=== PATIENT | female | born 1990 | race Caucasian/White ===

== ENCOUNTER → 2018-12-09 | Outpatient (CLI) | payer BC, OTHER ==
--- NOTE | 2018-12-09 14:42 | US ---
EXAMINATION TYPE: US pelvic complete DATE OF EXAM: 12/09/2018 COMPARISON: NONE CLINICAL HISTORY: 28-year-old female N92.0 Menorrhagia. Heavy, painful periods x 4 years, gotten wors e in past 6 months, 3, para 3, history of ovarian cysts, patient on control TECHNIQUE: Transabdominal sonographic images of the pelvis were acquired. Transvaginal sonographic images were medically necessary to better assess the following anatomy: ovaries Date of LMP: 1 month ago FINDINGS: EXAM MEASUREMENTS: Uterus: 9.1 x 4.4 x 4.9 cm Endometrial Stripe: 1.0 cm Right Ovary: not seen Left Ovary: not seen 1. Uterus: anteverted, mildly heterogeneous 2. Endometrium: wnl 3. Right Ovary: not seen due to overlying bowel gas 4. Left Ovary: not seen due to overlying bowel gas 5. Bilateral Adnexa: wnl 6. Posterior cul-de-sac: wnl IMPRESSION: 1. Mildly heterogeneous myometrium is nonspecific and may reflect diffuse small fibroid change or eunice nomyosis. 2. Either ovary could be visualized due to shadowing from bowel gas in the adnexa. 3. No pelvic free fluid.
== END | disposition home or self-care (01) ==
LOC: RADUSWWP 12:02
PROVIDERS: ATTEND Pediatrics
DX: N85.8 Other specified noninflammatory disorders of uterus (principal)
CPT/HCPCS: 76830; 76856

== ENCOUNTER → 2018-12-09 | Outpatient (CLI) | payer BC, OTHER ==
--- NOTE | 2018-12-09 11:01 | FL ---
EXAMINATION: Cervical and Thoracic Esophagram DATE OF EXAM: 12/09/2018 CLINICAL INDICATION: 28-year-old female with dysphasia and acid reflux for years, sensation of food s ticking in throat. COMPARISON: None Total Fluoroscopy Time: 1 minute 37 seconds. Total images: 37 FINDINGS: The swallowing mechanism is normal and hypopharyngeal anatomy is preserved. The cervical and thoracic portions have a normal course and caliber and normal motility. The mucosa is normal and no persistent filling defect is encountered. There is a small sliding hiatal hernia demonstrated. Valsalva and positional maneuvers could not repr oduce gastroesophageal reflux. This does not exclude its possibility IMPRESSION: 1. Small sliding hiatal hernia. Positional and Valsalva maneuvers on the present exam were unable to reproduce gastroesophageal reflux. This does not exclude its possibility. 2. No stricture or mucosal abnormality.
== END | disposition home or self-care (01) ==
LOC: RADFLWHC 09:29
PROVIDERS: ATTEND Internal Medicine Gastroenterology
DX: K44.9 Diaphragmatic hernia without obstruction or gangrene (principal)
CPT/HCPCS: 74220

== ENCOUNTER → 2019-04-20 | Outpatient (CLI) | payer BC, OTHER ==
--- NOTE | 2019-04-20 11:29 | US ---
EXAMINATION TYPE: US abdomen complete DATE OF EXAM: 04/20/2019 COMPARISON: NONE CLINICAL HISTORY: R10.9 abdominal pain. Pain EXAM MEASUREMENTS: Liver Length: 18 cm Gallbladder Wall: .2 cm CBD: .3 cm Spleen: 10.5 cm Right Kidney: 9.7 x 3.4 x 3.5 cm Left Kidney: 11.1 x 4.5 x3.1 cm Pancreas: Tail obscured by overlying bowel gas Liver: Increased attenuation Gallbladder: wnl Evidence for sonographic Wilson's sign: No CBD: wnl Spleen: wnl Right Kidney: wnl Left Kidney: wnl Upper IVC: wnl Abd Aorta: wnl The visualized liver is heterogeneously hyperechoic. Evaluation for focal masses is suboptimal due t o the heterogeneity. The intrahepatic portion of the IVC and proximal abdominal aorta are within norm al limits. There is no evidence of cholelithiasis. Common bile duct is unremarkable. The visualize d portions of the pancreas are homogenous. The spleen is unremarkable. Kidneys are symmetric and fr ee of hydronephrosis. No renal lesions are seen. IMPRESSION: Probable diffuse fatty infiltration of liver. No suspicious acute findings are seen.
== END | disposition home or self-care (01) ==
LOC: RADUSWWP 10:44
PROVIDERS: ATTEND Nurse Practitioner Adult Health
DX: R10.9 Unspecified abdominal pain (principal)
CPT/HCPCS: 76700

== ENCOUNTER 2019-05-27 23:35 | Emergency (ER) | payer BC, OTHER ==
[2019-05-27 23:46] VITALS: RESP 18
[2019-05-27] MEDS ORDERED: SODIUM CHLORIDE 0.9% 1,000 ML IV STA (23:57)
[2019-05-27] MEDS ORDERED: ONDANSETRON 4 MG/2 ML VIAL IVP STA (23:57)
[2019-05-28 00:39] LABS: Basophils # (A) 0.1 k/uL (0-0.2); Basophils % (A) 1 %; Eosinophils # (A) 0.7 k/uL (0-0.7); Eosinophils % (A) 7 %; HCT 41.9 % (34.0-46.0); HGB 13.5 gm/dL (11.4-16.0); Hypochromasia Slight; Lymphocytes % (A) 30 %; MCH 28.4 pg (25.0-35.0); MCHC 32.3 g/dL (31.0-37.0); MCV 87.8 fL (80.0-100.0); Mean Platelet Volume 6.8; Monocytes # (A) 0.4 k/uL (0-1.0); Monocytes % (A) 4 %; Neutrophils # (A) 5.8 k/uL (1.3-7.7); Neutrophils % (A) 57 %; Platelet Count 346 k/uL (150-450); RBC 4.76 m/uL (3.80-5.40); RDW 12.8 % (11.5-15.5); WBC 10.2 k/uL (3.8-10.6)
[2019-05-28 00:43] LABS: ALT 63 U/L (9-52); AST 39 U/L (14-36); African American GFR (CKD) >90 (>60 ml/min/1.73 sqM); Albumin 4.5 g/dL (3.5-5.0); Alkaline Phosphatase 85 U/L (38-126); Anion Gap 11 mmol/L; Blood Urea Nitrogen 12 mg/dL (7-17); Calcium 9.8 mg/dL (8.4-10.2); Carbon Dioxide 22 mmol/L (22-30); Chloride 108 mmol/L (98-107); Glucose 121 mg/dL (74-99); Sodium 141 mmol/L (137-145); Total Bilirubin 0.3 mg/dL (0.2-1.3); Total Protein 7.7 g/dL (6.3-8.2)
--- NOTE | 2019-05-28 00:46 | ED ---
General Adult HPI - General Chief complaint: Abdominal Pain Stated complaint: Abd Pain Time Seen by Provider: 05/27/19 23:51 Source: patient, RN notes reviewed, old records reviewed Mode of arrival: ambulatory Limitations: no limitations - History of Present Illness Initial comments: 28-year-old female patient past history significant for hysterectomy appr oximately one month ago, [place] for her presenting chief complaint of periumbilical abdominal pain. Patient reports that this pain has began earlier today. She has had some nausea without emesis. Reports that pain is now migrating to right periumbilical/right lower quadrant region. Denies any other complaints. Systemic: Pt denies fatigue, fever/chills, rash. Pt denies weakness, night sweats, weight loss. Neuro: Pt denies headache, visual disturbances, syncope or pre-syncope. HEENT: Pt denies ocular discharge or irritation, otalgia, rhinorrhea, pharyngitis or notable lymphadenopathy. Cardiopulmonary: Pt denies chest pain, SOB, heart palpitations, dyspnea on exertion. Abdominal/GI: Pt denies v/d. : Pt denies dysuria, burning w/ urination, frequency/urgency. Denies new onset urinary or bowel incontinence. MSK: Pt denies myalgia, loss of strength or function in extremities. Neuro: Pt denies new onset weakness, paresthesias. - Related Data Allergies Allergy/AdvReac Type Severity Reaction Status Date / Time ciprofloxacin [From Cipro] Allergy Itching Verified 05/27/19 23:49 codeine Allergy Itching Verified 05/27/19 23:49 nitrofurantoin Allergy Itching Verified 05/27/19 23:49 [From Macrobid] prednisone Allergy Unknown Verified 05/27/19 23:49 Sulfa (Sulfonamide Allergy Itching Verified 05/27/19 23:49 Antibiotics) sulfamethoxazole Allergy Itching Verified 05/27/19 23:49 [From Bactrim] trimethoprim [From Bactrim] Allergy Itching Verified 05/27/19 23:49 phenazopyridine AdvReac Abdominal Verified 05/27/19 23:49 [From Pyridium] Pain Review of Systems ROS Statement: Those systems with pertinent positive or pertinent negative responses have been documented in the HPI. ROS Other: All systems not noted in ROS Statement are negative. Past Medical History Past Medical History: GERD/Reflux Additional Past Medical History / Comment(s): IBS History of Any Multi-Drug Resistant Organisms: None Reported Past Surgical History: Hysterectomy Past Psychological History: Anxiety, Depression Smoking Status: Never smoker Past Alcohol Use History: None Reported Past Drug Use History: None Reported General Exam - General Exam Comments Initial Comments: Constitutional: NAD, AOX3, Pt has pleasant affect. HEENT: NC/AT, trachea midline, neck supple, no lymphadenopathy. Posterior pharynx non erythematous, without exudates. External ears appear normal, without discharge. Mucous membranes moist. Eyes PERRLA, EOM intact. There is no scleral icterus. No pallor noted. Cardiopulmonary: RRR, no murmurs, rubs or gallops, no JVD noted. Lungs CTAB in anterior and posterior shoemaker. No peripheral edema. Abdominal exam: Abdomen soft and non-distended. Abdomen tender to palpation in periumbilical, right lower quadrant region. No guarding no JVD.. Bowel sounds active in LLQ. No hepatosplenomegaly. No ecchymosis Neuro: CN II-XII grossly intact. No nuchal rigidity. No raccon eyes, no poole sign, no hemotympanum. No cervical spinal tenderness. MSK: No posterior calf tenderness bilaterally, homans sign negative bilaterally. Posterior tibialis and radial pulse +2 bilaterally. Sensation intact in upper and lower extremities. Full active ROM in upper and lower extremities, 5/5 stregnth. Limitations: no limitations Course Vital Signs 05/27/19 23:43 Temperature 98.2 F Pulse Rate 77 Respiratory 18 Rate Blood Pressure 106/59 O2 Sat by Pulse 98 Oximetry Medical Decision Making - Medical Decision Making 28-year-old female patient approximately 4 weeks status post hysterectomy presents to ED complaining of periumbilical [place] pain now migrating to right lower quadrant. Patient vital signs stable, afebrile. Physical exam displayed right periumbilical, right lower quadrant pain. Patient offered ultrasound, declined these that she had rather have a CAT scan. Laboratory investigations non-impressive. Mildly elevated liver enzymes patient will have rechecked. CT of abdomen and pelvis displayed by infiltration of liver, contracted gallbladder, no dilated ducts, normal appendix. Right upper Quadrant is nontender. Findings are patient. Patient was understanding. Patient discharged to follow up with primary Rather tomorrow. Return to ER if condition worsens. Also follow up with surgeon. Case discussed with Dr. Keenan. - Lab Data Result diagrams: 05/28/19 00:20 05/28/19 00:20 Lab Results 05/28/19 05/28/19 05/28/19 Range/Units 00:20 00:20 00:20 WBC 10.2 (3.8-10.6) k/uL RBC 4.76 (3.80-5.40) m/uL Hgb 13.5 (11.4-16.0) gm/dL Hct 41.9 (34.0-46.0) % MCV 87.8 (80.0-100.0) fL MCH 28.4 (25.0-35.0) pg MCHC 32.3 (31.0-37.0) g/dL RDW 12.8 (11.5-15.5) % Plt Count 346 (150-450) k/uL Neutrophils % 57 % Lymphocytes % 30 % Monocytes % 4 % Eosinophils % 7 % Basophils % 1 % Neutrophils # 5.8 (1.3-7.7) k/uL Lymphocytes # 3.0 (1.0-4.8) k/uL Monocytes # 0.4 (0-1.0) k/uL Eosinophils # 0.7 (0-0.7) k/uL Basophils # 0.1 (0-0.2) k/uL Hypochromasia Slight Sodium 141 (137-145) mmol/L Potassium 4.0 (3.5-5.1) mmol/L Chloride 108 H (98-107) mmol/L Carbon Dioxide 22 (22-30) mmol/L Anion Gap 11 mmol/L BUN 12 (7-17) mg/dL Creatinine 0.64 (0.52-1.04) mg/dL Est GFR (CKD-EPI)AfAm >90 (>60 ml/min/1.73 sqM) Est GFR (CKD-EPI)NonAf >90 (>60 ml/min/1.73 sqM) Glucose 121 H (74-99) mg/dL Plasma Lactic Acid [place]ino[place] 1.5 (0.7-2.0) mmol/L Calcium 9.8 (8.4-10.2) mg/dL Total Bilirubin 0.3 (0.2-1.3) mg/dL AST 39 H (14-36) U/L ALT 63 H (9-52) U/L Alkaline Phosphatase 85 (38-126) U/L Total Protein 7.7 (6.3-8.2) g/dL Albumin 4.5 (3.5-5.0) g/dL Lipase 187 (23-300) U/L Urine Color Urine Appearance (Clear) Urine pH (5.0-8.0) Ur Specific [place] (1.001-1.035) Urine Protein (Negative) Urine Glucose (UA) (Negative) Urine Ketones (Negative) Urine Blood (Negative) Urine Nitrite (Negative) Urine Bilirubin (Negative) Urine Urobilinogen (<2.0) mg/dL Ur Leukocyte Esterase (Negative) 05/28/19 Range/Units 01:40 WBC (3.8-10.6) k/uL RBC (3.80-5.40) m/uL Hgb (11.4-16.0) gm/dL Hct (34.0-46.0) % MCV (80.0-100.0) fL MCH (25.0-35.0) pg MCHC (31.0-37.0) g/dL RDW (11.5-15.5) % Plt Count (150-450) k/uL Neutrophils % % Lymphocytes % % Monocytes % % Eosinophils % % Basophils % % Neutrophils # (1.3-7.7) k/uL Lymphocytes # (1.0-4.8) k/uL Monocytes # (0-1.0) k/uL Eosinophils # (0-0.7) k/uL Basophils # (0-0.2) k/uL Hypochromasia Sodium (137-145) mmol/L Potassium (3.5-5.1) mmol/L Chloride (98-107) mmol/L Carbon Dioxide (22-30) mmol/L Anion Gap mmol/L BUN (7-17) mg/dL Creatinine (0.52-1.04) mg/dL Est GFR (CKD-EPI)AfAm (>60 ml/min/1.73 sqM) Est GFR (CKD-EPI)NonAf (>60 ml/min/1.73 sqM) Glucose (74-99) mg/dL Plasma Lactic Acid [place] (0.7-2.0) mmol/L Calcium (8.4-10.2) mg/dL Total Bilirubin (0.2-1.3) mg/dL AST (14-36) U/L ALT (9-52) U/L Alkaline Phosphatase (38-126) U/L Total Protein (6.3-8.2) g/dL Albumin (3.5-5.0) g/dL Lipase (23-300) U/L Urine Color Light Yellow Urine Appearance Clear (Clear) Urine pH 7.0 (5.0-8.0) Ur Specific [place] >1.050 H (1.001-1.035) Urine Protein Trace H (Negative) Urine Glucose (UA) Negative (Negative) Urine Ketones Negative (Negative) Urine Blood Negative (Negative) Urine Nitrite Negative (Negative) Urine Bilirubin Negative (Negative) Urine Urobilinogen <2.0 (<2.0) mg/dL Ur Leukocyte Esterase Negative (Negative) Disposition Clinical Impression: Abdominal pain Disposition: HOME SELF-CARE Condition: Stable Instructions (If sedation given, give patient instructions): Abdominal Pain (ED) Additional Instructions: Patient to adhere to previously discussed treatment plan and will take medication(s) as directed. Patient to follow up with PCP in 1-2 days. Patient to return to ED if symptoms do not improve. Follow-up with primary care provider and surgeon tomorrow. Return to ER if condition worsens. Is patient prescribed a controlled substance at d/c from ED?: No Referrals: Agustin Bradley MD [Primary Care Provider] - 1-2 days
--- NOTE | 2019-05-28 01:03 | CT ---
EXAMINATION TYPE: CT abdomen pelvis w con DATE OF EXAM: 05/28/2019 COMPARISON: None HISTORY: pain CT DLP: 1391.2 mGycm Automated exposure control for dose reduction was used. TECHNIQUE: Helical acquisition of images was performed from the lung bases through the pelvis. CONTRAST: Performed without Oral Contrast and with IV Contrast, patient injected with 100 mL of Isovue 370. FINDINGS: Lung bases are clear. There is no pleural effusion. Heart size is normal. There is no pericardial eff usion. There is some fatty infiltration of the liver. Gallbladder is contracted. Bile ducts are not dilated. Spleen is intact. There is no pancreatic mass. Stomach is intact. There is no adrenal mass. Kidneys show satisfactory contrast opacification. There is no hydronephrosi s. Delayed images show normal contrast excretion. Ureters are not dilated. There is no retroperitonea l adenopathy. Bladder distends smoothly. There is no inguinal hernia. There is no free fluid in the pelvis. There is no mesenteric edema. There is no ascites or free air. The appendix is posterior and appears normal. There is apparent hysterectomy. There is no evidence of pelvic mass. Lumbar spine is intact. Disc spaces are normal. Bony pelvis is intact. I see no bony destructive proc ess. IMPRESSION: There is some fatty infiltration of the liver. Contracted gallbladder. No dilated ducts. Normal appen rain. IMPRESSION:
[2019-05-28 01:47] LABS: Appearance,Urine Clear (Clear); Bilirubin,Urine Negative (Negative); Blood,Urine Negative (Negative); Color,Urine Light Yellow; Glucose,Urine (UA) Negative (Negative); Ketones,Urine Negative (Negative); Leukocyte Esterase,Urine Negative (Negative); Nitrite,Urine Negative (Negative); Protein,Urine Trace (Negative); Urobilinogen,Urine <2.0 mg/dL (<2.0)
[2019-05-28 01:51] LABS: Specific Gravity,Urine >1.050 (1.001-1.035)
[2019-05-28 02:21] VITALS: BP 110/61; PULSE 72; TEMP 98.1
== END 2019-05-28 02:23 | disposition home or self-care (01) ==
LOC: EC 23:35
DX: R10.31 Right lower quadrant pain (principal); R74.8 Abnormal levels of other serum enzymes; K76.0 Fatty (change of) liver, not elsewhere classified; Z90.710 Acquired absence of both cervix and uterus; Z53.29 Procedure and treatment not carried out because of patient's decision for other reasons; Z88.1 Allergy status to other antibiotic agents; Z88.2 Allergy status to sulfonamides; Z88.5 Allergy status to narcotic agent; Z88.8 Allergy status to other drugs, medicaments and biological substances
CPT/HCPCS: 36415; 80053; 83605; 83690; 85025; 81003; 74177; 99284; 96374; 96361 ×2; J2405; Q9967

== ENCOUNTER → 2019-06-25 | Outpatient (CLI) | payer BC, OTHER ==
--- NOTE | 2019-06-25 16:08 | NM ---
EXAMINATION TYPE: NM hepatobiliary w EF DATE OF EXAM: 06/25/2019 COMPARISON: CT 05/28/2019 HISTORY: Right upper quadrant pain TECHNIQUE: After the intravenous administration of 5.3 mCi Tc 99m Mebrofenin hepatobiliary scintigrap hy is performed. Immediate images post injection. FINDINGS: There is satisfactory initial accumulation of tracer by the liver. The gallbladder is visualized wit hin 8 minutes. The small bowel activity is noted within 12 minutes. At one hour 8 ounces of oral en sure plus is given to mimic CCK and gallbladder ejection fraction is calculated at 49 %, in the dennise l range. Therefore there is no scintigraphic evidence of cystic or common bile duct obstruction to s uggest acute cholecystitis or gallbladder dyskinesia. IMPRESSION: Exam is within normal limits.
== END | disposition home or self-care (01) ==
LOC: RADNMMAIN 12:42
PROVIDERS: ATTEND Pediatrics
DX: R10.11 Right upper quadrant pain (principal)
CPT/HCPCS: 78226; A9537

== ENCOUNTER 2019-07-21 10:04 | Emergency (ER) | payer BC, OTHER ==
[2019-07-21] MEDS ORDERED: KETOROLAC 30 MG/ML 1 ML VIAL IVP STA (11:10)
[2019-07-21] MEDS ORDERED: ONDANSETRON 4 MG/2 ML VIAL IVP STA (11:10)
[2019-07-21] MEDS ORDERED: SODIUM CHLORIDE 0.9% 1,000 ML IV STA ×2 (11:10)
--- NOTE | 2019-07-21 11:12 | ED ---
Abdominal Pain HPI - General Chief Complaint: Abdominal Pain Stated Complaint: abd pain Time Seen by Provider: 07/21/19 11:03 Source: patient, RN notes reviewed, old records reviewed Mode of arrival: ambulatory Limitations: no limitations - History of Present Illness Initial Comments: Patient is a 21-year-old female. She presents today with worsening right-sided abdominal pain. Symptoms started last night around 5 PM, and in going This morning. Patient states that she is scheduled to have her gallbladder removed in August but states seems like the pain is getting worse. She states she over the past 2 weeks has not been able to eat or drink much due to abdominal pain. Patient states that she's lost 10 pounds during that time. Patient states that she's had no specific fevers or chills at this time. - Related Data Previous Rx's Medication Instructions Recorded Dicyclomine [Bentyl] 10 mg PO TID #12 capsule 07/21/19 Ondansetron [Zofran] 4 mg PO Q8HR PRN #8 tab 07/21/19 Pantoprazole Sodium [Protonix] 40 mg PO DAILY #12 tablet. 07/21/19 Allergies Allergy/AdvReac Type Severity Reaction Status Date / Time ciprofloxacin [From Cipro] Allergy Itching Verified 05/27/19 23:49 codeine Allergy Itching Verified 05/27/19 23:49 nitrofurantoin Allergy Itching Verified 05/27/19 23:49 [From Macrobid] prednisone Allergy Unknown Verified 05/27/19 23:49 Sulfa (Sulfonamide Allergy Itching Verified 05/27/19 23:49 Antibiotics) sulfamethoxazole Allergy Itching Verified 05/27/19 23:49 [From Bactrim] trimethoprim [From Bactrim] Allergy Itching Verified 05/27/19 23:49 phenazopyridine AdvReac Abdominal Verified 05/27/19 23:49 [From Pyridium] Pain Review of Systems ROS Statement: Those systems with pertinent positive or pertinent negative responses have been documented in the HPI. ROS Other: All systems not noted in ROS Statement are negative. Past Medical History Past Medical History: GERD/Reflux Additional Past Medical History / Comment(s): IBS History of Any Multi-Drug Resistant Organisms: None Reported Past Surgical History: Hysterectomy Past Psychological History: Anxiety, Depression Smoking Status: Never smoker Past Alcohol Use History: None Reported Past Drug Use History: None Reported General Exam - General Exam Comments Initial Comments: 29 year old female, no distress. Limitations: no limitations General appearance: alert, in no apparent distress Head exam: Present: atraumatic, normocephalic, normal inspection Eye exam: Present: normal appearance, PERRL, EOMI. Absent: scleral icterus, conjunctival injection, periorbital swelling ENT exam: Present: normal exam, mucous membranes moist Neck exam: Present: normal inspection. Absent: tenderness, meningismus, lymphadenopathy Respiratory exam: Present: normal lung sounds bilaterally. Absent: respiratory distress, wheezes, rales, rhonchi, stridor Cardiovascular Exam: Present: regular rate, normal rhythm, normal heart sounds. Absent: systolic murmur, diastolic murmur, rubs, gallop, clicks GI/Abdominal exam: Present: soft, tenderness (minimal epigastric, RUQ te nderness. ), normal bowel sounds. Absent: distended, guarding, rebound, rigid Extremities exam: Present: normal inspection, full ROM, normal capillary refill. Absent: tenderness, pedal edema, joint swelling, calf tenderness Back exam: Present: normal inspection Neurological exam: Present: alert, oriented X3, CN II-XII intact Psychiatric exam: Present: normal affect, normal mood Skin exam: Present: warm, dry, intact, normal color. Absent: rash Course Vital Signs 07/21/19 07/21/19 10:05 13:44 Temperature 98.5 F 98.0 F Pulse Rate 102 H 83 Respiratory 19 18 Rate Blood Pressure 123/77 119/73 O2 Sat by Pulse 98 98 Oximetry Medical Decision Making - Medical Decision Making 21-year-old female presents today for evaluation for diffuse abdominal pain worse on the right side. This is consistent with her gallbladder she's had this removed in approximately one month. At this time she declined any pain medication was offered emergency room. She did have Zofran. Blood work was reviewed and unremarkable. KUB shows nonobstructive pattern, likely gastroenteritis. I discussed the Patient with normal labwork doesn't require further imaging at this time. Discussed if repeat pain she denies return for reevaluation. Discussed that likely still suffering from biliary colic and gastroenteritis. Discussed return parameters and following up with her surgeon. - Lab Data Result diagrams: 07/21/19 11:26 07/21/19 11:26 Lab Results 07/21/19 07/21/19 07/21/19 Range/Units 11:26 11:26 11:26 WBC 8.9 (3.8-10.6) k/uL RBC 4.78 (3.80-5.40) m/uL Hgb 13.5 (11.4-16.0) gm/dL Hct 41.3 (34.0-46.0) % MCV 86.4 (80.0-100.0) fL MCH 28.1 (25.0-35.0) pg MCHC 32.6 (31.0-37.0) g/dL RDW 13.4 (11.5-15.5) % Plt Count 323 (150-450) k/uL Neutrophils % 74 % Lymphocytes % 19 % Monocytes % 4 % Eosinophils % 2 % Basophils % 0 % Neutrophils # 6.6 (1.3-7.7) k/uL Lymphocytes # 1.7 (1.0-4.8) k/uL Monocytes # 0.4 (0-1.0) k/uL Eosinophils # 0.1 (0-0.7) k/uL Basophils # 0.0 (0-0.2) k/uL Hypochromasia Slight PT 10.1 (9.0-12.0) sec INR 0.9 (<1.2) APTT 25.9 (22.0-30.0) sec Sodium 141 (137-145) mmol/L Potassium 4.1 (3.5-5.1) mmol/L Chloride 106 (98-107) mmol/L Carbon Dioxide 26 (22-30) mmol/L Anion Gap 9 mmol/L BUN 11 (7-17) mg/dL Creatinine 0.66 (0.52-1.04) mg/dL Est GFR (CKD-EPI)AfAm >90 (>60 ml/min/1.73 sqM) Est GFR (CKD-EPI)NonAf >90 (>60 ml/min/1.73 sqM) Glucose 90 (74-99) mg/dL Calcium 9.6 (8.4-10.2) mg/dL Total Bilirubin 0.7 (0.2-1.3) mg/dL AST 29 (14-36) U/L ALT 32 (4-34) U/L Alkaline Phosphatase 97 (38-126) U/L Total Protein 7.6 (6.3-8.2) g/dL Albumin 4.6 (3.5-5.0) g/dL Amylase 40 (30-110) U/L Lipase 115 (23-300) U/L Urine Color Urine Appearance (Clear) Urine pH (5.0-8.0) Ur Specific [place] (1.001-1.035) Urine Protein (Negative) Urine Glucose (UA) (Negative) Urine Ketones (Negative) Urine Blood (Negative) Urine Nitrite (Negative) Urine Bilirubin (Negative) Urine Urobilinogen (<2.0) mg/dL Ur Leukocyte Esterase (Negative) 07/21/19 Range/Units 11:26 WBC (3.8-10.6) k/uL RBC (3.80-5.40) m/uL Hgb (11.4-16.0) gm/dL Hct (34.0-46.0) % MCV (80.0-100.0) fL MCH (25.0-35.0) pg MCHC (31.0-37.0) g/dL RDW (11.5-15.5) % Plt Count (150-450) k/uL Neutrophils % % Lymphocytes % % Monocytes % % Eosinophils % % Basophils % % Neutrophils # (1.3-7.7) k/uL Lymphocytes # (1.0-4.8) k/uL Monocytes # (0-1.0) k/uL Eosinophils # (0-0.7) k/uL Basophils # (0-0.2) k/uL Hypochromasia PT (9.0-12.0) sec INR (<1.2) APTT (22.0-30.0) sec Sodium (137-145) mmol/L Potassium (3.5-5.1) mmol/L Chloride (98-107) mmol/L Carbon Dioxide (22-30) mmol/L Anion Gap mmol/L BUN (7-17) mg/dL Creatinine (0.52-1.04) mg/dL Est GFR (CKD-EPI)AfAm (>60 ml/min/1.73 sqM) Est GFR (CKD-EPI)NonAf (>60 ml/min/1.73 sqM) Glucose (74-99) mg/dL Calcium (8.4-10.2) mg/dL Total Bilirubin (0.2-1.3) mg/dL AST (14-36) U/L ALT (4-34) U/L Alkaline Phosphatase (38-126) U/L Total Protein (6.3-8.2) g/dL Albumin (3.5-5.0) g/dL Amylase (30-110) U/L Lipase (23-300) U/L Urine Color Yellow Urine Appearance Clear (Clear) Urine pH 6.5 (5.0-8.0) Ur Specific [place] 1.017 (1.001-1.035) Urine Protein Negative (Negative) Urine Glucose (UA) Negative (Negative) Urine Ketones 1+ H (Negative) Urine Blood Negative (Negative) Urine Nitrite Negative (Negative) Urine Bilirubin Negative (Negative) Urine Urobilinogen <2.0 (<2.0) mg/dL Ur Leukocyte Esterase Negative (Negative) - Radiology Data Radiology results: report reviewed KUB shows nonspecific abdomen. Differential air-fluid levels present in left midabdomen. Colonic bowel gas present. Consider gastritis. Early obstruction without dilated loops of bowels less likely. Disposition Clinical Impression: Biliary colic Disposition: HOME SELF-CARE Condition: Good Instructions (If sedation given, give patient instructions): Abdominal Pain (ED) Additional Instructions: Patient advised to follow-up with your primary care physician or surgeon. Return to emergency department if any alarming signs or symptoms occur. Prescriptions: Dicyclomine [Bentyl] 10 mg PO TID #12 capsule Pantoprazole Sodium [Protonix] 40 mg PO DAILY #12 tablet. Ondansetron [Zofran] 4 mg PO Q8HR PRN #8 tab PRN Reason: Nausea And Vomiting Is patient prescribed a controlled substance at d/c from ED?: No Referrals: Agustin Bradley MD [Primary Care Provider] - 1-2 days Time of Disposition: 13:49
[2019-07-21 11:38] LABS: Basophils % (A) 0 %; Eosinophils # (A) 0.1 k/uL (0-0.7); Eosinophils % (A) 2 %; HCT 41.3 % (34.0-46.0); HGB 13.5 gm/dL (11.4-16.0); Hypochromasia Slight; Lymphocytes # (A) 1.7 k/uL (1.0-4.8); Lymphocytes % (A) 19 %; MCH 28.1 pg (25.0-35.0); MCHC 32.6 g/dL (31.0-37.0); MCV 86.4 fL (80.0-100.0); Mean Platelet Volume 8.3; Monocytes # (A) 0.4 k/uL (0-1.0); Monocytes % (A) 4 %; Neutrophils # (A) 6.6 k/uL (1.3-7.7); Neutrophils % (A) 74 %; Platelet Count 323 k/uL (150-450); RBC 4.78 m/uL (3.80-5.40); RDW 13.4 % (11.5-15.5); WBC 8.9 k/uL (3.8-10.6)
[2019-07-21 11:43] LABS: Appearance,Urine Clear (Clear); Bilirubin,Urine Negative (Negative); Blood,Urine Negative (Negative); Color,Urine Yellow; Glucose,Urine (UA) Negative (Negative); Ketones,Urine 1+ (Negative); Leukocyte Esterase,Urine Negative (Negative); Nitrite,Urine Negative (Negative); PH, Urine 6.5 (5.0-8.0); Protein,Urine Negative (Negative); Specific Gravity,Urine 1.017 (1.001-1.035); Urobilinogen,Urine <2.0 mg/dL (<2.0)
[2019-07-21 11:50] LABS: ALT 32 U/L (4-34); AST 29 U/L (14-36); African American GFR (CKD) >90 (>60 ml/min/1.73 sqM); Albumin 4.6 g/dL (3.5-5.0); Alkaline Phosphatase 97 U/L (38-126); Amylase 40 U/L (30-110); Anion Gap 9 mmol/L; Blood Urea Nitrogen 11 mg/dL (7-17); Calcium 9.6 mg/dL (8.4-10.2); Carbon Dioxide 26 mmol/L (22-30); Chloride 106 mmol/L (98-107); Glucose 90 mg/dL (74-99); Non-African American GFR(CKD) >90 (>60 ml/min/1.73 sqM); Potassium 4.1 mmol/L (3.5-5.1); Sodium 141 mmol/L (137-145); Total Bilirubin 0.7 mg/dL (0.2-1.3); Total Protein 7.6 g/dL (6.3-8.2)
[2019-07-21 11:51] LABS: INR 0.9 (<1.2); Partial Thromboplastin Time 25.9 sec (22.0-30.0); Prothrombin Time 10.1 sec (9.0-12.0)
--- NOTE | 2019-07-21 12:56 | XR ---
EXAMINATION TYPE: XR KUB DATE OF EXAM: 07/21/2019 COMPARISON: None INDICATION: Bilateral flank pain TECHNIQUE: Single view abdomen upright view FINDINGS: There is a differential air-fluid level within the small bowel loop within the midabdomen. Some colon ic bowel gas is present. Psoas margins are normal. No organomegaly is present. No mass effect is evident. IMPRESSION: 1. Nonspecific abdomen. Differential air-fluid levels present in the left midabdomen. Colonic bowel g as is present. Consider gastroenteritis. Early obstruction without dilated loops of bowel appears les s likely.
[2019-07-21 13:46] VITALS: BP 119/73; PULSE 83; RESP 18; TEMP 98
== END 2019-07-21 14:18 | disposition home or self-care (01) ==
LOC: EC 10:04
DX: K80.50 Calculus of bile duct without cholangitis or cholecystitis without obstruction (principal); Z88.1 Allergy status to other antibiotic agents; Z88.5 Allergy status to narcotic agent; Z88.2 Allergy status to sulfonamides; Z88.8 Allergy status to other drugs, medicaments and biological substances
CPT/HCPCS: 36415; 80053; 82150; 83690; 85025; 85610; 85730; 81003; 74018; 99284; 96374; 96361 ×3; J2405

== ENCOUNTER 2019-07-23 12:02 | Day surgery (SDC) | payer BC, OTHER ==
[2019-07-22 13:51] VITALS: BMI 35.0
[~2019-07-23 12:02] MED LIST: HEPARIN SODIUM,PORCINE 5,000 UNIT/ML 1 ML VIAL SQ ONE; LACTATED RINGERS 1,000 ML IV SCH; MIDAZOLAM 2 MG/2 ML VIAL IV PRN; ONDANSETRON 4 MG/2 ML VIAL IVP ONE; SCOPOLAMINE 1.5MG/72HR PATCH TRANSDERM ONE
[2019-07-23] MEDS ORDERED: GABAPENTIN 300 MG CAP PO STA (12:34)
[2019-07-23] MEDS ORDERED: ACETAMINOPHEN TAB 500 MG TAB PO STA (12:34)
[2019-07-23] MEDS ORDERED: INDOCYANINE GREEN 25 MG VIAL IV STA (12:34)
--- NOTE | 2019-07-23 12:36 | P.GSHP ---
History of Present Illness H&P Date: 07/23/19 CHIEF COMPLAINT: Cholecystitis HISTORY OF PRESENT ILLNESS: The patient is a 29-year-old female who presents with history of epigastric including right upper quadrant abdominal pain. She underwent diagnostic studies for her gallbladder. Separately her clinical picture was consistent with cholecystitis. Now she presents for surgical intervention. PAST MEDICAL HISTORY: Please see list PAST SURGICAL HISTORY: Please see list MEDICATIONS: Please see list ALLERGIES: Denies. SOCIAL HISTORY: No illicit drug use or recent tobacco use FAMILY HISTORY: Pertinent for gallbladder disease REVIEW OF ORGAN SYSTEMS: CONSTITUTIONAL: No reports of fevers or chills. HEENT: Denies any troubles with the vision or hearing. ENDOCRINE: No reports of hypothyroidism. No diabetes. RESPIRATORY: No recent pneumonias. CARDIOVASCULAR: Denies chest pain or palpitations GI: No blood in stools or constipation. MUSCULOSKELETAL: Has occasional joint pain including back pain. NEURO: No seizure disorders or headaches. No recent stroke. PSYCH: No depression or suicidal ideation. GENITOURINARY: No active blood in urine. No urinary hesitancy. HEMATOLOGIC: No personal or family history of DVTs or pulmonary emboli. SKIN: No skin cancer. PHYSICAL EXAM: VITAL SIGNS: Afebrile vital signs stable GENERAL: Well-developed pleasant in no acute distress. HEENT: No scleral icterus. Extraocular movements grossly intact. Moist buccal mucosa. NECK: Supple without lymphadenopathy. CHEST: Unlabored respirations. Equal bilateral excursions. CARDIOVASCULAR: Regular rate regular rhythm rhythm. Distal 2+ pulses. ABDOMEN: Soft, nondistended. Tender along the epigastrium and right upper quadrant. MUSCULOSKELETAL: No clubbing, cyanosis, or edema. NEURO: Cranial nerves II to XII within normal limits. No focal or lateralizing signs. PSYCH: Alert and oriented to person, place and time. SKIN: Well-perfused good skin turgor. ASSESSMENT: 1. Epigastric and right upper quadrant abdominal pain 2. Chronic cholecystitis 3. Symptomatic gallstones. PLAN: 1. Will need a robotic cholecystectomy possible open. Benefits and risks were described. 2. Heparin for DVT prophylaxis 5000 units. 3. Antibiotic prophylaxis. Past Medical History Past Medical History: GERD/Reflux Additional Past Medical History / Comment(s): abdominal pain and nausea,IBS,states "very sensitive to pain and tolerance" History of Any Multi-Drug Resistant Organisms: None Reported Past Surgical History: Hysterectomy Past Anesthesia/Blood Transfusion Reactions: Postoperative Nausea & Vomiting (PONV) Additional Past Anesthesia/Blood Transfusion Reaction / Comment(s): no hx blood transfusion Smoking Status: Never smoker - Past Family History Mother Family Medical History: No Reported History Medications and Allergies Home Medications Medication Instructions Recorded Confirmed Type Acetaminophen Tab [Tylenol Tab] 1,000 mg PO Q6HR PRN 07/22/19 07/22/19 History Diphenox-Atrop 2.5-0.025 mg 1 tab PO 5XD PRN 07/22/19 07/22/19 History [Lomotil] Ibgard 1 tab PO DAILY PRN 07/22/19 07/22/19 History Ibuprofen 600 mg PO ONCE 07/22/19 07/22/19 History Omeprazole [PriLOSEC] 20 mg PO HS 07/22/19 07/22/19 History Ranitidine HCl [Zantac] 150 mg PO QAM 07/22/19 07/22/19 History buPROPion [Wellbutrin] 75 mg PO BID 07/22/19 07/22/19 History lamoTRIgine [LaMICtal] 50 mg PO QAM 07/22/19 07/22/19 History Allergies Allergy/AdvReac Type Severity Reaction Status Date / Time ciprofloxacin [From Cipro] Allergy Itching Verified 07/22/19 13:39 codeine Allergy Itching Verified 07/22/19 13:39 nitrofurantoin Allergy Itching Verified 07/22/19 13:39 [From Macrobid] prednisone Allergy "marcelo legs Verified 07/22/19 13:39 go numb" Sulfa (Sulfonamide Allergy Itching Verified 07/22/19 13:39 Antibiotics) sulfamethoxazole Allergy Itching Verified 07/22/19 13:39 [From Bactrim] trimethoprim [From Bactrim] Allergy Itching Verified 07/22/19 13:39 phenazopyridine AdvReac Abdominal Verified 07/22/19 13:39 [From Pyridium] Pain
[2019-07-23] MEDS ORDERED: DEXAMETHASONE SOD PHOSPHATE 10 MG/ML 1 ML VIAL IV ONE ×2 (12:58→17:00)
[2019-07-23] MEDS ORDERED: diphenhydrAMINE 50 MG/ML 1 ML VIAL IVP ONE (13:17)
[2019-07-23] MEDS ORDERED: MIDAZOLAM 2 MG/2 ML VIAL IVP ONE (14:52)
[2019-07-23] MEDS ORDERED: KETOROLAC 30 MG/ML 1 ML VIAL ONE (15:02)
[2019-07-23] MEDS ORDERED: GLYCOPYRROLATE 0.2 MG/ML 2 ML VIAL ONE (15:02)
[2019-07-23] MEDS ORDERED: LIDOCAINE 1% INJ 10MG/ML (20 ML MDV) ONE (15:02)
[2019-07-23] MEDS ORDERED: NEOSTIGMINE 1 MG/ML 10 ML VIAL ONE (15:02)
[2019-07-23] MEDS ORDERED: PROPOFOL 10 MG/ML 20 ML VIAL IV ONE (15:02)
[2019-07-23] MEDS ORDERED: SUCCINYLCHOLINE CHLORIDE 100 MG/5 ML SYR IV ONE (15:02)
[2019-07-23] MEDS ORDERED: ROCURONIUM BROMIDE 10 MG/ML 10 ML VIAL IV ONE (15:02)
[2019-07-23] MEDS ORDERED: INDOCYANINE GREEN 25 MG VIAL IV ONE (15:02)
[2019-07-23] MEDS ORDERED: MIDAZOLAM 2 MG/2 ML VIAL ONE (15:02)
[2019-07-23] MEDS ORDERED: fentaNYL (PF) 50 MCG/ML 2 ML AMP ONE (15:02)
[2019-07-23] MEDS ORDERED: LIDOCAINE 1%-EPI 1:100,000 20 ML VIAL SQ ONE (15:04)
[2019-07-23 16:15] VITALS: TEMP 97.6
--- NOTE | 2019-07-23 16:32 | P.OP ---
Date of Procedure: 07/23/19 Description of Procedure: SURGEON: ARELY ORELLANA MD PREOPERATIVE DIAGNOSES: 1. Right upper quadrant abdominal pain 2. Chronic cholecystitis 3. Depressive disorder 4. Anxiety disorder 5. Morbid obesity due to excess calories, BMI 35.6 6. Gastroesophageal reflux disease POSTOPERATIVE DIAGNOSES: 1. Right upper quadrant abdominal pain 2. Chronic cholecystitis 3. Depressive disorder 4. Anxiety disorder 5. Morbid obesity due to excess calories, BMI 35.6 6. Gastroesophageal reflux disease OPERATION: Robotic-assisted da Lavinia Xi laparoscopic cholecystectomy, multiport with FIREFLY ESTIMATED BLOOD LOSS: 5 mL. SPECIMENS REMOVED: Gallbladder. COMPLICATIONS: None. OPERATIVE FINDINGS: 1. Chronic cholecystitis 2. Console time 11 minutes INDICATIONS: The patient is a 29year-old female who presents with cholelcystitis. Surgical intervention with a laparoscopic cholecystectomy was described at length including injury to the biliary tree, bleeding, infection, need for further surgery. Informed consent was obtained. Robotic assisted laparoscopic approach was described. Benefits and risks of the procedure including but not limited to bleeding, infection, injury to the biliary tree was described. Informed consent was obtained. DESCRIPTION OF PROCEDURE: Patient was brought to the operating room, placed in supine position. After general induction, the abdomen had been prepped and draped in standard sterile fashion. The robotic da Lavinia XI system was primed. After a timeout protocol was performed, the patient had been prepped and draped in standard sterile fashion. The patient was injected with indocyanine green. A 5 mm 0 degrees laparoscopic trocar entry was performed along the left upper quadrant. The abdomen insufflated to 15 mmHg pressure which was tolerated well. Diagnostic laparoscopy demonstrated no injury to bowel viscera or mesentery. The liver surface was unremarkable. Next, two 8 mm robotic ports were placed along the right upper abdomen. The camera 8-mm port was maintained along the epigastrium. Another 8 mm port was placed along the left upper abdominal wall after exchanging the 5 mm port. Please note that the ports were placed at least 10 to 15 cm away from the target anatomy of the gallbladder. The robot was docked along the left lateral abdomen. The patient was repositioned in reverse Trendelenburg position. Using a grasper for arm 3, a grasper for arm 4, including hook cautery for arm 1, the robotic system was docked and primed as described. Instruments were interchanged by the kennel assistant including hook cautery, Bovie cautery and clip appliers. I had sat at the console. The gallbladder fundus was retracted over the dome of the liver. Initial attention was brought to the infundibulum which was gently retracted in the inferior lateral approach. Using a grasper, the cystic duct including the cystic artery was carefully skeletonized. FIREFLY was used to identify the cystic artery and cystic structures. A critical view of safety was obtained. Large PLASTIC clips were used throughout the entire case. Using a clip rim turning machine operator 2 clips were placed proximally, and 1 clip was placed between the infundibulum and cystic duct and divided using cautery. Next, the cystic artery was similarly clipped and cauterized. Electro-Bovie cautery was used to remove the gallbladder from the hepatic fossa. Hemostasis was checked and found to be adequate. The robot was undocked. I re-scrubbed into the case. Using a 10 mm Endo Catch bag via the left upper quadrant incision, the specimen was removed from the abdominal cavity. All pneumoperitoneum instruments were evacuated from the abdominal cavity. The incisions were reapproximated using 4-0 Monocryl in an interrupted subcuticular fashion. Fascial defects were less than 8 mm in size. Please note along the trocar sites, local anesthetic was placed as a field block prior to insertion of all instruments. Liquid glue was applied to the skin. At the end of the procedure needle, sponge, and instrument count had been verified correct by the surgical assistant certified. The patient was transferred to postanesthesia care unit in stable condition. Intraoperative films were shared with the patient's family who were very pleased with the level of care. Plan - Discharge Summary Discharge Rx Participant: No New Discharge Prescriptions: New Simethicone [Gas-X] 125 mg PO AC-TID #20 capsule Ibuprofen [Motrin] 600 mg PO Q8HR PRN #30 tab PRN Reason: Pain Acetaminophen Tab [Tylenol Tab] 500 mg PO Q6H PRN #30 tablet PRN Reason: Pain No Action lamoTRIgine [LaMICtal] 50 mg PO QAM buPROPion [Wellbutrin] 75 mg PO BID Ranitidine HCl [Zantac] 150 mg PO QAM Omeprazole [PriLOSEC] 20 mg PO HS Diphenox-Atrop 2.5-0.025 mg [Lomotil] 1 tab PO 5XD PRN PRN Reason: loose stools Acetaminophen Tab [Tylenol Tab] 1,000 mg PO Q6HR PRN PRN Reason: Pain Ibuprofen 600 mg PO ONCE Ibgard 1 tab PO DAILY PRN PRN Reason: IBS Discharge Medication List Acetaminophen Tab [Tylenol Tab] 1,000 mg PO Q6HR PRN 07/22/19 [History] Diphenox-Atrop 2.5-0.025 mg [Lomotil] 1 tab PO 5XD PRN 07/22/19 [History] Ibgard 1 tab PO DAILY PRN 07/22/19 [History] Ibuprofen 600 mg PO ONCE 07/22/19 [History] Omeprazole [PriLOSEC] 20 mg PO HS 07/22/19 [History] Ranitidine HCl [Zantac] 150 mg PO QAM 07/22/19 [History] buPROPion [Wellbutrin] 75 mg PO BID 07/22/19 [History] lamoTRIgine [LaMICtal] 50 mg PO QAM 07/22/19 [History] Acetaminophen Tab [Tylenol Tab] 500 mg PO Q6H PRN #30 tablet 07/23/19 [Rx] Ibuprofen [Motrin] 600 mg PO Q8HR PRN #30 tab 07/23/19 [Rx] Simethicone [Gas-X] 125 mg PO AC-TID #20 capsule 07/23/19 [Rx] Follow up Appointment(s)/Referral(s): Arely Orellana MD [STAFF PHYSICIAN] - 08/05/19 (Please call to confirm time) Patient Instructions/Handouts: *Surgery [facility] - Scopalamine Patch Instructions, Laparoscopic Cholecystectomy (DC), Low Fat Diet (ED) Activity/Diet/Wound Care/Special Instructions: No lifting over 10 pounds in 2 weeks until Aug 06. December shower. No bath tub soaks for two weeks until Aug 06 Diet as tolerated. Use Tylenol and ibuprofen scheduled for the next 24-48 hours for best pain relief. Use ice along incisions for the today to prevent swelling. Discharge Disposition: HOME SELF-CARE
[2019-07-23] MEDS: fentaNYL (PF) 50 MCG/ML 2 ML AMP IV PRN ×2 (16:38→16:41)
[2019-07-23] MEDS ORDERED: SIMETHICONE 80 MG CHEWABLE PO ONE (17:00)
[2019-07-23] MEDS ORDERED: SIMETHICONE 40 MG/0.6 ML DROPS 2,000 MG/30 ML BOTTLE PO ONE (17:30)
[2019-07-23 19:08] VITALS: BP 124/81; PULSE 85; RESP 20
[2019-07-23] MEDS ORDERED: TAMSULOSIN 0.4 MG CAP.ER.24H PO ONE (19:20)
== END 2019-07-23 20:07 | disposition home or self-care (01) ==
LOC: OR 12:02
PROVIDERS: ATTEND Surgery Plastic and Reconstructive Surgery
DX: K80.10 Calculus of gallbladder with chronic cholecystitis without obstruction (principal); F32.9 Major depressive disorder, single episode, unspecified; F41.9 Anxiety disorder, unspecified; E66.01 Morbid (severe) obesity due to excess calories; K58.0 Irritable bowel syndrome with diarrhea; Z68.35 Body mass index [BMI] 35.0-35.9, adult; K21.9 Gastro-esophageal reflux disease without esophagitis; Z88.2 Allergy status to sulfonamides; Z88.5 Allergy status to narcotic agent; Z88.1 Allergy status to other antibiotic agents; Z88.8 Allergy status to other drugs, medicaments and biological substances; Z90.710 Acquired absence of both cervix and uterus; Z79.1 Long term (current) use of non-steroidal anti-inflammatories (NSAID); Z79.899 Other long term (current) drug therapy
CPT/HCPCS: 88304; 47562; J2250; J1200; J1644; J1100; J2710; J0690; J2405; J2001; J3010; J1885; J0330; J2704

== ENCOUNTER 2020-05-04 11:23 | Emergency (ER) | payer BC, OTHER ==
[2020-05-04 11:31] VITALS: RESP 18
[2020-05-04] MEDS ORDERED: SODIUM CHLORIDE 0.9% 1,000 ML IV STA (11:45)
[2020-05-04] MEDS ORDERED: LORazepam 2 MG/ML INJ IV STA (11:46)
[2020-05-04 12:02] LABS: Basophils # (A) 0.1 k/uL (0-0.2); Basophils % (A) 0 %; Eosinophils # (A) 0.1 k/uL (0-0.7); Eosinophils % (A) 1 %; HCT 41.4 % (34.0-46.0); HGB 13.2 gm/dL (11.4-16.0); Hypochromasia Slight; Lymphocytes # (A) 1.1 k/uL (1.0-4.8); Lymphocytes % (A) 11 %; MCH 27.3 pg (25.0-35.0); MCHC 31.9 g/dL (31.0-37.0); MCV 85.5 fL (80.0-100.0); Mean Platelet Volume 7.9; Monocytes # (A) 0.2 k/uL (0-1.0); Monocytes % (A) 2 %; Neutrophils # (A) 9.2 k/uL (1.3-7.7); Neutrophils % (A) 86 %; Platelet Count 379 k/uL (150-450); RBC 4.84 m/uL (3.80-5.40); RDW 14.3 % (11.5-15.5); WBC 10.8 k/uL (3.8-10.6)
[2020-05-04] MEDS ORDERED: ACETAMINOPHEN TAB 500 MG TAB PO STA (12:05)
--- NOTE | 2020-05-04 12:08 | ED ---
General Adult HPI - General Chief complaint: Abdominal Pain Stated complaint: ABD PAIN Time Seen by Provider: 05/04/20 11:28 Source: patient, EMS, RN notes reviewed Mode of arrival: EMS Limitations: no limitations - History of Present Illness Initial comments: 29-year-old female with a past medical history of GERD, cholecystectomy, hysterectomy presents to the emergency room for abdominal pain. Patient states has been ongoing for about 3 hours. States it is in her lower abdomen radiating worse to the right side. Patient states she has been nauseous but has not vomited. Patient reports she had a mucousy stool earlier.Patient has no other complaints at this time including shortness of breath, chest pain, vomiting, headache, or visual changes. - Related Data Home Medications Medication Instructions Recorded Confirmed Omeprazole [PriLOSEC] 20 mg PO HS 07/22/19 05/04/20 buPROPion [Wellbutrin] 75 mg PO BID 07/22/19 05/04/20 lamoTRIgine [LaMICtal] 50 mg PO QAM 07/22/19 05/04/20 Previous Rx's Medication Instructions Recorded Ondansetron [Zofran ODT] 4 mg PO Q8HR PRN #15 tab 05/04/20 Allergies Allergy/AdvReac Type Severity Reaction Status Date / Time ciprofloxacin [From Cipro] Allergy Itching Verified 05/04/20 13:37 codeine Allergy Itching Verified 05/04/20 13:37 nitrofurantoin Allergy Itching Verified 05/04/20 13:37 [From Macrobid] prednisone Allergy "marcelo legs Verified 05/04/20 13:37 go numb" Sulfa (Sulfonamide Allergy Itching Verified 05/04/20 13:37 Antibiotics) sulfamethoxazole Allergy Itching Verified 05/04/20 13:37 [From Bactrim] trimethoprim [From Bactrim] Allergy Itching Verified 05/04/20 13:37 phenazopyridine AdvReac Abdominal Verified 05/04/20 13:37 [From Pyridium] Pain Review of Systems ROS Statement: Those systems with pertinent positive or pertinent negative responses have been documented in the HPI. ROS Other: All systems not noted in ROS Statement are negative. Past Medical History Past Medical History: GERD/Reflux Additional Past Medical History / Comment(s): abdominal pain and nausea,IBS,states "very sensitive to pain and tolerance" History of Any Multi-Drug Resistant Organisms: None Reported Past Surgical History: Cholecystectomy, Hysterectomy Past Anesthesia/Blood Transfusion Reactions: Postoperative Nausea & Vomiting (PONV) Additional Past Anesthesia/Blood Transfusion Reaction / Comment(s): no hx blood transfusion Past Psychological History: Anxiety, Depression Smoking Status: Never smoker Past Alcohol Use History: None Reported Past Drug Use History: None Reported - Past Family History Mother Family Medical History: No Reported History General Exam Limitations: no limitations General appearance: alert, in no apparent distress Head exam: Present: atraumatic, normocephalic, normal inspection Eye exam: Present: normal appearance, PERRL, EOMI. Absent: scleral icterus, conjunctival injection, periorbital swelling ENT exam: Present: normal exam, mucous membranes moist Neck exam: Present: normal inspection, full ROM. Absent: tenderness, meningismus Respiratory exam: Present: normal lung sounds bilaterally. Absent: respiratory distress, wheezes, rales, rhonchi, stridor Cardiovascular Exam: Present: regular rate, normal rhythm, normal heart sounds. Absent: systolic murmur, diastolic murmur, rubs, gallop, clicks GI/Abdominal exam: Present: soft, tenderness (Patient has general lower abdominal tenderness. No right upper quadrant left upper quadrant or epigastric tenderness.), normal bowel sounds. Absent: distended, guarding, rebound, rigid Course Vital Signs 05/04/20 05/04/20 11:27 13:35 Temperature 100.6 F H 98.8 F Pulse Rate 89 111 H Respiratory 18 18 Rate Blood Pressure 116/92 115/77 O2 Sat by Pulse 99 100 Oximetry Medical Decision Making - Medical Decision Making Vitals are stable. Slight fever of 100.6 noted upon arrival Patient does have tenderness noted generalized lower abdomen. Workup was ordered for appendicitis. CBC showed minimal leukocytosis of 10.8. CMP unremarkable. Urinalysis unremarkable. Patient has a history of hysterectomy. CT abdomen and pelvis shows diverticulosis without acute diverticulitis. Mild fatty infiltration of the liver. History of cholecystectomy. Appendix is normal as visualized. Patient was given pain medication. At this time I do not see a surgical cause of patient's abdominal pain. She could have a mesenteric adenitis or viral gastroenteritis especially given nausea and associated mucousy stool. I discussed monitoring for worsening symptoms and returning if these occur. Patient will be sent home on Zofran. I discussed this case with attending Dr. Herrera who agrees with this assessment and treatment plan. - Lab Data Result diagrams: 05/04/20 11:51 05/04/20 11:51 Lab Results 05/04/20 05/04/20 05/04/20 Range/Units 11:51 11:51 11:51 WBC 10.8 H (3.8-10.6) k/uL RBC 4.84 (3.80-5.40) m/uL Hgb 13.2 (11.4-16.0) gm/dL Hct 41.4 (34.0-46.0) % MCV 85.5 (80.0-100.0) fL MCH 27.3 (25.0-35.0) pg MCHC 31.9 (31.0-37.0) g/dL RDW 14.3 (11.5-15.5) % Plt Count 379 (150-450) k/uL Neutrophils % 86 % Lymphocytes % 11 % Monocytes % 2 % Eosinophils % 1 % Basophils % 0 % Neutrophils # 9.2 H (1.3-7.7) k/uL Lymphocytes # 1.1 (1.0-4.8) k/uL Monocytes # 0.2 (0-1.0) k/uL Eosinophils # 0.1 (0-0.7) k/uL Basophils # 0.1 (0-0.2) k/uL Hypochromasia Slight Sodium 139 (137-145) mmol/L Potassium 4.3 (3.5-5.1) mmol/L Chloride 106 (98-107) mmol/L Carbon Dioxide 25 (22-30) mmol/L Anion Gap 8 mmol/L BUN 11 (7-17) mg/dL Creatinine 0.67 (0.52-1.04) mg/dL Est GFR (CKD-EPI)AfAm >90 (>60 ml/min/1.73 sqM) Est GFR (CKD-EPI)NonAf >90 (>60 ml/min/1.73 sqM) Glucose 108 H (74-99) mg/dL Plasma Lactic Acid Espinoza (0.7-2.0) mmol/L Calcium 9.2 (8.4-10.2) mg/dL Total Bilirubin 0.6 (0.2-1.3) mg/dL AST 25 (14-36) U/L ALT 27 (4-34) U/L Alkaline Phosphatase 97 (38-126) U/L Total Protein 7.2 (6.3-8.2) g/dL Albumin 4.3 (3.5-5.0) g/dL Amylase 44 (30-110) U/L Lipase 107 (23-300) U/L Urine Color Light Yellow Urine Appearance Clear (Clear) Urine pH 7.5 (5.0-8.0) Ur Specific [place] 1.010 (1.001-1.035) Urine Protein Negative (Negative) Urine Glucose (UA) Negative (Negative) Urine Ketones Negative (Negative) Urine Blood Negative (Negative) Urine Nitrite Negative (Negative) Urine Bilirubin Negative (Negative) Urine Urobilinogen <2.0 (<2.0) mg/dL Ur Leukocyte Esterase Negative (Negative) 05/04/20 Range/Units 11:51 WBC (3.8-10.6) k/uL RBC (3.80-5.40) m/uL Hgb (11.4-16.0) gm/dL Hct (34.0-46.0) % MCV (80.0-100.0) fL MCH (25.0-35.0) pg MCHC (31.0-37.0) g/dL RDW (11.5-15.5) % Plt Count (150-450) k/uL Neutrophils % % Lymphocytes % % Monocytes % % Eosinophils % % Basophils % % Neutrophils # (1.3-7.7) k/uL Lymphocytes # (1.0-4.8) k/uL Monocytes # (0-1.0) k/uL Eosinophils # (0-0.7) k/uL Basophils # (0-0.2) k/uL Hypochromasia Sodium (137-145) mmol/L Potassium (3.5-5.1) mmol/L Chloride (98-107) mmol/L Carbon Dioxide (22-30) mmol/L Anion Gap mmol/L BUN (7-17) mg/dL Creatinine (0.52-1.04) mg/dL Est GFR (CKD-EPI)AfAm (>60 ml/min/1.73 sqM) Est GFR (CKD-EPI)NonAf (>60 ml/min/1.73 sqM) Glucose (74-99) mg/dL Plasma Lactic Acid Espinoza 1.5 (0.7-2.0) mmol/L Calcium (8.4-10.2) mg/dL Total Bilirubin (0.2-1.3) mg/dL AST (14-36) U/L ALT (4-34) U/L Alkaline Phosphatase (38-126) U/L Total Protein (6.3-8.2) g/dL Albumin (3.5-5.0) g/dL Amylase (30-110) U/L Lipase (23-300) U/L Urine Color Urine Appearance (Clear) Urine pH (5.0-8.0) Ur Specific [place] (1.001-1.035) Urine Protein (Negative) Urine Glucose (UA) (Negative) Urine Ketones (Negative) Urine Blood (Negative) Urine Nitrite (Negative) Urine Bilirubin (Negative) Urine Urobilinogen (<2.0) mg/dL Ur Leukocyte Esterase (Negative) Disposition Clinical Impression: Abdominal pain Disposition: HOME SELF-CARE Condition: Good Instructions (If sedation given, give patient instructions): Abdominal Pain (ED) Additional Instructions: Please follow up with primary care in 1-2 days. If you have worsening symptoms return to the emergency room. Prescriptions: Ondansetron [Zofran ODT] 4 mg PO Q8HR PRN #15 tab PRN Reason: Nausea Is patient prescribed a controlled substance at d/c from ED?: No Referrals: Agustin Bradley MD [Primary Care Provider] - 1-2 days Time of Disposition: 13:51
[2020-05-04 12:16] LABS: Appearance,Urine Clear (Clear); Bilirubin,Urine Negative (Negative); Blood,Urine Negative (Negative); Color,Urine Light Yellow; Glucose,Urine (UA) Negative (Negative); Ketones,Urine Negative (Negative); Leukocyte Esterase,Urine Negative (Negative); Nitrite,Urine Negative (Negative); PH, Urine 7.5 (5.0-8.0); Protein,Urine Negative (Negative); Urobilinogen,Urine <2.0 mg/dL (<2.0)
[2020-05-04 12:21] LABS: ALT 27 U/L (4-34); AST 25 U/L (14-36); African American GFR (CKD) >90 (>60 ml/min/1.73 sqM); Albumin 4.3 g/dL (3.5-5.0); Alkaline Phosphatase 97 U/L (38-126); Amylase 44 U/L (30-110); Anion Gap 8 mmol/L; Blood Urea Nitrogen 11 mg/dL (7-17); Calcium 9.2 mg/dL (8.4-10.2); Carbon Dioxide 25 mmol/L (22-30); Chloride 106 mmol/L (98-107); Glucose 108 mg/dL (74-99); Non-African American GFR(CKD) >90 (>60 ml/min/1.73 sqM); Potassium 4.3 mmol/L (3.5-5.1); Sodium 139 mmol/L (137-145); Total Bilirubin 0.6 mg/dL (0.2-1.3); Total Protein 7.2 g/dL (6.3-8.2)
[2020-05-04] MEDS ORDERED: MORPHINE SULFATE 4 MG/ML SYRINGE IVP STA (13:16)
--- NOTE | 2020-05-04 13:17 | CT ---
EXAMINATION TYPE: CT abdomen pelvis w con DATE OF EXAM: 05/04/2020 COMPARISON: 05/28/2019 INDICATION: Midline to RLQ pelvic pain DLP: 1289.3 mGycm, Automated exposure control for dose reduction was used. CONTRAST: 100 mL of Isovue 300. Study performed without Oral Contrast TECHNIQUE: Axial images were obtained from above the diaphragm to the pubic rami in the axial plane a t 5 mm thick sections. Reconstructed images are reviewed on the computer in the coronal plane. FINDINGS: Limited CT sections are obtained the lung bases. The lung bases are clear. CT ABDOMEN: Liver: There is mild fatty infiltration to the liver. Spleen: Normal Pancreas: Normal Adrenal glands: The adrenal glands are normal. Gallbladder: This appears to be surgically absent. Kidneys: No masses are evident. No hydronephrosis is present. No cysts are present. Delayed images were obtained through the kidneys, which remain unremarkable. Aorta: Normal Inferior vena cava: Normal. CT PELVIS: Loops of bowel within the abdomen and pelvis are normal. There are some diverticular changes within t he sigmoid colon There are loops of bowel which are incompletely distended or lack oral contrast l imiting their evaluation. Appendix: Normal as visualized. Urinary bladder: Normal. Genitourinary structures: Uterus appears absent. Ovaries are not identified. Osseous structures: No suspicious lytic or sclerotic lesions. IMPRESSIONS: 1. Diverticulosis without acute diverticulitis. 2. Mild fatty infiltration of liver.
[2020-05-04 13:36] VITALS: BP 115/77; PULSE 111; TEMP 98.8
== END 2020-05-04 14:01 | disposition home or self-care (01) ==
LOC: EC 11:23
DX: R10.9 Unspecified abdominal pain (principal); R11.0 Nausea; D72.829 Elevated white blood cell count, unspecified; K76.0 Fatty (change of) liver, not elsewhere classified; K21.9 Gastro-esophageal reflux disease without esophagitis; F41.9 Anxiety disorder, unspecified; F32.9 Major depressive disorder, single episode, unspecified; Z90.710 Acquired absence of both cervix and uterus; Z90.49 Acquired absence of other specified parts of digestive tract; Z79.899 Other long term (current) drug therapy; Z88.1 Allergy status to other antibiotic agents; Z88.2 Allergy status to sulfonamides; Z88.5 Allergy status to narcotic agent; Z88.8 Allergy status to other drugs, medicaments and biological substances
CPT/HCPCS: 36415; 80053; 82150; 83605; 83690; 85025; 81003; 74177; 99284; 96374; 96375; 96361 ×2; J2060; J2270; Q9967

== ENCOUNTER 2020-05-05 13:33 | Inpatient (IN) | payer BC, OTHER ==
[2020-05-05] MEDS ORDERED: KETOROLAC 15 MG/ML 1 ML VIAL IVP STA (14:39)
[2020-05-05] MEDS ORDERED: SODIUM CHLORIDE 0.9% 500 ML 500 ML IV STA (14:39)
[2020-05-05] MEDS ORDERED: ONDANSETRON 4 MG/2 ML VIAL IVP STA (14:56)
[2020-05-05 14:58] LABS: Basophils # (A) 0.1 k/uL (0-0.2); Basophils % (A) 1 %; Eosinophils # (A) 0.1 k/uL (0-0.7); Eosinophils % (A) 1 %; HCT 42.1 % (34.0-46.0); HGB 13.3 gm/dL (11.4-16.0); Lymphocytes # (A) 1.7 k/uL (1.0-4.8); Lymphocytes % (A) 21 %; MCH 26.9 pg (25.0-35.0); MCHC 31.5 g/dL (31.0-37.0); MCV 85.3 fL (80.0-100.0); Mean Platelet Volume 7.6; Monocytes # (A) 0.3 k/uL (0-1.0); Monocytes % (A) 4 %; Neutrophils # (A) 5.9 k/uL (1.3-7.7); Neutrophils % (A) 73 %; Platelet Count 342 k/uL (150-450); RBC 4.93 m/uL (3.80-5.40); RDW 14.1 % (11.5-15.5); WBC 8.2 k/uL (3.8-10.6)
[2020-05-05 15:00] LABS: Appearance,Urine Clear (Clear); Bilirubin,Urine Negative (Negative); Blood,Urine Negative (Negative); Color,Urine Yellow; Glucose,Urine (UA) Negative (Negative); Ketones,Urine Negative (Negative); Leukocyte Esterase,Urine Negative (Negative); Nitrite,Urine Negative (Negative); PH, Urine 7.5 (5.0-8.0); Protein,Urine Negative (Negative); Urobilinogen,Urine <2.0 mg/dL (<2.0)
[2020-05-05 15:12] LABS: ALT 28 U/L (4-34); AST 30 U/L (14-36); African American GFR (CKD) >90 (>60 ml/min/1.73 sqM); Alkaline Phosphatase 87 U/L (38-126); Anion Gap 5 mmol/L; Blood Urea Nitrogen 9 mg/dL (7-17); Calcium 9.2 mg/dL (8.4-10.2); Carbon Dioxide 27 mmol/L (22-30); Chloride 107 mmol/L (98-107); Glucose 101 mg/dL (74-99); Non-African American GFR(CKD) >90 (>60 ml/min/1.73 sqM); Potassium 4.3 mmol/L (3.5-5.1); Sodium 139 mmol/L (137-145); Total Bilirubin 0.7 mg/dL (0.2-1.3); Total Protein 6.8 g/dL (6.3-8.2)
[2020-05-05] MEDS ORDERED: MORPHINE SULFATE 4 MG/ML SYRINGE IV STA (15:37)
--- NOTE | 2020-05-05 15:42 | ED ---
General Adult HPI - General Chief complaint: Abdominal Pain Stated complaint: Revisit - Abd Pain Time Seen by Provider: 05/05/20 14:08 Source: patient, RN notes reviewed, old records reviewed Mode of arrival: ambulatory Limitations: no limitations - History of Present Illness Initial comments: 29-year-old female patient with past medical history significant for cholecystectomy hysterectomy presents to ED for evaluation of abdominal pain. Patient reports that the pain began yesterday and is in her suprapubic and right lower quadrant region. Patient reports that she is having a little bit of diarrhea with this as well. Patient was seen in this emergency department yesterday where she did have laboratory investigations drawn as well as a CT of the abdomen and pelvis which was negative for any acute abdominal process. Patient reports that her pain has not improved since it is a sharp discomfort. Denies any other complaints. Systemic: Pt denies fatigue, fever/chills, rash. Pt denies weakness, night sweats, weight loss. Neuro: Pt denies headache, visual disturbances, syncope or pre-syncope. HEENT: Pt denies ocular discharge or irritation, otalgia, rhinorrhea, pharyngitis or notable lymphadenopathy. Cardiopulmonary: Pt denies chest pain, SOB, heart palpitations, dyspnea on exertion. Abdominal/GI: Pt denies v/d. : Pt denies dysuria, burning w/ urination, frequency/urgency. Denies new onset urinary or bowel incontinence. MSK: Pt denies myalgia, loss of strength or function in extremities. Neuro: Pt denies new onset weakness, paresthesias. - Related Data Home Medications Medication Instructions Recorded Confirmed Omeprazole [PriLOSEC] 20 mg PO HS 07/22/19 05/05/20 buPROPion [Wellbutrin] 75 mg PO BID 07/22/19 05/05/20 lamoTRIgine [LaMICtal] 50 mg PO QAM 07/22/19 05/05/20 clonazePAM [KlonoPIN] 0.5 mg PO DAILY PRN 05/05/20 05/05/20 Previous Rx's Medication Instructions Recorded Ondansetron [Zofran ODT] 4 mg PO Q8HR PRN #15 tab 05/04/20 Allergies Allergy/AdvReac Type Severity Reaction Status Date / Time ciprofloxacin [From Cipro] Allergy Itching Verified 05/05/20 15:02 codeine Allergy Itching Verified 05/05/20 15:02 nitrofurantoin Allergy Itching Verified 05/05/20 15:02 [From Macrobid] prednisone Allergy "marcelo legs Verified 05/05/20 15:02 go numb" Sulfa (Sulfonamide Allergy Itching Verified 05/05/20 15:02 Antibiotics) sulfamethoxazole Allergy Itching Verified 05/05/20 15:02 [From Bactrim] trimethoprim [From Bactrim] Allergy Itching Verified 05/05/20 15:02 phenazopyridine AdvReac Abdominal Verified 05/05/20 15:02 [From Pyridium] Pain Review of Systems ROS Statement: Those systems with pertinent positive or pertinent negative responses have been documented in the HPI. ROS Other: All systems not noted in ROS Statement are negative. Past Medical History Past Medical History: GERD/Reflux Additional Past Medical History / Comment(s): abdominal pain and nausea,IBS,states "very sensitive to pain and tolerance" History of Any Multi-Drug Resistant Organisms: None Reported Past Surgical History: Cholecystectomy, Hysterectomy Past Anesthesia/Blood Transfusion Reactions: Postoperative Nausea & Vomiting (PONV) Additional Past Anesthesia/Blood Transfusion Reaction / Comment(s): no hx blood transfusion Past Psychological History: Anxiety, Depression Smoking Status: Never smoker Past Alcohol Use History: None Reported Past Drug Use History: None Reported - Past Family History Mother Family Medical History: No Reported History General Exam - General Exam Comments Initial Comments: Constitutional: NAD, AOX3, Pt has pleasant affect. HEENT: NC/AT, trachea midline, neck supple, no lymphadenopathy. External ears appear normal, without discharge. Mucous membranes moist. Eyes PERRLA, EOM intact. There is no scleral icterus. No pallor noted. Cardiopulmonary: RRR, no murmurs, rubs or gallops, no JVD noted. Lungs CTAB in anterior and posterior shoemaker. No peripheral edema. Abdominal exam: Abdomen soft and non-distended. Abdomen tender to palpation RLQ, suprapubic region. Bowel sounds active in LLQ. No hepatosplenomegaly. No ecchymosis Neuro: CN II-XII grossly intact. No nuchal rigidity. No raccon eyes, no poole sign, no hemotympanum. No cervical spinal tenderness. MSK: No posterior calf tenderness bilaterally, homans sign negative bilaterally. Posterior tibialis and radial pulse +2 bilaterally. Sensation intact in upper and lower extremities. Full active ROM in upper and lower extremities, 5/5 stregnth. Limitations: no limitations Course Vital Signs 05/05/20 05/05/20 13:36 17:24 Temperature 98.3 F 98.2 F Pulse Rate 102 H 90 Respiratory 18 18 Rate Blood Pressure 126/78 131/67 O2 Sat by Pulse 98 100 Oximetry Medical Decision Making - Medical Decision Making 29-year-old female patient was seen for evaluation of abdominal pain. Patient was has been going for last 2 days. Patient vital signs are stable, afebrile. Lives investigations and display any significant abnormalities. CT abdomen and pelvis was dictated as no acute abdomen pelvis yesterday. shared decision making with patient, she would like to defer CT due to radiation burden. Ultrasounds were obtained which were not impressive however the radiologist indicated the ultrasound did also compare from the Pain yesterday and believes that there may be some signs of appendicitis and the CAT scan yesterday. Patient did have a fever emergency department yesterday no documented fevers today. Patient initiated on IV antibiotics, will be admitted to Dr. Meng who accepts case, case discussed with Dr. Bryant. - Lab Data Result diagrams: 05/05/20 14:45 05/05/20 14:45 Lab Results 05/05/20 05/05/20 05/05/20 Range/Units 14:45 14:45 14:45 WBC 8.2 (3.8-10.6) k/uL RBC 4.93 (3.80-5.40) m/uL Hgb 13.3 (11.4-16.0) gm/dL Hct 42.1 (34.0-46.0) % MCV 85.3 (80.0-100.0) fL MCH 26.9 (25.0-35.0) pg MCHC 31.5 (31.0-37.0) g/dL RDW 14.1 (11.5-15.5) % Plt Count 342 (150-450) k/uL Neutrophils % 73 % Lymphocytes % 21 % Monocytes % 4 % Eosinophils % 1 % Basophils % 1 % Neutrophils # 5.9 (1.3-7.7) k/uL Lymphocytes # 1.7 (1.0-4.8) k/uL Monocytes # 0.3 (0-1.0) k/uL Eosinophils # 0.1 (0-0.7) k/uL Basophils # 0.1 (0-0.2) k/uL Sodium 139 (137-145) mmol/L Potassium 4.3 (3.5-5.1) mmol/L Chloride 107 (98-107) mmol/L Carbon Dioxide 27 (22-30) mmol/L Anion Gap 5 mmol/L BUN 9 (7-17) mg/dL Creatinine 0.71 (0.52-1.04) mg/dL Est GFR (CKD-EPI)AfAm >90 (>60 ml/min/1.73 sqM) Est GFR (CKD-EPI)NonAf >90 (>60 ml/min/1.73 sqM) Glucose 101 H (74-99) mg/dL Plasma Lactic Acid Espinoza (0.7-2.0) mmol/L Calcium 9.2 (8.4-10.2) mg/dL Total Bilirubin 0.7 (0.2-1.3) mg/dL AST 30 (14-36) U/L ALT 28 (4-34) U/L Alkaline Phosphatase 87 (38-126) U/L Total Protein 6.8 (6.3-8.2) g/dL Albumin 4.0 (3.5-5.0) g/dL Lipase 110 (23-300) U/L Urine Color Yellow Urine Appearance Clear (Clear) Urine pH 7.5 (5.0-8.0) Ur Specific Excel 1.010 (1.001-1.035) Urine Protein Negative (Negative) Urine Glucose (UA) Negative (Negative) Urine Ketones Negative (Negative) Urine Blood Negative (Negative) Urine Nitrite Negative (Negative) Urine Bilirubin Negative (Negative) Urine Urobilinogen <2.0 (<2.0) mg/dL Ur Leukocyte Esterase Negative (Negative) 05/05/20 Range/Units 14:45 WBC (3.8-10.6) k/uL RBC (3.80-5.40) m/uL Hgb (11.4-16.0) gm/dL Hct (34.0-46.0) % MCV (80.0-100.0) fL MCH (25.0-35.0) pg MCHC (31.0-37.0) g/dL RDW (11.5-15.5) % Plt Count (150-450) k/uL Neutrophils % % Lymphocytes % % Monocytes % % Eosinophils % % Basophils % % Neutrophils # (1.3-7.7) k/uL Lymphocytes # (1.0-4.8) k/uL Monocytes # (0-1.0) k/uL Eosinophils # (0-0.7) k/uL Basophils # (0-0.2) k/uL Sodium (137-145) mmol/L Potassium (3.5-5.1) mmol/L Chloride (98-107) mmol/L Carbon Dioxide (22-30) mmol/L Anion Gap mmol/L BUN (7-17) mg/dL Creatinine (0.52-1.04) mg/dL Est GFR (CKD-EPI)AfAm (>60 ml/min/1.73 sqM) Est GFR (CKD-EPI)NonAf (>60 ml/min/1.73 sqM) Glucose (74-99) mg/dL Plasma Lactic Acid Espinoza 1.1 (0.7-2.0) mmol/L Calcium (8.4-10.2) mg/dL Total Bilirubin (0.2-1.3) mg/dL AST (14-36) U/L ALT (4-34) U/L Alkaline Phosphatase (38-126) U/L Total Protein (6.3-8.2) g/dL Albumin (3.5-5.0) g/dL Lipase (23-300) U/L Urine Color Urine Appearance (Clear) Urine pH (5.0-8.0) Ur Specific Excel (1.001-1.035) Urine Protein (Negative) Urine Glucose (UA) (Negative) Urine Ketones (Negative) Urine Blood (Negative) Urine Nitrite (Negative) Urine Bilirubin (Negative) Urine Urobilinogen (<2.0) mg/dL Ur Leukocyte Esterase (Negative) Disposition Clinical Impression: Appendicitis Disposition: ADMITTED IP TO THIS [facility] Condition: Serious Is patient prescribed a controlled substance at d/c from ED?: No Referrals: Agustin Bradley MD [Primary Care Provider] - 1-2 days
--- NOTE | 2020-05-05 16:39 | US ---
EXAMINATION TYPE: US abdomen APPY DATE OF EXAM: 05/05/2020 COMPARISON: CT dated 1 day prior CLINICAL HISTORY: pain. RLQ pain APPENDIX AP Diameter (normal < 6mm): 5mm mm Measured outer wall to outer wall. Nonvisualization of the appendix. On review of CT scan the base of the appendix appears somewhat thickened on CT IMPRESSION: Correlate for appendicitis. Question mild inflammatory change at the base of the appendi x, axial image [address] scan from one day prior.
--- NOTE | 2020-05-05 16:44 | US ---
EXAMINATION TYPE: US transvaginal DATE OF EXAM: 05/05/2020 COMPARISON: ct & us CLINICAL HISTORY: pain. RLQ pain, uterus removed TECHNIQUE: Transvaginal (TV). Transvaginal sonographic images of the pelvis were acquired. 1. Uterus: Surgically absent 2. Endometrium: Surgically absent 3. Right Ovary: Obscured by overlying bowel gas 4. Left Ovary: Obscured by overlying bowel gas 5. Bilateral Adnexa: wnl 6. Posterior cul-de-sac: wnl Unable to visualize ovaries due to many bowel loops and peristalsing bowel throughout pelvis IMPRESSION: There is hysterectomy. No pelvic solid or cystic mass identified. No free fluid.
[2020-05-05] MEDS ORDERED: PIPERACILLIN-TAZOBACTAM 3.375 GM in SODIUM CHLORIDE 0.9% 100 ML IVPB STA (17:04)
[2020-05-05] MEDS ORDERED: LORazepam 2 MG/ML INJ IV STA (17:05)
[2020-05-05] MEDS ORDERED: NALOXONE 0.4 MG/ML 1 ML VIAL IV PRN (17:06)
[2020-05-05] MEDS: SODIUM CHLORIDE 0.9% 1,000 ML IV SCH (17:20)
[2020-05-05] MEDS ORDERED: ONDANSETRON 4 MG/2 ML VIAL IVP PRN (19:25)
[2020-05-05] MEDS: PANTOPRAZOLE 40 MG TABLET PO SCH (21:45)
[2020-05-05] MEDS: buPROPion 75 MG TAB PO SCH (21:45)
[2020-05-05] MEDS: LORazepam 2 MG/ML INJ IV PRN (21:46)
[2020-05-05] MEDS: MORPHINE SULFATE 4 MG/ML SYRINGE IV PRN (22:26)
[2020-05-06] MEDS: PIPERACILLIN-TAZOBACTAM 3.375 GM in SODIUM CHLORIDE 0.9% 100 ML IVPB SCH ×3 (00:11→17:38)
[2020-05-06] MEDS: IBUPROFEN 400 MG TAB PO PRN (03:16)
[2020-05-06] MEDS: SODIUM CHLORIDE 0.9% 1,000 ML IV SCH ×2 (03:17→17:37)
[2020-05-06] MEDS: MORPHINE SULFATE 4 MG/ML SYRINGE IV PRN (04:57)
[2020-05-06 08:12] LABS: Basophils % (A) 1 %; Eosinophils # (A) 0.1 k/uL (0-0.7); Eosinophils % (A) 2 %; HGB 11.6 gm/dL (11.4-16.0); Hypochromasia Moderate; Lymphocytes # (A) 1.5 k/uL (1.0-4.8); Lymphocytes % (A) 24 %; MCH 27.7 pg (25.0-35.0); MCHC 31.4 g/dL (31.0-37.0); MCV 88.4 fL (80.0-100.0); Monocytes # (A) 0.3 k/uL (0-1.0); Monocytes % (A) 4 %; Neutrophils # (A) 4.3 k/uL (1.3-7.7); Neutrophils % (A) 68 %; Platelet Count 284 k/uL (150-450); RBC 4.19 m/uL (3.80-5.40); RDW 14.4 % (11.5-15.5); WBC 6.3 k/uL (3.8-10.6)
[2020-05-06] MEDS ORDERED: HYDROmorphone 1 MG/ML 1 ML SYRINGE IVP PRN (08:20)
[2020-05-06] MEDS: ONDANSETRON 4 MG/2 ML VIAL IVP PRN ×2 (08:29→14:01)
[2020-05-06 08:31] LABS: ALT 24 U/L (4-34); African American GFR (CKD) >90 (>60 ml/min/1.73 sqM); Albumin 3.2 g/dL (3.5-5.0); Anion Gap 3 mmol/L; Blood Urea Nitrogen 9 mg/dL (7-17); Calcium 8.1 mg/dL (8.4-10.2); Carbon Dioxide 21 mmol/L (22-30); Chloride 113 mmol/L (98-107); Glucose 90 mg/dL (74-99); Non-African American GFR(CKD) >90 (>60 ml/min/1.73 sqM); Potassium 4.3 mmol/L (3.5-5.1); Sodium 137 mmol/L (137-145); Total Bilirubin 0.7 mg/dL (0.2-1.3); Total Protein 5.8 g/dL (6.3-8.2)
[2020-05-06 08:32] LABS: AST 31 U/L (14-36); Alkaline Phosphatase 57 U/L (38-126)
[2020-05-06] MEDS: SCOPOLAMINE 1.5MG/72HR PATCH TRANSDERM SCH (09:03)
--- NOTE | 2020-05-06 09:54 | P.GSHP ---
History of Present Illness H&P Date: 05/06/20 Chief Complaint: Right lower quadrant pain This a 21-year-old female who was admitted through the emergency complaints right lower quadrant pain. Patient's states that she has had pain for last 72 hours. Her initial CAT scan was read as normal. Her ultrasound appears normal as well. Re-read of her CAT scan shows possible mild thickening of the base the appendix. Patient denies any significant nausea or vomiting. Or anorexia. Past Medical History Past Medical History: GERD/Reflux Additional Past Medical History / Comment(s): abdominal pain and nausea,IBS- cholecysectomy no more IBS,states "very sensitive to pain and tolerance" History of Any Multi-Drug Resistant Organisms: None Reported Past Surgical History: Cholecystectomy, Hysterectomy Past Anesthesia/Blood Transfusion Reactions: Postoperative Nausea & Vomiting (PONV) Additional Past Anesthesia/Blood Transfusion Reaction / Comment(s): no hx blood transfusion Past Psychological History: Anxiety, Depression Smoking Status: Never smoker Past Alcohol Use History: None Reported Past Drug Use History: None Reported - Past Family History Mother Family Medical History: No Reported History Medications and Allergies Home Medications Medication Instructions Recorded Confirmed Type Omeprazole [PriLOSEC] 20 mg PO HS 07/22/19 05/05/20 History buPROPion [Wellbutrin] 75 mg PO BID 07/22/19 05/05/20 History lamoTRIgine [LaMICtal] 50 mg PO QAM 07/22/19 05/05/20 History Ondansetron [Zofran ODT] 4 mg PO Q8HR PRN #15 tab 05/04/20 05/05/20 Rx clonazePAM [KlonoPIN] 0.5 mg PO DAILY PRN 05/05/20 05/05/20 History Allergies Allergy/AdvReac Type Severity Reaction Status Date / Time ciprofloxacin [From Cipro] Allergy Itching Verified 05/05/20 20:22 codeine Allergy Itching Verified 05/05/20 20:22 nitrofurantoin Allergy Itching Verified 05/05/20 20:22 [From Macrobid] prednisone Allergy "marcelo legs Verified 05/05/20 20:22 go numb" Sulfa (Sulfonamide Allergy Itching Verified 05/05/20 20:22 Antibiotics) sulfamethoxazole Allergy Itching Verified 05/05/20 20:22 [From Bactrim] trimethoprim [From Bactrim] Allergy Itching Verified 05/05/20 20:22 phenazopyridine AdvReac Abdominal Verified 05/05/20 20:22 [From Pyridium] Pain Surgical - Exam Vital Signs Temp Pulse Resp BP Pulse Ox 98.3 F 102 H 18 126/78 98 05/05/20 13:36 05/05/20 13:36 05/05/20 13:36 05/05/20 13:36 05/05/20 13:36 - General well developed, well nourished, no distress - Eyes PERRL - ENT normal pinna - Neck no masses - Respiratory normal expansion - Abdomen Mild right lower quadrant pain. There is no rebound or guarding. Abdomen: soft Results - Labs 05/06/20 08:00 05/06/20 08:00 Abnormal Lab Results - Last 24 Hours (Table) 05/05/20 05/06/20 Range/Units 14:45 08:00 Chloride 113 H (98-107) mmol/L Carbon Dioxide 21 L (22-30) mmol/L Glucose 101 H (74-99) mg/dL Calcium 8.1 L (8.4-10.2) mg/dL Total Protein 5.8 L (6.3-8.2) g/dL Albumin 3.2 L (3.5-5.0) g/dL Diabetes panel 05/05/20 05/06/20 Range/Units 14:45 08:00 Sodium 139 137 (137-145) mmol/L Potassium 4.3 4.3 (3.5-5.1) mmol/L Chloride 107 113 H (98-107) mmol/L Carbon Dioxide 27 21 L (22-30) mmol/L BUN 9 9 (7-17) mg/dL Creatinine 0.71 0.73 (0.52-1.04) mg/dL Glucose 101 H 90 (74-99) mg/dL Calcium 9.2 8.1 L (8.4-10.2) mg/dL AST 30 31 (14-36) U/L ALT 28 24 (4-34) U/L Alkaline Phosphatase 87 57 (38-126) U/L Total Protein 6.8 5.8 L (6.3-8.2) g/dL Albumin 4.0 3.2 L (3.5-5.0) g/dL Calcium panel 05/05/20 05/06/20 Range/Units 14:45 08:00 Calcium 9.2 8.1 L (8.4-10.2) mg/dL Albumin 4.0 3.2 L (3.5-5.0) g/dL Pituitary panel 05/05/20 05/06/20 Range/Units 14:45 08:00 Sodium 139 137 (137-145) mmol/L Potassium 4.3 4.3 (3.5-5.1) mmol/L Chloride 107 113 H (98-107) mmol/L Carbon Dioxide 27 21 L (22-30) mmol/L BUN 9 9 (7-17) mg/dL Creatinine 0.71 0.73 (0.52-1.04) mg/dL Glucose 101 H 90 (74-99) mg/dL Calcium 9.2 8.1 L (8.4-10.2) mg/dL Adrenal panel 05/05/20 05/06/20 Range/Units 14:45 08:00 Sodium 139 137 (137-145) mmol/L Potassium 4.3 4.3 (3.5-5.1) mmol/L Chloride 107 113 H (98-107) mmol/L Carbon Dioxide 27 21 L (22-30) mmol/L BUN 9 9 (7-17) mg/dL Creatinine 0.71 0.73 (0.52-1.04) mg/dL Glucose 101 H 90 (74-99) mg/dL Calcium 9.2 8.1 L (8.4-10.2) mg/dL Total Bilirubin 0.7 0.7 (0.2-1.3) mg/dL AST 30 31 (14-36) U/L ALT 28 24 (4-34) U/L Alkaline Phosphatase 87 57 (38-126) U/L Total Protein 6.8 5.8 L (6.3-8.2) g/dL Albumin 4.0 3.2 L (3.5-5.0) g/dL Assessment and Plan Assessment: Right lower quadrant pain. Possible early simple acute appendicitis.. Patient be observed. She'll remain on IV antibiotics.
[2020-05-06] MEDS ORDERED: METOCLOPRAMIDE 5 MG/ML 2 ML VIAL IVP STA (10:43)
[2020-05-06] MEDS ORDERED: ACETAMINOPHEN IV (For NPO) 1,000 MG in EMPTY BAG 1 BAG IVPB STA (10:43)
[2020-05-06] MEDS: lamoTRIgine 25 MG TAB PO SCH (16:59)
[2020-05-06] MEDS: buPROPion 75 MG TAB PO SCH ×2 (16:59→20:53)
[2020-05-06] MEDS: PANTOPRAZOLE 40 MG TABLET PO SCH (20:53)
[2020-05-07] MEDS: PIPERACILLIN-TAZOBACTAM 3.375 GM in SODIUM CHLORIDE 0.9% 100 ML IVPB SCH ×4 (00:11→23:48)
[2020-05-07] MEDS: LORazepam 2 MG/ML INJ IV PRN ×3 (01:38→18:28)
[2020-05-07] MEDS ORDERED: ACETAMINOPHEN IV (For NPO) 1,000 MG in EMPTY BAG 1 BAG IVPB ONE (08:34)
[2020-05-07] MEDS: IBUPROFEN 400 MG TAB PO PRN (08:37)
[2020-05-07] MEDS ORDERED: KETOROLAC 15 MG/ML 1 ML VIAL IVP STA (08:43)
--- NOTE | 2020-05-07 09:52 | P.PN ---
Progress Note - Text Progress Note Date: 05/07/20 The patient was feeling well yesterday. She actually requests to be discharged home. However last night she developed increased pain again. On exam her lesser stable. Abdomen soft. There is some mild tenderness in the right lower quadrant. Patient will be observed further. If she still has pain tomorrow she'll undergo diagnostic laparoscopy.
[2020-05-07] MEDS: ONDANSETRON 4 MG/2 ML VIAL IVP PRN ×2 (12:27→18:09)
[2020-05-07] MEDS: MORPHINE SULFATE 4 MG/ML SYRINGE IV PRN (12:30)
[2020-05-07] MEDS: buPROPion 75 MG TAB PO SCH ×2 (14:15→20:46)
[2020-05-07] MEDS: lamoTRIgine 25 MG TAB PO SCH (14:15)
[2020-05-07] MEDS: SODIUM CHLORIDE 0.9% 1,000 ML IV SCH ×3 (14:18→23:49)
[2020-05-07] MEDS: KETOROLAC 15 MG/ML 1 ML VIAL IVP SCH ×2 (15:00→18:13)
[2020-05-07] MEDS ORDERED: WATER FOR INJECTION, STERILE 10 ML IV ONE (18:21)
[2020-05-07] MEDS: PANTOPRAZOLE 40 MG TABLET PO SCH (20:46)
[2020-05-08] MEDS: KETOROLAC 15 MG/ML 1 ML VIAL IVP SCH ×4 (02:32→23:43)
[2020-05-08] MEDS: LORazepam 2 MG/ML INJ IV PRN ×3 (05:08→14:05)
[2020-05-08] MEDS: buPROPion 75 MG TAB PO SCH ×2 (08:13→21:39)
[2020-05-08] MEDS: lamoTRIgine 25 MG TAB PO SCH (08:13)
[2020-05-08] MEDS: PIPERACILLIN-TAZOBACTAM 3.375 GM in SODIUM CHLORIDE 0.9% 100 ML IVPB SCH ×4 (08:13→23:43)
[2020-05-08] MEDS: SODIUM CHLORIDE 0.9% 1,000 ML IV SCH ×2 (08:14→18:45)
[2020-05-08] MEDS ORDERED: WATER FOR INJECTION, STERILE 10 ML IV ONE ×2 (09:05→14:03)
[2020-05-08] MEDS: ONDANSETRON 4 MG/2 ML VIAL IVP PRN ×2 (14:08→18:37)
[2020-05-08] MEDS ORDERED: clonazePAM 0.5 MG TAB PO PRN (14:26)
[2020-05-08] MEDS ORDERED: IV FLUID CONTINUATION 1,000 ML IV ONE (15:36)
[2020-05-08] MEDS ORDERED: SCOPOLAMINE 1.5MG/72HR PATCH TRANSDERM ONE (15:37)
[2020-05-08] MEDS ORDERED: KETOROLAC 15 MG/ML 1 ML VIAL ONE (16:18)
[2020-05-08] MEDS ORDERED: MIDAZOLAM 2 MG/2 ML VIAL ONE (16:18)
[2020-05-08] MEDS ORDERED: PROPOFOL 10 MG/ML 20 ML VIAL IV ONE (16:18)
[2020-05-08] MEDS ORDERED: fentaNYL (PF) 50 MCG/ML 2 ML AMP ONE (16:18)
[2020-05-08] MEDS ORDERED: LIDOCAINE 1% INJ 10MG/ML (20 ML MDV) ONE (16:18)
[2020-05-08] MEDS ORDERED: BUPIVACAINE (PF) 0.25% 30 ML VIAL SQ ONE (16:35)
--- NOTE | 2020-05-08 16:54 | P.OP ---
Date of Procedure: 05/08/20 Preoperative Diagnosis: Acute appendicitis Postoperative Diagnosis: Defer to pathology Procedure(s) Performed: Laparoscopic appendectomy Anesthesia: ELISABETH Surgeon: Ashish Hanson Estimated Blood Loss (ml): 5 Pathology: other (Appendix) Condition: stable Disposition: PACU Description of Procedure: The patient's placed on the operating table in the supine position. The patient received general anesthesia. The abdomen was prepped and draped in the usual sterile fashion. The skin was anesthetized 1% local Xylocaine at the trocar sites. Using an 11 blade the skin was incised at the umbilicus. The umbilicus was grasped with a Ronks clamp and then a Veress needle was placed into the peritoneal cavity. Position of the Veress needle was confirmed with positive drop test. After adequate insufflation a 5 mm trocar was placed into the peritoneal cavity. The abdomen was further insufflated. And then the laparoscope was placed in the peritoneal cavity. Next a 5 mm trocar was placed in the midline suprapubic position. And then a 10 mm trocar was placed in the midline epigastric position. The patient was rotated with the right side up and in Trendelenburg. The appendix was visualized. The appendix did not appear to be inflamed. The appendix was grasped and then using the Harmonic scissors the mesoappendix was divided. A PDS Endoloop was then placed around the base of the appendix. And then the appendix was divided using Harmonic scissors. The appendix was placed into an Endo Catch and brought out through the 10 mm trocar site. The abdomen was irrigated. There is no bleeding seen. The trochars withdrawn. The skin was closed interrupted 3-0 Monocryl suture. Dermabond dressing was applied. Patient was sent to recovery room in stable condition.
[2020-05-08] MEDS ORDERED: HYDROmorphone 0.5 MG/0.5 ML SYRINGE IVP ONE ×2 (17:36→17:49)
[2020-05-08] MEDS ORDERED: SODIUM CHLORIDE 0.9% 1,000 ML IV ONE (18:09)
[2020-05-08] MEDS: METOCLOPRAMIDE 5 MG/ML 2 ML VIAL IVP PRN (20:00)
[2020-05-08] MEDS: PANTOPRAZOLE 40 MG TABLET PO SCH (21:39)
[2020-05-08] MEDS: MORPHINE SULFATE 4 MG/ML SYRINGE IV PRN (21:41)
[2020-05-09] MEDS: ACETAMINOPHEN TAB 325 MG TAB PO PRN ×2 (02:19→11:28)
[2020-05-09] MEDS: ONDANSETRON 4 MG/2 ML VIAL IVP PRN ×2 (05:31→12:20)
[2020-05-09] MEDS: MORPHINE SULFATE 4 MG/ML SYRINGE IV PRN (05:31)
[2020-05-09] MEDS: SODIUM CHLORIDE 0.9% 1,000 ML IV SCH (06:17)
[2020-05-09] MEDS: KETOROLAC 15 MG/ML 1 ML VIAL IVP SCH ×2 (06:22→12:20)
[2020-05-09] MEDS: buPROPion 75 MG TAB PO SCH (08:32)
[2020-05-09] MEDS: lamoTRIgine 25 MG TAB PO SCH (08:33)
[2020-05-09] MEDS: METOCLOPRAMIDE 5 MG/ML 2 ML VIAL IVP PRN (08:35)
[2020-05-09] MEDS: PIPERACILLIN-TAZOBACTAM 3.375 GM in SODIUM CHLORIDE 0.9% 100 ML IVPB SCH (08:38)
[2020-05-09 09:12] VITALS: RESP 16
[2020-05-09] MEDS: SCOPOLAMINE 1.5MG/72HR PATCH TRANSDERM SCH (09:20)
--- NOTE | 2020-05-09 09:52 | P.DS ---
Providers Date of admission: 05/08/20 13:07 Expected date of discharge: 05/09/20 Attending physician: Ashish Yadav Primary care physician: Agustin Bradley [facility] Course: Discharge diagnosis 1. Acute appendicitis status post laparoscopic appendectomy Hospital course This a 29-year-old female who was admitted through the emergency complaints right lower quadrant pain. Her initial CAT scan was read as normal. Her ultrasound appears normal as well. Re-read of her CAT scan shows possible mild thickening of the base the appendix. Patient did continue to report right lower quadrant pain. She therefore underwent a laparoscopic appendectomy yesterday with Dr. yadav. Patient tolerated surgery well. She has been up and ambulating. Pain is controlled. She denies a nausea vomiting. She is tolerating diet. She is afebrile. Patient is stable for discharge. Physician Information Systems Manager note has been reviewed by physician. Signing provider agrees with the documented findings, assessment, and plan of care. Patient Condition at Discharge: Stable Plan - Discharge Summary Discharge Rx Participant: Yes New Discharge Prescriptions: New Docusate [Colace] 100 mg PO BID #30 capsule Hydrocodone/Acetaminophen [[place] 5-325] 1 tab PO Q6HR PRN 3 Days #12 tab PRN Reason: Pain Continue lamoTRIgine [LaMICtal] 50 mg PO QAM buPROPion [Wellbutrin] 75 mg PO BID Omeprazole [PriLOSEC] 20 mg PO HS Ondansetron [Zofran ODT] 4 mg PO Q8HR PRN #15 tab PRN Reason: Nausea clonazePAM [KlonoPIN] 0.5 mg PO DAILY PRN PRN Reason: Anxiety Discharge Medication List Omeprazole [PriLOSEC] 20 mg PO HS 07/22/19 [History] buPROPion [Wellbutrin] 75 mg PO BID 07/22/19 [History] lamoTRIgine [LaMICtal] 50 mg PO QAM 07/22/19 [History] Ondansetron [Zofran ODT] 4 mg PO Q8HR PRN #15 tab 05/04/20 [Rx] clonazePAM [KlonoPIN] 0.5 mg PO DAILY PRN 05/05/20 [History] Docusate [Colace] 100 mg PO BID #30 capsule 05/09/20 [Rx] Hydrocodone/Acetaminophen [[place] 5-325] 1 tab PO Q6HR PRN 3 Days #12 tab 05/09/20 [Rx] Follow up Appointment(s)/Referral(s): Agustin Bradley MD [Primary Care Provider] - 1-2 days Ashish Yadav MD [STAFF PHYSICIAN] - 1 Week Activity/Diet/Wound Care/Special Instructions: No driving while taking [place] No lifting over 10 pounds You may shower. No soaking or tub baths for 2 weeks Very light activity until you are reevaluated at your follow up appointment with your surgeon Discharge Disposition: HOME SELF-CARE
[2020-05-09] MEDS ORDERED: HYDROcodone/APAP 5-325MG 1 EACH TAB PO PRN (11:20)
[2020-05-09 12:50] VITALS: BP 98/67; PULSE 63; TEMP 98.5
--- NOTE | 2020-05-11 00:39 | CDI ---
Documentation Clarification Form Date: 05/11/2020 From: Jose Francisco Dobson Phone: If you have a question about this query, please contact Radha Gutierrez, Supply Teacher at [phone] between 8am and 5pm. Admit Date: 05/08/2020 Discharge Date: 05/09/2020 Patient Name: Hermelinda green Visit Number: [id number] ATTENTION: The Clinical Documentation Specialists (CDI) and [facility] Coding Staff appreciate your assistance in clarifying documentation. Please respond to the clarification below the line at the bottom and electronically sign. The CDI & [facility] Coding staff will review the response and follow-up if needed. Please note: Queries are made part of the Legal Health Record. If you have any questions, please contact the author of this message via ITS. Dear Dr Valentin Hinojosa MD., Depression is documented in the Past medical history. History/Risk factors:Anxiety, cholecystectomy, hysterectomy. Treatment: buPROPion [Wellbutrin] 75 mg PO BID 07/22/19 [History] Depression mentioned in past medical history and continued Welbutrin. In your professional opinion, can you please clarify if the condition can be further specified? Specify type if known Single or recurrent episode Mild, moderate, or severe With or without psychotic features Whether in partial or full remission Other (please specify) Unable to determine Unable to determine MTDD
== END 2020-05-09 13:20 | disposition home or self-care (01) | DRG 343 ==
LOC: EC 13:33 → 6PED 17:08 → OBSVTOIN 05-08 13:07
PROVIDERS: ADMIT Surgery; ATTEND Surgery
PROC: 0DTJ4ZZ Resection of Appendix, Percutaneous Endoscopic Approach (ICD-10-PCS; principal; 2020-05-08 12:15)
DX: K35.80 Unspecified acute appendicitis (principal); K21.9 Gastro-esophageal reflux disease without esophagitis; F32.9 Major depressive disorder, single episode, unspecified; F41.9 Anxiety disorder, unspecified; K38.8 Other specified diseases of appendix; Z90.49 Acquired absence of other specified parts of digestive tract; Z90.710 Acquired absence of both cervix and uterus; Z79.899 Other long term (current) drug therapy; Z88.1 Allergy status to other antibiotic agents; Z88.5 Allergy status to narcotic agent; Z88.2 Allergy status to sulfonamides; Z88.8 Allergy status to other drugs, medicaments and biological substances
CPT/HCPCS: 36415; 76705; 76830; 80053; 81003; 83605; 83690; 85025; 88304; 96361; 96365; 96366; 96375; 99285

== ENCOUNTER 2020-05-11 08:55 | Emergency (ER) | payer BC, OTHER ==
[2020-05-11 09:04] VITALS: TEMP 98.8
--- NOTE | 2020-05-11 09:24 | ED ---
Extremity Problem HPI - General Chief complaint: Extremity Problem,Nontraumatic Stated complaint: sent by surgeon Time Seen by Provider: 05/11/20 09:09 Source: patient, RN notes reviewed, old records reviewed Mode of arrival: ambulatory Limitations: no limitations - History of Present Illness Initial comments: Patient is a 29-year-old female who presents to the emergency department today for evaluation for bilateral calf pain. She reports that have been occurring for the past 2 days. She reports that on Friday she had her appendix removed by Dr. Gonzalez. She also complains of mild cough and tickle in her throat. She thought those issues related to after intubation and anesthesia. Patient states she contacted her surgeon who told her to come to the ER for evaluation. She states that she's been doing a lot of bending at the leg rather than the back and abdomen which may relate to her calf pain. She states that she's had no previous history of blood clots. She denies chest pain. - Related Data Home Medications Medication Instructions Recorded Confirmed Omeprazole [PriLOSEC] 20 mg PO HS 07/22/19 05/05/20 buPROPion [Wellbutrin] 75 mg PO BID 07/22/19 05/05/20 lamoTRIgine [LaMICtal] 50 mg PO QAM 07/22/19 05/05/20 clonazePAM [KlonoPIN] 0.5 mg PO DAILY PRN 05/05/20 05/05/20 Previous Rx's Medication Instructions Recorded Ondansetron [Zofran ODT] 4 mg PO Q8HR PRN #15 tab 05/04/20 Docusate [Colace] 100 mg PO BID #30 capsule 05/09/20 Hydrocodone/Acetaminophen [[place] 1 tab PO Q6HR PRN 3 Days #12 tab 05/09/20 5-325] Allergies Allergy/AdvReac Type Severity Reaction Status Date / Time ciprofloxacin [From Cipro] Allergy Itching Verified 05/11/20 09:04 codeine Allergy Itching Verified 05/11/20 09:04 nitrofurantoin Allergy Itching Verified 05/11/20 09:04 [From Macrobid] prednisone Allergy "marcelo legs Verified 05/11/20 09:04 go numb" Sulfa (Sulfonamide Allergy Itching Verified 05/11/20 09:04 Antibiotics) sulfamethoxazole Allergy Itching Verified 05/11/20 09:04 [From Bactrim] trimethoprim [From Bactrim] Allergy Itching Verified 05/11/20 09:04 phenazopyridine AdvReac Abdominal Verified 05/11/20 09:04 [From Pyridium] Pain Review of Systems ROS Statement: Those systems with pertinent positive or pertinent negative responses have been documented in the HPI. ROS Other: All systems not noted in ROS Statement are negative. Past Medical History Past Medical History: GERD/Reflux Additional Past Medical History / Comment(s): abdominal pain and nausea,IBS- cholecysectomy no more IBS,states "very sensitive to pain and tolerance" History of Any Multi-Drug Resistant Organisms: None Reported Past Surgical History: Appendectomy, Cholecystectomy, Hysterectomy Past Anesthesia/Blood Transfusion Reactions: Postoperative Nausea & Vomiting (PONV) Additional Past Anesthesia/Blood Transfusion Reaction / Comment(s): no hx blood transfusion Past Psychological History: Anxiety, Depression Smoking Status: Never smoker Past Alcohol Use History: None Reported Past Drug Use History: None Reported - Past Family History Mother Family Medical History: No Reported History General Exam - General Exam Comments Initial Comments: Alert and oriented 29-year-old female. No distress. Limitations: no limitations General appearance: alert, in no apparent distress Head exam: Present: atraumatic, normocephalic, normal inspection Eye exam: Present: normal appearance, PERRL, EOMI. Absent: scleral icterus, conjunctival injection, periorbital swelling ENT exam: Present: normal exam, mucous membranes moist Neck exam: Present: normal inspection. Absent: tenderness, meningismus, lymphadenopathy Respiratory exam: Present: normal lung sounds bilaterally. Absent: respiratory distress, wheezes, rales, rhonchi, stridor Cardiovascular Exam: Present: regular rate GI/Abdominal exam: Present: soft, normal bowel sounds. Absent: distended, tenderness, guarding, rebound, rigid Extremities exam: Present: normal inspection, full ROM, normal capillary refill, calf tenderness (Bilateral Nares. No erythema or swelling. Normal pulses distally 2+ dorsalis pedis and posterior tibial.), other. Absent: tenderness, pedal edema, joint swelling Back exam: Present: normal inspection Neurological exam: Present: alert, oriented X3, CN II-XII intact Psychiatric exam: Present: normal affect, normal mood Skin exam: Present: warm, dry, intact, normal color. Absent: rash Course Vital Signs 05/11/20 08:58 Temperature 98.8 F Pulse Rate 73 Respiratory 18 Rate Blood Pressure 121/82 O2 Sat by Pulse 100 Oximetry Medical Decision Making - Medical Decision Making 21-year-old female presents the ER today for evaluation for bilateral calf pain and mild throat irritation 3 days postoperative after appendicitis. Should surgeons Dr. Echavarriaed who comes recommended Patient come to the emergency room for evaluation. She points Tenderness bilaterally. She has no erythema or swelling swelling. Ultrasounds were completed today and are negative for DVT. Due to the sore throat and slight described as tickle in Her throat Patient had chest x-ray to rule out pneumonia, and this is negative for any acute process. Vital signs are stable. She otherwise appears clinically well. Discussed if symptoms continue to persist a follow-up with PCP or surgeon again. Her abdominal systems as per well and she clinically stable. I discussed Patient to follow-up with PCP and surgeon. - Radiology Data Radiology results: report reviewed Chest x-ray is negative for any acute suspicious primary process. Ultrasound of the right leg is negative for DVT. Left legs negative for DVT. Disposition Clinical Impression: Calf pain, Throat irritation Disposition: HOME SELF-CARE Condition: Good Instructions (If sedation given, give patient instructions): Leg Cramps (ED), Pharyngitis (ED) Additional Instructions: Patient has a follow-up with primary care physician. Recommended using throat lozenges and drink plenty of fluids. Return to the ED if any alarming signs or symptoms occur. Is patient prescribed a controlled substance at d/c from ED?: No Referrals: Agustin Bradley MD [Primary Care Provider] - 1-2 days Time of Disposition: 10:39
--- NOTE | 2020-05-11 10:18 | US ---
EXAMINATION TYPE: US venous doppler duplex LE DATE OF EXAM: 05/11/2020 9:23 AM COMPARISON: NONE CLINICAL HISTORY: calf pain, post op. SIDE PERFORMED: Bilateral TECHNIQUE: The lower extremity deep venous system is examined utilizing real time linear array sonog terry with graded compression, doppler sonography and color-flow sonography. VESSELS IMAGED: External Iliac Vein (EIV) Common Femoral Vein Deep Femoral Vein Greater Saphenous Vein * Femoral Vein Popliteal Vein Small Saphenous Vein * Proximal Calf Veins (* superficial vessels) Right Leg: Negative for DVT Left Leg: Negative for DVT Grayscale, color doppler, spectral doppler imaging performed of the deep veins of the bilateral lower extremities. There is normal flow, compressibility, vascular waveforms. IMPRESSION: No ultrasound evidence for acute DVT in either lower extremity.
--- NOTE | 2020-05-11 10:34 | XR ---
EXAMINATION TYPE: XR chest 2V DATE OF EXAM: 05/11/2020 COMPARISON: NONE HISTORY: Congestion after recent surgery. TECHNIQUE: Frontal and lateral views of the chest are obtained. FINDINGS: There is no focal air space opacity, pleural effusion, or pneumothorax seen. The cardiac silhouette size is within normal limits. The osseous structures are intact. IMPRESSION: No suspicious acute pulmonary process.
[2020-05-11 10:56] VITALS: BP 128/90; PULSE 70; RESP 16
== END 2020-05-11 10:55 | disposition home or self-care (01) ==
LOC: EC 08:55
DX: M79.661 Pain in right lower leg (principal); M79.662 Pain in left lower leg; K21.9 Gastro-esophageal reflux disease without esophagitis; K58.9 Irritable bowel syndrome, unspecified; J02.9 Acute pharyngitis, unspecified; F41.9 Anxiety disorder, unspecified; F32.9 Major depressive disorder, single episode, unspecified; Z79.899 Other long term (current) drug therapy; Z88.1 Allergy status to other antibiotic agents; Z88.2 Allergy status to sulfonamides; Z88.8 Allergy status to other drugs, medicaments and biological substances; Z88.5 Allergy status to narcotic agent; Z90.49 Acquired absence of other specified parts of digestive tract
CPT/HCPCS: 71046; 93970; 99284

== ENCOUNTER 2020-05-12 13:02 | Emergency (ER) | payer BC, OTHER ==
[2020-05-12] MEDS ORDERED: SODIUM CHLORIDE 0.9% 1,000 ML IV STA (13:46)
--- NOTE | 2020-05-12 14:02 | ED ---
Abdominal Pain HPI - General Chief Complaint: Abdominal Pain Stated Complaint: Fever, Abd Pain Time Seen by Provider: 05/12/20 13:22 Source: patient, RN notes reviewed Mode of arrival: ambulatory Limitations: no limitations - History of Present Illness Initial Comments: 21-year-old female presents emergency Department chief complaint of abdominal discomfort, diarrhea. Patient status post appendectomy on Friday by Dr. Hanson. Patient states that she has developed diarrhea when she attempts see. Patient states it was watery, yellow in nature. Denies any melena or hematochezia. Patient states that she just had a bowel movement here which is no solid. She reports a temp 100.2 at home. She is not taking any recent Tylenol Motrin. Patient was seen here a few days prior for bilateral leg pain. Rule out DVT. Patient states her incision sites are healing well. She has no localized pain other than if you press on her abdomen she has mild discomfort around surgical sites. - Related Data Home Medications Medication Instructions Recorded Confirmed Omeprazole [PriLOSEC] 20 mg PO HS 07/22/19 05/11/20 buPROPion [Wellbutrin] 75 mg PO BID 07/22/19 05/11/20 lamoTRIgine [LaMICtal] 25 mg PO BID 07/22/19 05/11/20 clonazePAM [KlonoPIN] 0.5 mg PO DAILY PRN 05/05/20 05/11/20 Hydrocodone/Acetaminophen [[place] 0.5 - 1 tab PO Q6HR PRN 05/11/20 05/11/20 5-325] Ibuprofen [Motrin Ib] 600 mg PO Q8H PRN 05/11/20 05/11/20 Previous Rx's Medication Instructions Recorded Ondansetron [Zofran ODT] 4 mg PO Q8HR PRN #15 tab 05/04/20 Dicyclomine [Bentyl] 20 mg PO TID #30 tablet 05/12/20 Allergies Allergy/AdvReac Type Severity Reaction Status Date / Time ciprofloxacin [From Cipro] Allergy Itching Verified 05/12/20 13:20 codeine Allergy Itching Verified 05/12/20 13:20 nitrofurantoin Allergy Itching Verified 05/12/20 13:20 [From Macrobid] prednisone Allergy "marcelo legs Verified 05/12/20 13:20 go numb" Sulfa (Sulfonamide Allergy Itching Verified 05/12/20 13:20 Antibiotics) sulfamethoxazole Allergy Itching Verified 05/12/20 13:20 [From Bactrim] trimethoprim [From Bactrim] Allergy Itching Verified 05/12/20 13:20 phenazopyridine AdvReac Abdominal Verified 05/12/20 13:20 [From Pyridium] Pain Review of Systems ROS Statement: Those systems with pertinent positive or pertinent negative responses have been documented in the HPI. ROS Other: All systems not noted in ROS Statement are negative. Past Medical History Past Medical History: GERD/Reflux Additional Past Medical History / Comment(s): IBS- cholecysectomy no more IBS, History of Any Multi-Drug Resistant Organisms: None Reported Past Surgical History: Appendectomy, Cholecystectomy, Hysterectomy Past Anesthesia/Blood Transfusion Reactions: Postoperative Nausea & Vomiting (PONV) Additional Past Anesthesia/Blood Transfusion Reaction / Comment(s): no hx blood transfusion Past Psychological History: Anxiety, Depression Smoking Status: Never smoker Past Alcohol Use History: None Reported Past Drug Use History: None Reported - Past Family History Mother Family Medical History: No Reported History General Exam Limitations: no limitations General appearance: alert, in no apparent distress Head exam: Present: atraumatic, normocephalic, normal inspection Eye exam: Present: normal appearance, PERRL, EOMI. Absent: scleral icterus, conjunctival injection, periorbital swelling ENT exam: Present: normal exam, normal oropharynx, mucous membranes moist Neck exam: Present: normal inspection, full ROM. Absent: tenderness, meningismus, lymphadenopathy Respiratory exam: Present: normal lung sounds bilaterally. Absent: respiratory distress, wheezes, rales, rhonchi, stridor Cardiovascular Exam: Present: regular rate, normal rhythm, normal heart sounds. Absent: systolic murmur, diastolic murmur, rubs, gallop, clicks GI/Abdominal exam: Present: soft, tenderness (Mild tenderness diffusely moderate right lower), normal bowel sounds. Absent: distended, guarding, rebound, rigid Back exam: Absent: CVA tenderness (R), CVA tenderness (L) Neurological exam: Present: alert Skin exam: Present: warm, dry, intact, normal color. Absent: rash Course Vital Signs 05/12/20 05/12/20 13:17 15:26 Temperature 99.3 F 98.4 F Pulse Rate 75 71 Respiratory 18 16 Rate Blood Pressure 118/83 125/73 O2 Sat by Pulse 96 98 Oximetry Medical Decision Making - Medical Decision Making 21-year-old female present for abdominal cramping pain and mild diarrhea which has resolved. Patient's labs unremarkable. I do this is secondary to postsurgical and antibiotics during acute appendicitis. Patient will be discharged in stable condition area and return parameters were discussed. - Lab Data Result diagrams: 05/12/20 13:54 05/12/20 13:54 Lab Results 05/12/20 05/12/20 05/12/20 Range/Units 13:54 13:54 13:54 WBC 10.5 (3.8-10.6) k/uL RBC 4.84 (3.80-5.40) m/uL Hgb 13.6 (11.4-16.0) gm/dL Hct 43.0 (34.0-46.0) % MCV 88.9 (80.0-100.0) fL MCH 28.2 (25.0-35.0) pg MCHC 31.7 (31.0-37.0) g/dL RDW 14.7 (11.5-15.5) % Plt Count 363 (150-450) k/uL Neutrophils % 79 % Lymphocytes % 13 % Monocytes % 3 % Eosinophils % 4 % Basophils % 0 % Neutrophils # 8.3 H (1.3-7.7) k/uL Lymphocytes # 1.4 (1.0-4.8) k/uL Monocytes # 0.4 (0-1.0) k/uL Eosinophils # 0.4 (0-0.7) k/uL Basophils # 0.0 (0-0.2) k/uL Sodium 140 (137-145) mmol/L Potassium 3.9 (3.5-5.1) mmol/L Chloride 105 (98-107) mmol/L Carbon Dioxide 25 (22-30) mmol/L Anion Gap 10 mmol/L BUN 6 L (7-17) mg/dL Creatinine 0.63 (0.52-1.04) mg/dL Est GFR (CKD-EPI)AfAm >90 (>60 ml/min/1.73 sqM) Est GFR (CKD-EPI)NonAf >90 (>60 ml/min/1.73 sqM) Glucose 103 H (74-99) mg/dL Plasma Lactic Acid [place] (0.7-2.0) mmol/L Calcium 9.6 (8.4-10.2) mg/dL Total Bilirubin 0.7 (0.2-1.3) mg/dL AST 34 (14-36) U/L ALT 27 (4-34) U/L Alkaline Phosphatase 78 (38-126) U/L Total Protein 7.6 (6.3-8.2) g/dL Albumin 4.5 (3.5-5.0) g/dL Lipase 93 (23-300) U/L Urine Color Yellow Urine Appearance Clear (Clear) Urine pH 8.5 H (5.0-8.0) Ur Specific [place] 1.014 (1.001-1.035) Urine Protein Negative (Negative) Urine Glucose (UA) Negative (Negative) Urine Ketones 1+ H (Negative) Urine Blood Negative (Negative) Urine Nitrite Negative (Negative) Urine Bilirubin Negative (Negative) Urine Urobilinogen <2.0 (<2.0) mg/dL Ur Leukocyte Esterase Negative (Negative) 05/12/20 Range/Units 13:54 WBC (3.8-10.6) k/uL RBC (3.80-5.40) m/uL Hgb (11.4-16.0) gm/dL Hct (34.0-46.0) % MCV (80.0-100.0) fL MCH (25.0-35.0) pg MCHC (31.0-37.0) g/dL RDW (11.5-15.5) % Plt Count (150-450) k/uL Neutrophils % % Lymphocytes % % Monocytes % % Eosinophils % % Basophils % % Neutrophils # (1.3-7.7) k/uL Lymphocytes # (1.0-4.8) k/uL Monocytes # (0-1.0) k/uL Eosinophils # (0-0.7) k/uL Basophils # (0-0.2) k/uL Sodium (137-145) mmol/L Potassium (3.5-5.1) mmol/L Chloride (98-107) mmol/L Carbon Dioxide (22-30) mmol/L Anion Gap mmol/L BUN (7-17) mg/dL Creatinine (0.52-1.04) mg/dL Est GFR (CKD-EPI)AfAm (>60 ml/min/1.73 sqM) Est GFR (CKD-EPI)NonAf (>60 ml/min/1.73 sqM) Glucose (74-99) mg/dL Plasma Lactic Acid [place] 1.5 (0.7-2.0) mmol/L Calcium (8.4-10.2) mg/dL Total Bilirubin (0.2-1.3) mg/dL AST (14-36) U/L ALT (4-34) U/L Alkaline Phosphatase (38-126) U/L Total Protein (6.3-8.2) g/dL Albumin (3.5-5.0) g/dL Lipase (23-300) U/L Urine Color Urine Appearance (Clear) Urine pH (5.0-8.0) Ur Specific [place] (1.001-1.035) Urine Protein (Negative) Urine Glucose (UA) (Negative) Urine Ketones (Negative) Urine Blood (Negative) Urine Nitrite (Negative) Urine Bilirubin (Negative) Urine Urobilinogen (<2.0) mg/dL Ur Leukocyte Esterase (Negative) Disposition Clinical Impression: Abdominal pain, Abdominal cramping, Diarrhea Disposition: HOME SELF-CARE Condition: Stable Instructions (If sedation given, give patient instructions): Abdominal Pain (ED) Additional Instructions: Please return to the Emergency Department if symptoms worsen or any other concerns. Prescriptions: Dicyclomine [Bentyl] 20 mg PO TID #30 tablet Is patient prescribed a controlled substance at d/c from ED?: No Referrals: Agustin Bradley MD [Primary Care Provider] - 1-2 days Time of Disposition: 15:50
[2020-05-12 14:07] LABS: Basophils % (A) 0 %; Eosinophils # (A) 0.4 k/uL (0-0.7); Eosinophils % (A) 4 %; HGB 13.6 gm/dL (11.4-16.0); Lymphocytes # (A) 1.4 k/uL (1.0-4.8); Lymphocytes % (A) 13 %; MCH 28.2 pg (25.0-35.0); MCHC 31.7 g/dL (31.0-37.0); MCV 88.9 fL (80.0-100.0); Mean Platelet Volume 8.3; Monocytes # (A) 0.4 k/uL (0-1.0); Monocytes % (A) 3 %; Neutrophils # (A) 8.3 k/uL (1.3-7.7); Neutrophils % (A) 79 %; Platelet Count 363 k/uL (150-450); RBC 4.84 m/uL (3.80-5.40); RDW 14.7 % (11.5-15.5); WBC 10.5 k/uL (3.8-10.6)
[2020-05-12 14:15] LABS: ALT 27 U/L (4-34); AST 34 U/L (14-36); African American GFR (CKD) >90 (>60 ml/min/1.73 sqM); Albumin 4.5 g/dL (3.5-5.0); Alkaline Phosphatase 78 U/L (38-126); Anion Gap 10 mmol/L; Blood Urea Nitrogen 6 mg/dL (7-17); Calcium 9.6 mg/dL (8.4-10.2); Carbon Dioxide 25 mmol/L (22-30); Chloride 105 mmol/L (98-107); Glucose 103 mg/dL (74-99); Non-African American GFR(CKD) >90 (>60 ml/min/1.73 sqM); Potassium 3.9 mmol/L (3.5-5.1); Sodium 140 mmol/L (137-145); Total Bilirubin 0.7 mg/dL (0.2-1.3); Total Protein 7.6 g/dL (6.3-8.2)
[2020-05-12 15:26] VITALS: BP 125/73; PULSE 71; RESP 16; TEMP 98.4
[2020-05-12 15:37] LABS: Appearance,Urine Clear (Clear); Bilirubin,Urine Negative (Negative); Blood,Urine Negative (Negative); Color,Urine Yellow; Glucose,Urine (UA) Negative (Negative); Ketones,Urine 1+ (Negative); Leukocyte Esterase,Urine Negative (Negative); Nitrite,Urine Negative (Negative); PH, Urine 8.5 (5.0-8.0); Protein,Urine Negative (Negative); Specific Gravity,Urine 1.014 (1.001-1.035); Urobilinogen,Urine <2.0 mg/dL (<2.0)
== END 2020-05-12 16:13 | disposition home or self-care (01) ==
LOC: EC 13:02
DX: R10.813 Right lower quadrant abdominal tenderness (principal); R19.7 Diarrhea, unspecified; K21.9 Gastro-esophageal reflux disease without esophagitis; F41.9 Anxiety disorder, unspecified; F32.9 Major depressive disorder, single episode, unspecified; Z90.710 Acquired absence of both cervix and uterus; Z79.899 Other long term (current) drug therapy; Z88.1 Allergy status to other antibiotic agents; Z88.2 Allergy status to sulfonamides; Z88.5 Allergy status to narcotic agent; Z88.8 Allergy status to other drugs, medicaments and biological substances; Z90.49 Acquired absence of other specified parts of digestive tract
CPT/HCPCS: 36415; 80053; 81003; 83605; 83690; 85025; 96360; 96361; 99284

== ENCOUNTER → 2020-05-17 | Outpatient (CLI) | payer BC, OTHER ==
--- NOTE | 2020-05-17 13:16 | XR ---
EXAMINATION TYPE: XR abdomen 2V DATE OF EXAM: 05/17/2020 COMPARISON: 07/21/2019 HISTORY: Nausea TECHNIQUE: One view abdominal series FINDINGS: The osseous structures are intact. The bowel gas pattern is nonspecific. Lung bases are clear. Calc ifications in the pelvis are nonspecific but likely vascular. IMPRESSION: 1. Nonspecific abdomen.
== END | disposition home or self-care (01) ==
LOC: RADXRMAIN 12:27
PROVIDERS: ATTEND Pediatrics
DX: R11.0 Nausea (principal)
CPT/HCPCS: 74019

== ENCOUNTER → 2020-06-14 | Outpatient (CLI) | payer BC, OTHER ==
--- NOTE | 2020-06-14 16:19 | US ---
EXAMINATION TYPE: US pelvic complete DATE OF EXAM: 06/14/2020 COMPARISON: Prior ultrasound May 05, 2020. Recent CT May 04, 2020 CLINICAL HISTORY: R10.2 Pelvic PainR10.2 Pelvic Pain. right pelvic pain, partial hysterectomy 04/22 TECHNIQUE: Transabdominal (TA) Date of LMP: unknown EXAM MEASUREMENTS: Uterus: Surgically absent Endometrial Stripe: Surgically absent Right Ovary: 3.0 x 1.8 x 2.8 cm Left Ovary: 2.7 x 1.1 x 1.8 cm 1. Uterus: Surgically absent, vaginal cuff = 1.4cm 2. Endometrium: Surgically absent 3. Right Ovary: follicles noted 4. Left Ovary: follicles noted 5. Bilateral Adnexa: appears wnl Uterus is surgically absent. No free fluid. Current study is able to document symmetric nonenlarged o varies versus recent ultrasound. No suspicious adnexal masses. IMPRESSION: Source of patient's right-sided pelvic pain not identified. Unremarkable study.
== END | disposition home or self-care (01) ==
LOC: RADUSWWP 15:02
PROVIDERS: ATTEND Pediatrics
DX: R10.2 Pelvic and perineal pain (principal)
CPT/HCPCS: 76856

== ENCOUNTER 2020-07-17 13:35 | Emergency (ER) | payer BC, OTHER ==
[2020-07-17 14:09] VITALS: RESP 18
--- NOTE | 2020-07-17 15:06 | ED ---
ENT HPI - General Chief complaint: ENT Stated complaint: food stuck in throat Time Seen by Provider: 07/17/20 14:27 Source: patient Mode of arrival: ambulatory Limitations: no limitations - History of Present Illness Initial comments: Patient is a 30-year-old female presenting to the emergency Department with complaints of a possible piece of food stuck in her throat. Patient states about an hour and a half ago she was eating pizza and she feels like there is a piece of pizza crust stuck in the left side of her throat. She denies any trouble breathing, no significant pain. Patient states she has been able to drink water, there is been no vomiting. Patient states she has not attempted to eat any more solid foods. Patient states she has had a swallow study test performed in the past secondary to trouble swelling pills, no acute findings. She has no further complaints at this time. Upon arrival to the ER her vitals are stable. - Related Data Home Medications Medication Instructions Recorded Confirmed Omeprazole [PriLOSEC] 20 mg PO HS 07/22/19 05/12/20 buPROPion [Wellbutrin] 75 mg PO BID 07/22/19 05/12/20 lamoTRIgine [LaMICtal] 25 mg PO BID 07/22/19 05/12/20 clonazePAM [KlonoPIN] 0.5 mg PO DAILY PRN 05/05/20 05/12/20 Hydrocodone/Acetaminophen [[place] 0.5 - 1 tab PO Q6HR PRN 05/11/20 05/12/20 5-325] Ibuprofen [Motrin Ib] 600 mg PO Q8H PRN 05/11/20 05/12/20 Previous Rx's Medication Instructions Recorded Ondansetron [Zofran ODT] 4 mg PO Q8HR PRN #15 tab 05/04/20 Dicyclomine [Bentyl] 20 mg PO TID #30 tablet 05/12/20 Allergies Allergy/AdvReac Type Severity Reaction Status Date / Time ciprofloxacin [From Cipro] Allergy Itching Verified 07/17/20 14:09 codeine Allergy Itching Verified 07/17/20 14:09 nitrofurantoin Allergy Itching Verified 07/17/20 14:09 [From Macrobid] prednisone Allergy "marcelo legs Verified 07/17/20 14:09 go numb" Sulfa (Sulfonamide Allergy Itching Verified 07/17/20 14:09 Antibiotics) sulfamethoxazole Allergy Itching Verified 07/17/20 14:09 [From Bactrim] trimethoprim [From Bactrim] Allergy Itching Verified 07/17/20 14:09 phenazopyridine AdvReac Abdominal Verified 07/17/20 14:09 [From Pyridium] Pain Review of Systems ROS Statement: Those systems with pertinent positive or pertinent negative responses have been documented in the HPI. ROS Other: All systems not noted in ROS Statement are negative. Past Medical History Past Medical History: GERD/Reflux Additional Past Medical History / Comment(s): IBS- cholecysectomy no more IBS, History of Any Multi-Drug Resistant Organisms: None Reported Past Surgical History: Appendectomy, Cholecystectomy, Hysterectomy Past Anesthesia/Blood Transfusion Reactions: Postoperative Nausea & Vomiting (PONV) Additional Past Anesthesia/Blood Transfusion Reaction / Comment(s): no hx blood transfusion Past Psychological History: Anxiety, Depression Smoking Status: Never smoker Past Alcohol Use History: None Reported Past Drug Use History: None Reported - Past Family History Mother Family Medical History: No Reported History General Exam - General Exam Comments Initial Comments: GENERAL: Patient is well-developed and well-nourished. Patient is nontoxic and in no acute distress. HEAD: Atraumatic, normocephalic. EYES: Pupils equal round and reactive to light, extraocular movements intact, sclera anicteric, conjunctiva are normal. Eyelids were unremarkable. ENT: TMs normal, nares patent, oropharynx clear without exudates. Moist mucous membranes. NECK: Normal range of motion, supple without lymphadenopathy or JVD. LUNGS: Unlabored respirations. Breath sounds clear to auscultation bilaterally and equal. No wheezes rales or rhonchi. HEART: Regular rate and rhythm without murmurs, rubs or gallops. ABDOMEN: Soft, nontender, normoactive bowel sounds. No guarding, no rebound. No masses appreciated. : Deferred MUSCULOSKELETAL: Normal extremities with adequate strength and normal range of motion, no pitting or edema. No clubbing or cyanosis. NEUROLOGICAL: Patient is alert and oriented x 3. Motor and sensory are also intact. Cranial nerves II through XII grossly intact. Symmetrical smile. Normal speech, normal gait. PSYCH: Normal mood, normal affect. SKIN: Warm, Dry, normal turgor, no rashes or lesions noted. Limitations: no limitations Course Vital Signs 07/17/20 07/17/20 14:06 15:39 Temperature 98.2 F 98.7 F Pulse Rate 98 99 Respiratory 18 18 Rate Blood Pressure 114/76 127/72 O2 Sat by Pulse 100 97 Oximetry Medical Decision Making - Medical Decision Making Patient is a 30-year-old female here with a feeling of a piece of food stuck in her throat 1 hour. She has been able to drink liquids without difficulty, no vomiting. She denies any trouble breathing, she is in no acute distress. Her exam is unremarkable. Soft tissue neck x-ray reveals no acute process. Patient was able to drink water in the ER. I discussed these findings with the patient, she is stable for discharge. Patient will continue to monitor her symptoms and will follow up with her PCP if symptoms persist. I do feel like some of her worry is from her anxiety. Return parameters were discussed with the patient she verbalized understanding. Case discussed with Dr. Bryant. Disposition Clinical Impression: Sore throat Disposition: HOME SELF-CARE Condition: Stable Instructions (If sedation given, give patient instructions): Normal Exam (ED) Additional Instructions: Please return to the Emergency Department if symptoms worsen or any other concerns. Dictated drink plenty of water. Follow up with your regular doctor if needed. Is patient prescribed a controlled substance at d/c from ED?: No Referrals: Agustin Bradley MD [Primary Care Provider] - 1-2 days
[2020-07-17 15:41] VITALS: BP 127/72; PULSE 99; TEMP 98.7
--- NOTE | 2020-07-17 15:47 | XR ---
EXAMINATION TYPE: XR soft tissue neck DATE OF EXAM: 07/17/2020 COMPARISON: NONE HISTORY: Possible foreign body TECHNIQUE: 2 view submitted FINDINGS: Prevertebral soft tissue structures within normal limits. No metallic or radiopaque foreign body iden tified. Airways patent. Epiglottis normal. Osseous structures intact. IMPRESSION:
== END 2020-07-17 16:15 | disposition home or self-care (01) ==
LOC: EC 13:35
DX: J02.9 Acute pharyngitis, unspecified (principal); K21.9 Gastro-esophageal reflux disease without esophagitis; F41.9 Anxiety disorder, unspecified; F32.9 Major depressive disorder, single episode, unspecified; Z79.899 Other long term (current) drug therapy; Z88.1 Allergy status to other antibiotic agents; Z88.2 Allergy status to sulfonamides; Z88.5 Allergy status to narcotic agent; Z88.8 Allergy status to other drugs, medicaments and biological substances; Z90.49 Acquired absence of other specified parts of digestive tract; Z90.710 Acquired absence of both cervix and uterus
CPT/HCPCS: 70360; 99283

== ENCOUNTER 2020-11-07 09:18 | Emergency (ER) | payer BC, OTHER ==
[2020-11-07 09:52] VITALS: RESP 18
[2020-11-07] MEDS ORDERED: POTASSIUM CHLORIDE 10 MEQ in WATER FOR INJECTION 1 100ML.BAG IVPB STA (11:04)
[2020-11-07] MEDS ORDERED: SODIUM CHLORIDE 0.9% 1,000 ML IV STA (11:04)
[2020-11-07] MEDS ORDERED: KETOROLAC 15 MG/ML 1 ML VIAL IVP STA (11:04)
--- NOTE | 2020-11-07 11:08 | ED ---
General Adult HPI - General Chief complaint: ENT Stated complaint: Sent by PCP - throat swelling Time Seen by Provider: 11/07/20 10:40 Source: patient, RN notes reviewed Mode of arrival: ambulatory Limitations: no limitations - History of Present Illness Initial comments: Patient is a 30-year-old female that presents to emergency department complaining of difficulty swallowing. She notes that she was recently seen at [facility] where they admitted her to get a scope but she left AMA because she felt like she was being treated properly. She did not bring any printout but she did show me her labs and test results on her phone. She did have a p otassium of 3.5, BUN 7. Patient states that they told her chest x-ray was clear her soft tissue of her neck was negative for any acute process and her computed tomography scan showed some mild fluid retention possibly a gland issue. She notes that she is unable to swallow any liquids or solid foods due to it feel like its getting stuck that she feels like she has to gag to get it out. She notes that she can swallow spit but it takes a good amount of effort. She denied any pain or discomfort when she is not swallowing. She denies any swelling or tenderness. She was in no apparent distress or pain while 7 Benadryl exam and interview. She denied any chest pain shortness of breath headache nausea vomiting diarrhea constipation fever fatigue chills. She denies she has a history of a hiatal hernia, which she noted they admitted her scope to see if it was worsening. - Related Data Home Medications Medication Instructions Recorded Confirmed Omeprazole [PriLOSEC] 20 mg PO HS 07/22/19 11/07/20 buPROPion [Wellbutrin] 75 mg PO BID 07/22/19 11/07/20 lamoTRIgine [LaMICtal] 50 mg PO DAILY 07/22/19 11/07/20 clonazePAM [KlonoPIN] 0.25 mg PO DAILY PRN 05/05/20 11/07/20 Cephalexin [Keflex Susp] 500 mg PO Q8H 11/07/20 11/07/20 Famotidine 40 mg PO DAILY PRN 11/07/20 11/07/20 Mag Carb/Aluminum Hydrox/Algin 30 ml PO Q6H PRN 11/07/20 11/07/20 [Gaviscon Liquid] Allergies Allergy/AdvReac Type Severity Reaction Status Date / Time ciprofloxacin [From Cipro] Allergy Itching Verified 11/07/20 11:28 codeine Allergy Itching Verified 11/07/20 11:28 nitrofurantoin Allergy Itching Verified 11/07/20 11:28 [From Macrobid] prednisone Allergy "marcelo legs Verified 11/07/20 11:28 go numb" Sulfa (Sulfonamide Allergy Itching Verified 11/07/20 11:28 Antibiotics) sulfamethoxazole Allergy Itching Verified 11/07/20 11:28 [From Bactrim] trimethoprim [From Bactrim] Allergy Itching Verified 11/07/20 11:28 phenazopyridine AdvReac Abdominal Verified 11/07/20 11:28 [From Pyridium] Pain Review of Systems ROS Statement: Those systems with pertinent positive or pertinent negative responses have been documented in the HPI. ROS Other: All systems not noted in ROS Statement are negative. Past Medical History Past Medical History: GERD/Reflux Additional Past Medical History / Comment(s): IBS- cholecysectomy no more IBS, History of Any Multi-Drug Resistant Organisms: None Reported Past Surgical History: Appendectomy, Cholecystectomy, Hysterectomy Past Anesthesia/Blood Transfusion Reactions: Postoperative Nausea & Vomiting (PONV) Additional Past Anesthesia/Blood Transfusion Reaction / Comment(s): no hx blood transfusion Past Psychological History: Anxiety, Depression Smoking Status: Never smoker Past Alcohol Use History: None Reported Past Drug Use History: None Reported - Past Family History Mother Family Medical History: No Reported History General Exam Limitations: no limitations General appearance: alert, in no apparent distress Head exam: Present: atraumatic, normocephalic, normal inspection Eye exam: Present: normal appearance, PERRL, EOMI. Absent: scleral icterus, conjunctival injection, periorbital swelling ENT exam: Present: normal exam, normal oropharynx, mucous membranes moist Neck exam: Present: normal inspection, full ROM. Absent: tenderness, meningismus, lymphadenopathy Respiratory exam: Present: normal lung sounds bilaterally. Absent: respiratory distress, wheezes, rales, rhonchi, stridor Cardiovascular Exam: Present: regular rate, normal rhythm, normal heart sounds. Absent: systolic murmur, diastolic murmur, rubs, gallop, clicks GI/Abdominal exam: Present: soft, normal bowel sounds. Absent: distended, tenderness, guarding, rebound, rigid Extremities exam: Present: normal inspection, full ROM, normal capillary refill. Absent: tenderness, pedal edema, joint swelling, calf tenderness Neurological exam: Present: alert, oriented X3, CN II-XII intact Psychiatric exam: Present: normal affect, normal mood Skin exam: Present: warm, dry, intact, normal color. Absent: rash Course Vital Signs 11/07/20 09:46 Temperature 98.1 F Pulse Rate 116 H Respiratory 18 Rate Blood Pressure 123/86 O2 Sat by Pulse 99 Oximetry Medical Decision Making - Medical Decision Making 30-year-old female complaining of dysphagia for several days. We will contact [facility] to get medical records from the last several days. CBC, basic metabolic panel, of tissue neck x-ray, 15 mg Toradol for headache, sore uvula, 1 L normal saline, 10 mEq of potassium IVPB ordered. Potassium held due to patient's potassium level being 4.4 on labs. The rest of labs unremarkable slightly elevated white count. Patient states that she was anxious, 1 mg of Ativan ordered. Case discussed with Dr. Watkins, patient can discharge home with follow-up to ENT specialist. - Lab Data Result diagrams: 11/07/20 11:29 11/07/20 11:29 Lab Results 11/07/20 11/07/20 Range/Units 11:29 11:29 WBC 12.3 H (3.8-10.6) k/uL RBC 4.96 (3.80-5.40) m/uL Hgb 14.0 (11.4-16.0) gm/dL Hct 42.1 (34.0-46.0) % MCV 84.9 (80.0-100.0) fL MCH 28.2 (25.0-35.0) pg MCHC 33.2 (31.0-37.0) g/dL RDW 13.6 (11.5-15.5) % Plt Count 399 (150-450) k/uL MPV 7.4 Neutrophils % 92 % Lymphocytes % 5 % Monocytes % 1 % Eosinophils % 1 % Basophils % 0 % Neutrophils # 11.4 H (1.3-7.7) k/uL Lymphocytes # 0.7 L (1.0-4.8) k/uL Monocytes # 0.1 (0-1.0) k/uL Eosinophils # 0.2 (0-0.7) k/uL Basophils # 0.0 (0-0.2) k/uL Sodium 139 (137-145) mmol/L Potassium 4.4 (3.5-5.1) mmol/L Chloride 105 (98-107) mmol/L Carbon Dioxide 22 (22-30) mmol/L Anion Gap 12 mmol/L BUN 12 (7-17) mg/dL Creatinine 0.60 (0.52-1.04) mg/dL Est GFR (CKD-EPI)AfAm >90 (>60 ml/min/1.73 sqM) Est GFR (CKD-EPI)NonAf >90 (>60 ml/min/1.73 sqM) Glucose 109 H (74-99) mg/dL Calcium 9.6 (8.4-10.2) mg/dL - Radiology Data Radiology results: report reviewed, image reviewed Soft tissue x-ray of the neck: Prevertebral soft tissue structures are within normal limits. Epiglottis has a normal appearance. Osseous structures grossly intact. No acute process Disposition Clinical Impression: Dysphagia Disposition: HOME SELF-CARE Condition: Stable Instructions (If sedation given, give patient instructions): Dysphagia (ED) Additional Instructions: Please return to the Emergency Department if symptoms worsen or any other concerns. Follow-up with primary care in 2-4 days. Consult ENT for possible in office scope. Eat and drink as tolerated. Is patient prescribed a controlled substance at d/c from ED?: No Referrals: Agustin Bradley MD [Primary Care Provider] - 1-2 days Time of Disposition: 13:29
[2020-11-07 11:38] LABS: Basophils % (A) 0 %; Eosinophils # (A) 0.2 k/uL (0-0.7); Eosinophils % (A) 1 %; HCT 42.1 % (34.0-46.0); Lymphocytes # (A) 0.7 k/uL (1.0-4.8); Lymphocytes % (A) 5 %; MCH 28.2 pg (25.0-35.0); MCHC 33.2 g/dL (31.0-37.0); MCV 84.9 fL (80.0-100.0); Mean Platelet Volume 7.4; Monocytes # (A) 0.1 k/uL (0-1.0); Monocytes % (A) 1 %; Neutrophils # (A) 11.4 k/uL (1.3-7.7); Neutrophils % (A) 92 %; Platelet Count 399 k/uL (150-450); RBC 4.96 m/uL (3.80-5.40); RDW 13.6 % (11.5-15.5); WBC 12.3 k/uL (3.8-10.6)
[2020-11-07 11:46] LABS: African American GFR (CKD) >90 (>60 ml/min/1.73 sqM); Anion Gap 12 mmol/L; Blood Urea Nitrogen 12 mg/dL (7-17); Calcium 9.6 mg/dL (8.4-10.2); Carbon Dioxide 22 mmol/L (22-30); Chloride 105 mmol/L (98-107); Glucose 109 mg/dL (74-99); Non-African American GFR(CKD) >90 (>60 ml/min/1.73 sqM); Potassium 4.4 mmol/L (3.5-5.1); Sodium 139 mmol/L (137-145)
--- NOTE | 2020-11-07 12:04 | XR ---
EXAMINATION TYPE: XR soft tissue neck DATE OF EXAM: 11/07/2020 COMPARISON: NONE HISTORY: Dysphasia TECHNIQUE: 2 view submitted FINDINGS: Prevertebral soft tissue structures are within normal limits. Epiglottis has a normal appea charles. Osseous structures grossly intact. IMPRESSION: No acute process.
[2020-11-07] MEDS ORDERED: LORazepam 2 MG/ML INJ IV STA (12:53)
--- NOTE | 2020-11-07 13:34 | ED ---
Medical Decision Making - Lab Data Result diagrams: 11/07/20 11:29 11/07/20 11:29 Lab Results 11/07/20 11/07/20 Range/Units 11:29 11:29 WBC 12.3 H (3.8-10.6) k/uL RBC 4.96 (3.80-5.40) m/uL Hgb 14.0 (11.4-16.0) gm/dL Hct 42.1 (34.0-46.0) % MCV 84.9 (80.0-100.0) fL MCH 28.2 (25.0-35.0) pg MCHC 33.2 (31.0-37.0) g/dL RDW 13.6 (11.5-15.5) % Plt Count 399 (150-450) k/uL MPV 7.4 Neutrophils % 92 % Lymphocytes % 5 % Monocytes % 1 % Eosinophils % 1 % Basophils % 0 % Neutrophils # 11.4 H (1.3-7.7) k/uL Lymphocytes # 0.7 L (1.0-4.8) k/uL Monocytes # 0.1 (0-1.0) k/uL Eosinophils # 0.2 (0-0.7) k/uL Basophils # 0.0 (0-0.2) k/uL Sodium 139 (137-145) mmol/L Potassium 4.4 (3.5-5.1) mmol/L Chloride 105 (98-107) mmol/L Carbon Dioxide 22 (22-30) mmol/L Anion Gap 12 mmol/L BUN 12 (7-17) mg/dL Creatinine 0.60 (0.52-1.04) mg/dL Est GFR (CKD-EPI)AfAm >90 (>60 ml/min/1.73 sqM) Est GFR (CKD-EPI)NonAf >90 (>60 ml/min/1.73 sqM) Glucose 109 H (74-99) mg/dL Calcium 9.6 (8.4-10.2) mg/dL Disposition Clinical Impression: Dysphagia Disposition: HOME SELF-CARE Condition: Stable Instructions (If sedation given, give patient instructions): Dysphagia (ED) Additional Instructions: Please return to the Emergency Department if symptoms worsen or any other concerns. Follow-up with primary care in 2-4 days. Consult ENT for possible in office scope. Eat and drink as tolerated. Is patient prescribed a controlled substance at d/c from ED?: No Referrals: Agustin Bradley MD [Primary Care Provider] - 1-2 days Wale Olmstead MD [STAFF PHYSICIAN] - 1-2 days
[2020-11-07 14:34] VITALS: BP 119/68; PULSE 73; TEMP 98.2
== END 2020-11-07 14:32 | disposition home or self-care (01) ==
LOC: EC 09:18
DX: R13.10 Dysphagia, unspecified (principal); K21.9 Gastro-esophageal reflux disease without esophagitis; F32.9 Major depressive disorder, single episode, unspecified; F41.9 Anxiety disorder, unspecified; Z79.899 Other long term (current) drug therapy; Z88.1 Allergy status to other antibiotic agents; Z88.2 Allergy status to sulfonamides; Z88.5 Allergy status to narcotic agent; Z88.8 Allergy status to other drugs, medicaments and biological substances
CPT/HCPCS: 36415; 80048; 85025; 70360; 99284; 96374; 96375; 96361; J2060; J1885

== ENCOUNTER 2020-11-17 20:02 | Emergency (ER) | payer BC, OTHER ==
[2020-11-17 20:11] VITALS: TEMP 98
--- NOTE | 2020-11-17 20:38 | ED ---
General Adult HPI - General Chief complaint: ENT Stated complaint: Throat issue Time Seen by Provider: 11/17/20 20:17 Source: patient, RN notes reviewed Mode of arrival: ambulatory Limitations: no limitations - History of Present Illness Initial comments: 30-year-old female with a past medical history of cholecystectomy, GERD presents to the emergency room for a chief complaint of throat issues. Patient reports that for the past several weeks she has had of strange sensation in her throat. States that sometimes it is difficult to swallow. Patient reports that she has had several imaging studies for this. Patient had a CAT scan at another facility. She had 2 x-rays at our facility. Patient also had a ENT scope her and did not find anything, suspected it was further down and referred her to GI. Patient was admitted at [facility] for this, decided to leave AGAINST MEDICAL ADVICE. Patient states she is here tonight because she tried to drink water and a folic her throat close for a few seconds. Patient denies any drooling.Patient has no other complaints at this time including shortness of breath, chest pain, abdominal pain, nausea or vomiting, headache, or visual changes. - Related Data Home Medications Medication Instructions Recorded Confirmed Omeprazole [PriLOSEC] 20 mg PO HS 07/22/19 11/07/20 buPROPion [Wellbutrin] 75 mg PO BID 07/22/19 11/07/20 lamoTRIgine [LaMICtal] 50 mg PO DAILY 07/22/19 11/07/20 clonazePAM [KlonoPIN] 0.25 mg PO DAILY PRN 05/05/20 11/07/20 Cephalexin [Keflex Susp] 500 mg PO Q8H 11/07/20 11/07/20 Famotidine 40 mg PO DAILY PRN 11/07/20 11/07/20 Mag Carb/Aluminum Hydrox/Algin 30 ml PO Q6H PRN 11/07/20 11/07/20 [Gaviscon Liquid] Allergies Allergy/AdvReac Type Severity Reaction Status Date / Time ciprofloxacin [From Cipro] Allergy Itching Verified 11/17/20 20:11 codeine Allergy Itching Verified 11/17/20 20:11 nitrofurantoin Allergy Itching Verified 11/17/20 20:11 [From Macrobid] Sulfa (Sulfonamide Allergy Itching Verified 11/17/20 20:11 Antibiotics) sulfamethoxazole Allergy Itching Verified 11/17/20 20:11 [From Bactrim] trimethoprim [From Bactrim] Allergy Itching Verified 11/17/20 20:11 phenazopyridine AdvReac Abdominal Verified 11/17/20 20:11 [From Pyridium] Pain Review of Systems ROS Statement: Those systems with pertinent positive or pertinent negative responses have been documented in the HPI. ROS Other: All systems not noted in ROS Statement are negative. Past Medical History Past Medical History: GERD/Reflux Additional Past Medical History / Comment(s): IBS- cholecysectomy no more IBS, History of Any Multi-Drug Resistant Organisms: None Reported Past Surgical History: Appendectomy, Cholecystectomy, Hysterectomy Past Anesthesia/Blood Transfusion Reactions: Postoperative Nausea & Vomiting (PONV) Additional Past Anesthesia/Blood Transfusion Reaction / Comment(s): no hx blood transfusion Past Psychological History: Anxiety, Depression Smoking Status: Never smoker Past Alcohol Use History: None Reported Past Drug Use History: None Reported - Past Family History Mother Family Medical History: No Reported History General Exam Limitations: no limitations General appearance: alert, in no apparent distress Head exam: Present: atraumatic, normocephalic, normal inspection Eye exam: Present: normal appearance ENT exam: Present: normal exam, normal oropharynx (patent,), mucous membranes moist, TM's normal bilaterally, normal external ear exam Neck exam: Present: normal inspection, full ROM. Absent: tenderness, meningismus, lymphadenopathy Respiratory exam: Present: normal lung sounds bilaterally. Absent: respiratory distress, wheezes, rales, rhonchi, stridor Cardiovascular Exam: Present: regular rate, normal rhythm, normal heart sounds. Absent: systolic murmur, diastolic murmur, rubs, gallop, clicks GI/Abdominal exam: Present: soft, normal bowel sounds. Absent: distended, tenderness, guarding, rebound, rigid Neurological exam: Present: alert Course Vital Signs 11/17/20 20:07 Temperature 98.0 F Pulse Rate 100 Respiratory 18 Rate Blood Pressure 135/91 O2 Sat by Pulse 99 Oximetry Medical Decision Making - Medical Decision Making Vitals are stable. Patient is well-appearing. Soft tissue neck x-ray showed a normal neck. No change. Subglottic trachea is normal. Epiglottis is normal. Patient is tolerating by mouth intake at this time. Drinking water without difficulty. No drooling. No tripoding. At this time patient is stable for discharge home to follow up outpatient at her endoscopy in 3 days. She will return here for any worsening symptoms. Disposition Clinical Impression: Dysphagia Disposition: HOME SELF-CARE Condition: Good Instructions (If sedation given, give patient instructions): Dysphagia (ED) Additional Instructions: Please continue your medications for reflux. Please follow-up on Friday at your appointment. If you have any worsening symptoms return to the emergency room. Is patient prescribed a controlled substance at d/c from ED?: No Referrals: Agustin Bradley MD [Primary Care Provider] - 1-2 days Time of Disposition: 21:25
--- NOTE | 2020-11-17 20:56 | XR ---
EXAMINATION TYPE: XR soft tissue neck DATE OF EXAM: 11/17/2020 COMPARISON: 11/07/2020 HISTORY: Dysphagia TECHNIQUE: 2 views FINDINGS: Epiglottis is normal. Prevertebral soft tissues appear normal. The tonsils and adenoids farhat ear normal. The subglottic trachea is normal. Cervical vertebra have normal spacing and alignment. IMPRESSION: Normal cervical soft tissue exam. No change.
[2020-11-17 22:07] VITALS: BP 121/81; PULSE 98; RESP 16
== END 2020-11-17 21:45 | disposition home or self-care (01) ==
LOC: EC 20:02
DX: R13.10 Dysphagia, unspecified (principal); K21.9 Gastro-esophageal reflux disease without esophagitis; F41.9 Anxiety disorder, unspecified; F32.9 Major depressive disorder, single episode, unspecified; Z79.899 Other long term (current) drug therapy; Z88.1 Allergy status to other antibiotic agents; Z88.5 Allergy status to narcotic agent; Z88.2 Allergy status to sulfonamides; Z88.8 Allergy status to other drugs, medicaments and biological substances
CPT/HCPCS: 70360; 99283

== ENCOUNTER → 2020-11-23 | Outpatient (CLI) | payer BC, OTHER ==
--- NOTE | 2020-11-23 13:57 | FL ---
EXAMINATION TYPE: FL barium swallow DATE OF EXAM: 11/23/2020 CLINICAL HISTORY: History of reflux and dysphagia. Lump in throat on recent endoscopy September 22 per patient. TECHNIQUE: A single contrast esophagram is performed utilizing barium only as patient cannot tolerat e air contrast when has had before. A total of 30 seconds of fluoroscopic time was utilized during p rocedure and 59 images saved. COMPARISON: Prior esophagram December 2018 FINDINGS: Exam is suboptimal as patient did not attempt air crystals due to inability to perform in p ast. The esophagus shows satisfactory motility and emptying into the stomach. No abnormal outpouching or diverticulum seen. No evidence of fixed hiatal hernia or stricture noted. No obstructing intralum inal mass clearly seen with particular attention to proximal esophagus at the area of endoscopy robert rn per patient. No significant gastroesophageal reflux was seen during real time performance of this study. IMPRESSION: No obstructing intraluminal mass. If recent outside neck CT becomes available for correlation an addendum will be issued.
== END | disposition home or self-care (01) ==
LOC: RADUSWWP 10:23
PROVIDERS: ATTEND Otolaryngology Facial Plastic Surgery
DX: R13.13 Dysphagia, pharyngeal phase (principal)
CPT/HCPCS: 74220

== ENCOUNTER 2021-01-26 11:54 | Observation (INO) | payer BC, OTHER ==
[2021-01-26] MEDS ORDERED: SODIUM CHLORIDE 0.9% 1,000 ML IV STA (12:20)
[2021-01-26] MEDS ORDERED: LORazepam 2 MG/ML INJ IV STA ×2 (12:42→13:39)
--- NOTE | 2021-01-26 12:45 | ED ---
General Adult HPI - General Chief complaint: Arrhythmia/Palpitations Stated complaint: Tachycardia Time Seen by Provider: 01/26/21 12:07 Source: patient Mode of arrival: ambulatory Limitations: no limitations - History of Present Illness Initial comments: Dictation was produced using [employer] dictation software. please excuse any grammatical, word or spelling errors. Chief Complaint: 30-year-old male presents with palpitations History of Present Illness: Patient is 30-year-old female she denies any significant past medical history. Patient presents to the emergency department for palpitations. He does ago she was started on Augmentin for adenoid issues by her primary care doctor. Shortly after she began having chief complaint of palpitations. She states her heart rate would jump UP to 180. She states she does have some mild chest pain to her left anterior chest. Denies any pleurisy. No history of blood clots. She has no shortness of breath. Denies any constitutional symptoms. Patient states that she has taken Augmentin in the past without any issues. Her last dose of Augmentin was yesterday. She states that her symptoms are still ongoing. She perhaps that this was anxiety so she took anxiolytic medication prior to coming to the ER. The ROS documented in this emergency department record has been reviewed and confirmed by me. Those systems with pertinent positive or negative responses have been documented in the HPI. All other systems are other negative and/or noncontributory. PHYSICAL EXAM: General Impression: Alert and oriented x3, not in acute distress HEENT: Normocephalic atraumatic, extra-ocular movements intact, pupils equal and reactive to light bilaterally, mucous membranes moist. Cardiovascular: Heart regular rate and rhythm Chest: Able to complete full sentences, no retractions, no tachypnea Abdomen: abdomen soft, non-tender, non-distended, no organomegaly Musculoskeletal: Pulses present and equal in all extremities, no peripheral edema Motor: no focal deficits noted Neurological: CN II-XII grossly intact, no focal motor or sensory deficits noted Skin: Intact with no visualized rashes Psych: Anxious ED course: 30-year-old female presents to the emergency department for palpitations. Signs upon arrival shows heart rate 93, rest of vital signs within acceptable limits. At the bedside patient's heart rate is anywhere between 120 and 150. Laboratory evaluation obtained. CBC unremarkable. Coag panel is negative. D- dimer is negative. Metabolic panel and cardiac enzymes negative. No electrolyte derangement. TSH normal. Chest x-ray is nonacute. Patient reevalu ated at bedside case to be significantly tachycardic. At this point there is no clear obvious reason for patient be tachycardic. Patient be admitted to observation with consultation to cardiology. Patient be admitted under the care of Dr. Conde. EKG interpretation: Ventricular rate 102, sinus tachycardia, WV interval 160, QRS 76, QTC 461. No WV prolongation, no QTC prolongation, no ST or T-wave changes noted. No old EKG for comparison. Overall, this EKG is unremarkable - Related Data Home Medications Medication Instructions Recorded Confirmed Omeprazole [PriLOSEC] 20 mg PO HS 07/22/19 01/26/21 lamoTRIgine [LaMICtal] 50 mg PO DAILY 07/22/19 01/26/21 Famotidine [Pepcid] 40 mg PO HS 01/26/21 01/26/21 clonazePAM [Klonopin ODT Wafer] 0.25 mg PO BID PRN 01/26/21 01/26/21 Allergies Allergy/AdvReac Type Severity Reaction Status Date / Time amoxicillin [From Augmentin] Allergy Unknown Verified 01/26/21 12:59 ciprofloxacin [From Cipro] Allergy Itching Verified 01/26/21 12:59 clavulanic acid Allergy Unknown Verified 01/26/21 12:59 [From Augmentin] codeine Allergy Itching Verified 01/26/21 12:59 nitrofurantoin Allergy Itching Verified 01/26/21 12:59 [From Macrobid] prochlorperazine Allergy Unknown Verified 01/26/21 12:59 [From Compazine] Sulfa (Sulfonamide Allergy Itching Verified 01/26/21 12:59 Antibiotics) sulfamethoxazole Allergy Itching Verified 01/26/21 12:59 [From Bactrim] trimethoprim [From Bactrim] Allergy Itching Verified 01/26/21 12:59 phenazopyridine AdvReac Abdominal Verified 01/26/21 12:59 [From Pyridium] Pain Review of Systems ROS Statement: Those systems with pertinent positive or pertinent negative responses have been documented in the HPI. ROS Other: All systems not noted in ROS Statement are negative. Past Medical History Past Medical History: GERD/Reflux Additional Past Medical History / Comment(s): IBS- cholecysectomy no more IBS, History of Any Multi-Drug Resistant Organisms: None Reported Past Surgical History: Appendectomy, Cholecystectomy, Hysterectomy Past Anesthesia/Blood Transfusion Reactions: Postoperative Nausea & Vomiting (PONV) Additional Past Anesthesia/Blood Transfusion Reaction / Comment(s): no hx blood transfusion Past Psychological History: Anxiety, Depression Smoking Status: Never smoker Past Alcohol Use History: None Reported Past Drug Use History: None Reported - Past Family History Mother Family Medical History: No Reported History General Exam Limitations: no limitations Course Vital Signs 01/26/21 12:01 Temperature 98.5 F Pulse Rate 93 Respiratory 18 Rate Blood Pressure 105/69 O2 Sat by Pulse 100 Oximetry Medical Decision Making - Lab Data Result diagrams: 01/26/21 12:10 01/26/21 12:10 Lab Results 01/26/21 01/26/21 01/26/21 Range/Units 12:10 12:10 12:10 WBC 10.0 (3.8-10.6) k/uL RBC 4.81 (3.80-5.40) m/uL Hgb 14.2 (11.4-16.0) gm/dL Hct 41.1 (34.0-46.0) % MCV 85.4 (80.0-100.0) fL MCH 29.5 (25.0-35.0) pg MCHC 34.5 (31.0-37.0) g/dL RDW 13.7 (11.5-15.5) % Plt Count 359 (150-450) k/uL MPV 7.7 Neutrophils % 75 % Lymphocytes % 18 % Monocytes % 5 % Eosinophils % 1 % Basophils % 0 % Neutrophils # 7.5 (1.3-7.7) k/uL Lymphocytes # 1.8 (1.0-4.8) k/uL Monocytes # 0.5 (0-1.0) k/uL Eosinophils # 0.1 (0-0.7) k/uL Basophils # 0.0 (0-0.2) k/uL PT 10.3 (9.0-12.0) sec INR 1.0 (<1.2) APTT 23.6 (22.0-30.0) sec D-Dimer 0.37 (<0.60) mg/L FEU Sodium 139 (137-145) mmol/L Potassium 4.2 (3.5-5.1) mmol/L Chloride 105 (98-107) mmol/L Carbon Dioxide 25 (22-30) mmol/L Anion Gap 9 mmol/L BUN 10 (7-17) mg/dL Creatinine 0.61 (0.52-1.04) mg/dL Est GFR (CKD-EPI)AfAm >90 (>60 ml/min/1.73 sqM) Est GFR (CKD-EPI)NonAf >90 (>60 ml/min/1.73 sqM) Glucose 92 (74-99) mg/dL Calcium 9.7 (8.4-10.2) mg/dL Magnesium 1.9 (1.6-2.3) mg/dL Total Bilirubin 0.4 (0.2-1.3) mg/dL AST 26 (14-36) U/L ALT 28 (4-34) U/L Alkaline Phosphatase 88 (38-126) U/L Troponin I (0.000-0.034) ng/mL Total Protein 7.0 (6.3-8.2) g/dL Albumin 4.4 (3.5-5.0) g/dL TSH 1.700 (0.465-4.680) mIU/L 01/26/21 Range/Units 12:10 WBC (3.8-10.6) k/uL RBC (3.80-5.40) m/uL Hgb (11.4-16.0) gm/dL Hct (34.0-46.0) % MCV (80.0-100.0) fL MCH (25.0-35.0) pg MCHC (31.0-37.0) g/dL RDW (11.5-15.5) % Plt Count (150-450) k/uL MPV Neutrophils % % Lymphocytes % % Monocytes % % Eosinophils % % Basophils % % Neutrophils # (1.3-7.7) k/uL Lymphocytes # (1.0-4.8) k/uL Monocytes # (0-1.0) k/uL Eosinophils # (0-0.7) k/uL Basophils # (0-0.2) k/uL PT (9.0-12.0) sec INR (<1.2) APTT (22.0-30.0) sec D-Dimer (<0.60) mg/L FEU Sodium (137-145) mmol/L Potassium (3.5-5.1) mmol/L Chloride (98-107) mmol/L Carbon Dioxide (22-30) mmol/L Anion Gap mmol/L BUN (7-17) mg/dL Creatinine (0.52-1.04) mg/dL Est GFR (CKD-EPI)AfAm (>60 ml/min/1.73 sqM) Est GFR (CKD-EPI)NonAf (>60 ml/min/1.73 sqM) Glucose (74-99) mg/dL Calcium (8.4-10.2) mg/dL Magnesium (1.6-2.3) mg/dL Total Bilirubin (0.2-1.3) mg/dL AST (14-36) U/L ALT (4-34) U/L Alkaline Phosphatase (38-126) U/L Troponin I <0.012 (0.000-0.034) ng/mL Total Protein (6.3-8.2) g/dL Albumin (3.5-5.0) g/dL TSH (0.465-4.680) mIU/L Disposition Clinical Impression: Tachycardia Disposition: ADMITTED IP TO THIS HOSP Condition: Fair Referrals: Agustin Bradley MD [Primary Care Provider] - 1-2 days
[2021-01-26 12:47] LABS: HCT 41.1 % (34.0-46.0); HGB 14.2 gm/dL (11.4-16.0); MCH 29.5 pg (25.0-35.0); MCHC 34.5 g/dL (31.0-37.0); MCV 85.4 fL (80.0-100.0); Mean Platelet Volume 7.7; Platelet Count 359 k/uL (150-450); RBC 4.81 m/uL (3.80-5.40); RDW 13.7 % (11.5-15.5)
[2021-01-26 12:48] LABS: Basophils % (A) 0 %; Eosinophils # (A) 0.1 k/uL (0-0.7); Eosinophils % (A) 1 %; Lymphocytes # (A) 1.8 k/uL (1.0-4.8); Lymphocytes % (A) 18 %; Monocytes # (A) 0.5 k/uL (0-1.0); Monocytes % (A) 5 %; Neutrophils # (A) 7.5 k/uL (1.3-7.7); Neutrophils % (A) 75 %
[2021-01-26 13:08] LABS: ALT 28 U/L (4-34); AST 26 U/L (14-36); African American GFR (CKD) >90 (>60 ml/min/1.73 sqM); Albumin 4.4 g/dL (3.5-5.0); Alkaline Phosphatase 88 U/L (38-126); Anion Gap 9 mmol/L; Blood Urea Nitrogen 10 mg/dL (7-17); Calcium 9.7 mg/dL (8.4-10.2); Carbon Dioxide 25 mmol/L (22-30); Chloride 105 mmol/L (98-107); Glucose 92 mg/dL (74-99); Magnesium 1.9 mg/dL (1.6-2.3); Non-African American GFR(CKD) >90 (>60 ml/min/1.73 sqM); Potassium 4.2 mmol/L (3.5-5.1); Sodium 139 mmol/L (137-145); Total Bilirubin 0.4 mg/dL (0.2-1.3)
[2021-01-26 13:11] LABS: D-Dimer 0.37 mg/L FEU (<0.60); Partial Thromboplastin Time 23.6 sec (22.0-30.0); Prothrombin Time 10.3 sec (9.0-12.0)
--- NOTE | 2021-01-26 13:17 | XR ---
EXAMINATION TYPE: XR chest 1V portable DATE OF EXAM: 01/26/2021 COMPARISON: Chest x-ray 05/11/2020 HISTORY: Arrhythmia TECHNIQUE: Single frontal view of the chest is obtained. FINDINGS: There is no focal air space opacity, pleural effusion, or pneumothorax seen. The cardiac silhouette size is within normal limits. Exam is expiratory and the patient is rotated, there are o verlying leads and artifacts The osseous structures are intact. IMPRESSION: No acute process.
[2021-01-26] MEDS ORDERED: NALOXONE 0.4 MG/ML 1 ML VIAL IV PRN (13:41)
[2021-01-26] MEDS ORDERED: SODIUM CHLORIDE 0.9% 1,000 ML IV SCH (13:45)
[2021-01-26 14:19] LABS: Amphetamine Screen,Urine Not Detected (NotDetected); Barbiturate Screen,Urine Not Detected (NotDetected); Benzodiazepines Screen,Urine Not Detected (NotDetected); Cocaine Screen,Urine Not Detected (NotDetected); Methadone Screen, Urine Not Detected (NotDetected); Opiate Screen,Urine Not Detected (NotDetected); Oxycodone Screen, Urine Not Detected (NotDetected); Phencyclidine Screen,Urine Not Detected (NotDetected); Tricyclic Antidepressant,Urine Not Detected (NotDetected); Urn Cannabinoid Scrn Not Detected (NotDetected)
[2021-01-26] MEDS ORDERED: clonazePAM 0.5 MG TAB PO PRN (16:44)
--- NOTE | 2021-01-26 17:11 | P.HPIM ---
History of Present Illness H&P Date: 01/26/21 Chief Complaint: Palpitation History of presenting complaint: This is a pleasant 30-year-old patient, follows with Dr. Bradley. Chronic stable medical conditions include, GERD, anxiety, depression. Patient of the cuboid seen her family doctor what appeared to be a problem with her glands was given Augmentin. She took 2 days of this and had some itching. The family doct or did communicate to her that probably this is not through Augmentin and patient is resume the same medication last night. She noticed she started having palpitations. No fever no chills. Patient's had been having trouble swallowing for some time and has seen her mri special procedures technologist also been down to [facility]. No specific diagnosis has been found. Patient feels her anxiety somewhat uncontrolled. Appetite is slightly down. No fever no chills. Patient has not been sleeping well Review of systems: GEN.: Tired EYES: None HEENT: None NECK: None RESPIRATORY: None CARDIOVASCULAR: As above GASTROINTESTINAL: None GENITOURINARY: None MUSCULOSKELETAL: None LYMPHATICS: None HEMATOLOGICAL: None PSYCHIATRY: Anxious NEUROLOGICAL: Doesn't sleep well Past medical history to include: GERD, anxiety, depression Social history: Lives with the and kids. No alcoholsmoking. Denies use of any recreational drugs. Physical examination: VITAL SIGNS: 98.5, 120, 18, 116/80, 100% on room air GENERAL: BMI 32, laying in bed, slightly anxious. EYES: Pupils equal. Conjunctiva normal. HEENT: External appearance of nose and ears normal, oral cavity grossly normal. NECK: JVD not raised; masses not palpable. HEART: First and second heart sounds are normal; no edema. LUNGS: Respiratory rate normal; clear to auscultation. ABDOMEN: Soft, nontender, liver spleen not palpable, no masses palpable. PSYCH: Alert and oriented x3; mood and affect anxiousl. NEUROLOGICAL: Cranial nerves grossly intact; no facial asymmetry, power and sensation grossly intact. LYMPHATICS: No lymph nodes palpable in the axilla and neck INVESTIGATIONS, reviewed in the clinical context: WBC 10 hemoglobin 14.2 platelets 359 d-dimer 0.37 potassium 4.2 creatinine 0.61 Troponin I less than 0.012 Urine hCG negative Urine drug screen negative Coronavirus [PCR] not detected EKG tracing personally reviewed by me-normal sinus rhythm, with a rate of 12 Chest x-ray film personally reviewed by me-lungs clear Assessment and plan: -Palpitations, patient has sinus tachycardia and EKG. No obvious precipitating infectious factor this point. Anxiety could be a contribution Telemetry. Cardiology consultation -Anxiety disorder, uncontrolled -Obesity BMI 32 Weight loss measures and follow with PCP -GERD On PPI -Chronic dysphagia, being worked up as an outpatient -Insomnia secondary to medical problems add melatonin Placed on telemetry. Add melatonin. Cardiogenic consultation. Past Medical History Past Medical History: GERD/Reflux Additional Past Medical History / Comment(s): IBS- cholecysectomy no more IBS, History of Any Multi-Drug Resistant Organisms: None Reported Past Surgical History: Appendectomy, Cholecystectomy, Hysterectomy Past Anesthesia/Blood Transfusion Reactions: Postoperative Nausea & Vomiting (PONV) Additional Past Anesthesia/Blood Transfusion Reaction / Comment(s): no hx blood transfusion Past Psychological History: Anxiety, Depression Smoking Status: Never smoker Past Alcohol Use History: None Reported Past Drug Use History: None Reported - Past Family History Mother Family Medical History: No Reported History Medications and Allergies Home Medications Medication Instructions Recorded Confirmed Type Omeprazole [PriLOSEC] 20 mg PO HS 07/22/19 01/26/21 History lamoTRIgine [LaMICtal] 50 mg PO DAILY 07/22/19 01/26/21 History Famotidine [Pepcid] 40 mg PO HS 01/26/21 01/26/21 History clonazePAM [Klonopin ODT Wafer] 0.25 mg PO BID PRN 01/26/21 01/26/21 History Allergies Allergy/AdvReac Type Severity Reaction Status Date / Time amoxicillin [From Augmentin] Allergy Unknown Verified 01/26/21 12:59 ciprofloxacin [From Cipro] Allergy Itching Verified 01/26/21 12:59 clavulanic acid Allergy Unknown Verified 01/26/21 12:59 [From Augmentin] codeine Allergy Itching Verified 01/26/21 12:59 nitrofurantoin Allergy Itching Verified 01/26/21 12:59 [From Macrobid] prochlorperazine Allergy Unknown Verified 01/26/21 12:59 [From Compazine] Sulfa (Sulfonamide Allergy Itching Verified 01/26/21 12:59 Antibiotics) sulfamethoxazole Allergy Itching Verified 01/26/21 12:59 [From Bactrim] trimethoprim [From Bactrim] Allergy Itching Verified 01/26/21 12:59 phenazopyridine AdvReac Abdominal Verified 01/26/21 12:59 [From Pyridium] Pain Physical Exam Vitals: Vital Signs Temp Pulse Resp BP Pulse Ox 01/26/21 16:28 116 H 18 128/78 98 01/26/21 14:10 128 H 18 116/80 100 01/26/21 12:01 98.5 F 93 18 105/69 100 Intake and Output 01/26/21 01/26/21 01/26/21 06:59 14:59 22:59 Other: Weight 79.379 kg Results CBC & Chem 7: 01/26/21 12:10 01/26/21 12:10
[2021-01-26] MEDS: DILTIAZEM ORAL 30 MG TAB PO SCH (20:07)
[2021-01-26] MEDS ORDERED: FAMOTIDINE 20 MG TAB PO SCH (21:00)
[2021-01-26] MEDS ORDERED: MELATONIN 1 MG TAB PO SCH (21:00)
[2021-01-27] MEDS ORDERED: PANTOPRAZOLE 40 MG TABLET PO SCH ×2 (07:30→21:00)
[2021-01-27 07:48] VITALS: TEMP 97.9
[2021-01-27 07:55] VITALS: BMI 32.0
[2021-01-27] MEDS ORDERED: lamoTRIgine 25 MG TAB PO SCH (09:00)
[2021-01-27] MEDS: DILTIAZEM ORAL 30 MG TAB PO SCH (09:08)
--- NOTE | 2021-01-27 09:31 | P.CRDCN ---
History of Present Illness Consult date: 01/27/21 History of present illness: HISTORY OF PRESENT ILLNESS: This is a 30-year-old female with a past medical history significant for anxiety, GERD, and recent diagnosis of Sara's approximately one month ago. Patient does not follow with a physics technician and denies any previous cardiac history. Patient has Cardizem listed as a home medication. However patient states she has never heard of this medication and does not take it on an outpatient basis and has never taken in the past. We have been asked to see the patient in consultation for tachycardia. Patient examined at the bedside. Patient states over the past 2 days she has been having palpitations at home. Patient denies any shortness of breath. She denies chest pain or pressure. Denies dizziness or lightheadedness. Patient states she takes Klonopin at home which usually helps with her anxiety and will bring her heart rate down. However she states over the past 2 days the Klonopin does not seem to be helping. She does feel her anxiety is worse than usual. Patient states she was diagnosed with Sara's approximately one month ago. Patient states "I was told it was not bad enough yet that they need to do anything about it". Patient is unsure if she has any family history of coronary artery disease. Patient denies any history of smoking, marijuana or drug use, or alcohol use. She reports rare caffeine intake. EKG reveals sinus tachycardia with no signs of acute ischemia Chest xray negative for acute process Laboratory data: WBC 10.0. Hemoglobin 14.2. Platelet count 359. D-dimer 0.37. Sodium 139. Potassium 4.2. BUN 10. Creatinine 0.61. Troponin negative 1. TSH 1.7 Current home cardiac medications include none. Patient has Cardizem listed as a home medication. However she is adamant that she does not take this at home and never has. REVIEW OF SYSTEMS: At the time of my exam: CONSTITUTIONAL: Denies fever or chills. Reports anxiety. HEENT: Denies blurred vision, vision changes, or eye pain. Denies hemoptysis CARDIOVASCULAR: Denies chest pain. Denies orthopnea. Denies PND. + palpitations RESPIRATORY: Denies shortness of breath. GASTROINTESTINAL: Denies abdominal pain. Denies nausea or vomiting. HEMATOLOGIC: Denies bleeding disorders. GENITOURINARY: Denies any blood in urine. SKIN: Denies pruitis. Denies rash. PHYSICAL EXAM: VITAL SIGNS: Reviewed. GENERAL: Well-developed in no acute distress. Patient appears anxious at the time of examination HEENT: Head is normocephalic. Pupils are equal, round. Sclerae anicteric. Mucous membranes of the mouth are moist. Neck supple. No JVD or thyromegaly LUNGS: Respirations even and unlabored. Lungs essentially clear to auscultation bilaterally. HEART: Tachycardic. Regular rate and rhythm. S1 and S2 heard. ABDOMEN: Soft. Nondistended. Nontender. EXTREMITIES: Normal range of motion. No clubbing or cyanosis. Peripheral pul ses intact. No lower extremity edema NEUROLOGIC: Awake and alert. Oriented x 3. ASSESSMENT: Palpitations Sinus tachycardia Anxiety, uncontrolled Recent diagnosis of Sara's PLAN: Continue telemetry monitoring Begin metoprolol 25 mg twice a day Obtain 2-D echo to assess cardiac structure and function Patient may be discharged home today from a cardiac standpoint We will sign off. Please reconsult if needed. Nurse practitioner note has been reviewed by physician. Signing provider agrees with the documented findings, assessment, and plan of care. Past Medical History Past Medical History: GERD/Reflux Additional Past Medical History / Comment(s): IBS- cholecysectomy no more IBS. Currently pt. states that they are looking into her throat, because she has had issues swallowing and feels that food gets stuck in her throat. History of Any Multi-Drug Resistant Organisms: None Reported Past Surgical History: Appendectomy, Cholecystectomy, Hysterectomy Past Anesthesia/Blood Transfusion Reactions: Postoperative Nausea & Vomiting (PONV) Additional Past Anesthesia/Blood Transfusion Reaction / Comment(s): no hx blood transfusion Past Psychological History: Anxiety, Depression Smoking Status: Never smoker Past Alcohol Use History: None Reported Past Drug Use History: None Reported - Past Family History Mother Family Medical History: No Reported History Medications and Allergies Home Medications Medication Instructions Recorded Confirmed Type Omeprazole [PriLOSEC] 20 mg PO HS 07/22/19 01/26/21 History lamoTRIgine [LaMICtal] 50 mg PO DAILY 07/22/19 01/26/21 History Famotidine [Pepcid] 40 mg PO HS 01/26/21 01/26/21 History clonazePAM [Klonopin ODT Wafer] 0.25 mg PO BID PRN 01/26/21 01/26/21 History Melatonin 1 mg PO HS tab 01/27/21 Rx Metoprolol Tartrate [Lopressor] 25 mg PO BID #60 tab 01/27/21 Rx Allergies Allergy/AdvReac Type Severity Reaction Status Date / Time amoxicillin [From Augmentin] Allergy Unknown Verified 01/26/21 12:59 ciprofloxacin [From Cipro] Allergy Itching Verified 01/26/21 12:59 clavulanic acid Allergy Unknown Verified 01/26/21 12:59 [From Augmentin] codeine Allergy Itching Verified 01/26/21 12:59 nitrofurantoin Allergy Itching Verified 01/26/21 12:59 [From Macrobid] prochlorperazine Allergy Unknown Verified 01/26/21 12:59 [From Compazine] Sulfa (Sulfonamide Allergy Itching Verified 01/26/21 12:59 Antibiotics) sulfamethoxazole Allergy Itching Verified 01/26/21 12:59 [From Bactrim] trimethoprim [From Bactrim] Allergy Itching Verified 01/26/21 12:59 phenazopyridine AdvReac Abdominal Verified 01/26/21 12:59 [From Pyridium] Pain Physical Exam Vitals: Vital Signs Temp Pulse Pulse Resp BP BP Pulse Ox 01/27/21 07:00 97.9 F 67 18 90/59 98 01/27/21 01:53 97.7 F 81 17 98/60 98 01/27/21 01:43 18 01/26/21 20:00 18 01/26/21 19:45 98.7 F 91 18 99/67 97 01/26/21 18:33 99.4 F 108 H 16 113/74 97 01/26/21 18:00 105 H 18 108/70 94 L 01/26/21 16:28 116 H 18 128/78 98 01/26/21 14:10 128 H 18 116/80 100 01/26/21 12:01 98.5 F 93 18 105/69 100 Intake and Output 01/26/21 01/27/21 01/27/21 22:59 06:59 14:59 Other: Voiding Method Toilet Toilet # Voids 1 1 Weight 79.379 kg 79.379 kg Results 01/26/21 12:10 01/26/21 12:10 Cardiac Enzymes 01/26/21 01/26/21 Range/Units 12:10 12:10 AST 26 (14-36) U/L Troponin I <0.012 (0.000-0.034) ng/mL Coagulation 01/26/21 Range/Units 12:10 PT 10.3 (9.0-12.0) sec APTT 23.6 (22.0-30.0) sec CBC 01/26/21 Range/Units 12:10 WBC 10.0 (3.8-10.6) k/uL RBC 4.81 (3.80-5.40) m/uL Hgb 14.2 (11.4-16.0) gm/dL Hct 41.1 (34.0-46.0) % Plt Count 359 (150-450) k/uL Comprehensive Metabolic Panel 01/26/21 Range/Units 12:10 Sodium 139 (137-145) mmol/L Potassium 4.2 (3.5-5.1) mmol/L Chloride 105 (98-107) mmol/L Carbon Dioxide 25 (22-30) mmol/L BUN 10 (7-17) mg/dL Creatinine 0.61 (0.52-1.04) mg/dL Glucose 92 (74-99) mg/dL Calcium 9.7 (8.4-10.2) mg/dL AST 26 (14-36) U/L ALT 28 (4-34) U/L Alkaline Phosphatase 88 (38-126) U/L Total Protein 7.0 (6.3-8.2) g/dL Albumin 4.4 (3.5-5.0) g/dL Current Medications Generic Name Dose Route Start Last Admin Trade Name Freq PRN Reason Stop Dose Admin Clonazepam 0.25 mg 01/26/21 16:44 Clonazepam 0.5 Mg Tab PO BID PRN Anxiety Famotidine 40 mg 01/26/21 21:00 01/26/21 20:07 Famotidine 20 Mg Tab PO 40 mg HS SAMREEN Administration Sodium Chloride 1,000 mls @ 20 mls/hr 01/26/21 13:45 01/26/21 14:07 Saline 0.9% IV 20 mls/hr .Q24H SAMREEN Administration Lamotrigine 50 mg 01/27/21 09:00 01/27/21 09:09 Lamotrigine 25 Mg Tab PO 50 mg DAILY SAMREEN Administration Melatonin 1 mg 01/26/21 21:00 01/26/21 20:13 Melatonin 1 Mg Tab PO Not Given HS SAMREEN Metoprolol Tartrate 25 mg 01/27/21 21:00 Metoprolol Tartrate 25 Mg Tab PO BID SAMREEN Naloxone HCl 0.2 mg 01/26/21 13:41 Naloxone 0.4 Mg/Ml 1 Ml Vial IV Q2M PRN Opioid Reversal Pantoprazole Sodium 40 mg 01/27/21 21:00 Pantoprazole 40 Mg Tablet PO 2100 SAMREEN Intake and Output 01/26/21 01/27/21 01/27/21 22:59 06:59 14:59 Other: Voiding Method Toilet Toilet # Voids 1 1 Weight 79.379 kg 79.379 kg Patient Weight 01/28/21 06:59 Weight 79.379 kg 01/26/21 12:10 01/26/21 12:10
[2021-01-27 12:33] VITALS: BP 119/77; PULSE 86; RESP 14
[2021-01-27] MEDS ORDERED: METOPROLOL TARTRATE 25 MG TAB PO SCH (21:00)
--- NOTE | 2021-01-27 21:08 | P.DS ---
Providers Date of admission: 01/26/21 13:42 Expected date of discharge: 01/27/21 Attending physician: Balta Conde Primary care physician: Agustin Bradley [facility] Course: Chief Complaint: Palpitation History of presenting complaint: This is a pleasant 30-year-old patient, follows with Dr. Bradley. Chronic stable medical conditions include, GERD, anxiety, depression. Patient of the cuboid seen her family doctor what appeared to be a problem with her glands was given Augmentin. She took 2 days of this and had some itching. The family doctor did communicate to her that probably this is not through Augmentin and patient is resume the same medication last night. She noticed she started having palpitations. No fever no chills. Patient's had been having trouble swallowing for some time and has seen her sales and merchandising representative also been down to [facility]. No specific diagnosis has been found. Patient feels her anxiety somewhat uncontrolled. Appetite is slightly down. No fever no chills. Patient has not been sleeping well Reason for sinus tachycardia. Questionable from anxiety. Patient put on Cardizem overnight to which she responded well. Today: Seen by cardiology. Changed over to beta nicki. Otherwise patient feeling well. Dr. Dobson spoke to the patient at length. Consultation: Dr. EDY Dobson from cardiology Past medical history to include: GERD, anxiety, depression Social history: Lives with the and kids. No alcoholsmoking. Denies use of any recreational drugs. Physical examination: VITAL SIGNS: 97.9, 86, 14, 119/77, 98% on room air GENERAL: BMI 32, laying in bed, slightly anxious. EYES: Pupils equal. Conjunctiva normal. HEENT: External appearance of nose and ears normal, oral cavity grossly normal. NECK: JVD not raised; masses not palpable. HEART: First and second heart sounds are normal; no edema. LUNGS: Respiratory rate normal; clear to auscultation. ABDOMEN: Soft, nontender, liver spleen not palpable, no masses palpable. PSYCH: Alert and oriented x3; mood and affect anxiousl. INVESTIGATIONS, reviewed in the clinical context: WBC 10 hemoglobin 14.2 platelets 359 d-dimer 0.37 potassium 4.2 creatinine 0.61 TSH 1.7 Troponin I less than 0.012 Urine hCG negative Urine drug screen negative Coronavirus [PCR] not detected EKG tracing personally reviewed by me-normal sinus rhythm, with a rate of 12 Chest x-ray film personally reviewed by me-lungs clear Assessment and plan: -Palpitations, patient has sinus tachycardia on EKG. No obvious precipitating infectious factor this point. Anxiety could be a contribution Telemetry. Cardiology consultation-DC on Lopressor 25 mg twice a day -Anxiety disorder, uncontrolled Patient does have Klonopin. To follow-up with PCP -Obesity BMI 32 Weight loss measures and follow with PCP -GERD On PPI -Chronic dysphagia, being worked up as an outpatient -Insomnia secondary to medical problems add melatonin Disposition: Home Patient Condition at Discharge: Good Plan - Discharge Summary Discharge Rx Participant: Yes New Discharge Prescriptions: New Metoprolol Tartrate [Lopressor] 25 mg PO BID #60 tab Melatonin 1 mg PO HS tab Continue lamoTRIgine [LaMICtal] 50 mg PO DAILY Omeprazole [PriLOSEC] 20 mg PO HS clonazePAM [Klonopin ODT Wafer] 0.25 mg PO BID PRN PRN Reason: Anxiety Famotidine [Pepcid] 40 mg PO HS Discharge Medication List Omeprazole [PriLOSEC] 20 mg PO HS 07/22/19 [History] lamoTRIgine [LaMICtal] 50 mg PO DAILY 07/22/19 [History] Famotidine [Pepcid] 40 mg PO HS 01/26/21 [History] clonazePAM [Klonopin ODT Wafer] 0.25 mg PO BID PRN 01/26/21 [History] Melatonin 1 mg PO HS tab 01/27/21 [Rx] Metoprolol Tartrate [Lopressor] 25 mg PO BID #60 tab 01/27/21 [Rx] Follow up Appointment(s)/Referral(s): Agustin Bradley MD [Primary Care Provider] - 1-2 days Patient Instructions/Handouts: Tachycardia (ED) Activity/Diet/Wound Care/Special Instructions: activity as tolerated heart healthy diet Discharge Disposition: HOME SELF-CARE
--- NOTE | 2021-01-28 07:00 | ECHOF ---
Referral Reason:Assess LV function MEASUREMENTS -------- HEIGHT: 157.5 cm WEIGHT: 79.4 kg BP: RVIDd: 2.4 cm (< 3.3) IVSd: 1.1 cm (0.6 - 1.1) LVIDd: 3.0 cm (3.9 - 5.3) LVPWd: 1.4 cm (0.6 - 1.1) IVSs: 1.5 cm LVIDs: 1.9 cm LVPWs: 1.7 cm LAESV Index (A-L): 16.37 ml/m Ao Diam: 2.8 cm (2.0 - 3.7) AV Cusp: 1.9 cm (1.5 - 2.6) LA Diam: 3.6 cm (2.7 - 3.8) MV EXCURSION: 17.007 mm (> 18.000) MV EF SLOPE: 109 mm/s (70 - 150) EPSS: 0.8 cm MV E Aniceto: 0.67 m/s MV DecT: 203 ms MV A Aniceto: 0.59 m/s MV E/A Ratio: 1.14 RAP: 5.00 mmHg RVSP: 20.05 mmHg FINDINGS -------- This was a technically good study. The left ventricular size is normal. Left ventricular wall thickness is normal. Overall left vent ricular systolic function is normal with, an EF between 55 - 60 %. The diastolic filling pattern is normal for the age of the patient 6.94. The right ventricle is normal in size. The left atrial size is normal. Normal LA size by volume 22+/-6 ml/m2. The right atrial size is normal. Interatrial and interventricular septum intact. The aortic valve is trileaflet and appears structurally normal. The mitral valve is normal. Mild mitral regurgitation is present. Cannot exclude mitral valve pro lapse. The tricuspid valve appears structurally normal. Mild tricuspid regurgitation present. Right vent ricular systolic pressure is normal at < 35 mmHg. There is no pulmonic regurgitation present. The aortic root size is normal. Normal inferior vena cava with normal inspiratory collapse consistent with estimated right atrial pre ssure of 5 mmHg. There is no pericardial effusion. CONCLUSIONS -------- 1. The left ventricular size is normal. 2. Left ventricular wall thickness is normal. 3. Overall left ventricular systolic function is normal with, an EF between 55 - 60 %. 4. The diastolic filling pattern is normal for the age of the patient 6.94 5. Mild mitral regurgitation is present. 6. Cannot exclude mitral valve prolapse. 7. Mild tricuspid regurgitation present. 8. There is no pericardial effusion. [employer] RECREATION DIRECTOR: Julieta Walker RDCS
== END 2021-01-27 15:13 | disposition home or self-care (01) ==
LOC: EC 11:54 → 6NMEDSUR 13:42
PROVIDERS: ADMIT Hospitalist; ATTEND Hospitalist
DX: R00.0 Tachycardia, unspecified (principal); K21.9 Gastro-esophageal reflux disease without esophagitis; F41.9 Anxiety disorder, unspecified; E06.3 Autoimmune thyroiditis; R13.10 Dysphagia, unspecified; G47.00 Insomnia, unspecified; F32.9 Major depressive disorder, single episode, unspecified; R07.9 Chest pain, unspecified; E66.9 Obesity, unspecified; Z68.32 Body mass index [BMI] 32.0-32.9, adult; Z20.822 Contact with and (suspected) exposure to COVID-19; Z79.899 Other long term (current) drug therapy; Z88.1 Allergy status to other antibiotic agents; Z88.5 Allergy status to narcotic agent; Z88.0 Allergy status to penicillin; Z88.2 Allergy status to sulfonamides; Z88.8 Allergy status to other drugs, medicaments and biological substances; Z90.710 Acquired absence of both cervix and uterus; Z90.49 Acquired absence of other specified parts of digestive tract; Z87.19 Personal history of other diseases of the digestive system
CPT/HCPCS: 93005 ×2; 99285; 36415; 94760; 93306; 85379; 80053; 83735; 84443; 84484; 85025; 85610; 85730; 81025; 80306; 87635; 71045; G0378 ×2; J2060

== ENCOUNTER 2021-02-19 08:55 | Day surgery (SDC) | payer BC, OTHER ==
[2021-02-15 14:40] VITALS: BMI 33.0
--- NOTE | 2021-02-19 07:40 | P.GSHP ---
History of Present Illness H&P Date: 02/19/21 CHIEF COMPLAINT: GERD HISTORY OF PRESENT ILLNESS: The patient is a 30-year-old female who presents reports gastroesophageal reflux disease. Upper endoscopy was offered for further evaluation and management. PAST MEDICAL HISTORY: Please see list. PAST SURGICAL HISTORY: Please see list. MEDICATIONS: Please see list. ALLERGIES: Please see list. SOCIAL HISTORY: No illicit drug use FAMILY HISTORY: No reports of Crohn disease or ulcerative colitis. REVIEW OF ORGAN SYSTEMS: CONSTITUTIONAL: No reports of fevers or chills. GI: Denies any blood in stools or constipation. PHYSICAL EXAM: VITAL SIGNS: Stable GENERAL: Well-developed and pleasant in no acute distress. HEENT: No scleral icterus. Extraocular movements grossly intact. Moist buccal mucosa. NECK: Supple without lymphadenopathy. CHEST: Unlabored respirations. Equal bilateral excursions. CARDIOVASCULAR: Regular rate and rhythm. Distal 2+ pulses. ABDOMEN: Soft, nondistended. MUSCULOSKELETAL: No clubbing, cyanosis, or edema. ASSESSMENT: 1. Gastroesophageal reflux disease PLAN: 1. Recommend proceeding with an upper endoscopy Past Medical History Past Medical History: GERD/Reflux Additional Past Medical History / Comment(s): IBS-resolved after cholecysectomy. c/o issues swallowing, feels food gets stuck in her throat. Hx tachycardia, poss R/T anxiety History of Any Multi-Drug Resistant Organisms: None Reported Past Surgical History: Appendectomy, Cholecystectomy, Hysterectomy Additional Past Surgical History / Comment(s): EGD x3. [place] teeth Past Anesthesia/Blood Transfusion Reactions: Postoperative Nausea & Vomiting (PONV) Additional Past Anesthesia/Blood Transfusion Reaction / Comment(s): Awakens in panic w/ General Anesthesia. (no hx blood transfusion) Smoking Status: Never smoker - Past Family History Mother Family Medical History: No Reported History Medications and Allergies Home Medications Medication Instructions Recorded Confirmed Type Omeprazole [PriLOSEC] 20 mg PO HS 07/22/19 02/15/21 History lamoTRIgine [LaMICtal] 50 mg PO DAILY 07/22/19 02/15/21 History Famotidine [Pepcid] 40 mg PO HS 01/26/21 02/15/21 History clonazePAM [Klonopin ODT Wafer] 0.25 mg PO BID PRN 01/26/21 02/15/21 History Children's Tylenol Powder 3 packet PO DIRECTED PRN 02/15/21 History Allergies Allergy/AdvReac Type Severity Reaction Status Date / Time amoxicillin [From Augmentin] Allergy Unknown Verified 02/15/21 14:23 ciprofloxacin [From Cipro] Allergy Itching Verified 02/15/21 14:23 clavulanic acid Allergy Unknown Verified 02/15/21 14:23 [From Augmentin] codeine Allergy Itching Verified 02/15/21 14:23 nitrofurantoin Allergy Itching Verified 02/15/21 14:23 [From Macrobid] prochlorperazine Allergy Unknown Verified 02/15/21 14:23 [From Compazine] Sulfa (Sulfonamide Allergy Itching Verified 02/15/21 14:23 Antibiotics) sulfamethoxazole Allergy Itching Verified 02/15/21 14:23 [From Bactrim] trimethoprim [From Bactrim] Allergy Itching Verified 02/15/21 14:23 phenazopyridine AdvReac Abdominal Verified 02/15/21 14:23 [From Pyridium] Pain
[~2021-02-19 08:55] MED LIST changes: -HEPARIN SODIUM,PORCINE 5,000 UNIT/ML 1 ML VIAL SQ ONE; +LIDOCAINE 1% (10MG/ML) FOR IV START INTRADERMA PRN; -MIDAZOLAM 2 MG/2 ML VIAL IV PRN; -ONDANSETRON 4 MG/2 ML VIAL IVP ONE; -SCOPOLAMINE 1.5MG/72HR PATCH TRANSDERM ONE
[2021-02-19 09:18] VITALS: TEMP 97.8
[2021-02-19] MEDS ORDERED: ONDANSETRON 4 MG/2 ML VIAL ONE (09:59)
[2021-02-19] MEDS ORDERED: LIDOCAINE 1% INJ 10MG/ML (20 ML MDV) ONE (09:59)
[2021-02-19] MEDS ORDERED: PROPOFOL 10 MG/ML 20 ML VIAL IV ONE (09:59)
--- NOTE | 2021-02-19 10:32 | P.PCN ---
Date of Procedure: 02/19/21 Description of Procedure: PREOPERATIVE DIAGNOSIS: Gastroesophageal reflux disease Dysphagia Upper esophageal dysmotility POSTOPERATIVE DIAGNOSIS: Upper esophageal stenosis Gastroesophageal reflux disease Dysphagia Upper esophageal dysmotility OPERATION: Esophagogastroduodenoscopy with rigid dilator over the guidewire 51 Fr with dilation Esophagogastroduodenoscopy with cold forceps biopsies stomach/antrum SURGEON: Arely Orellana MD ANESTHESIA: MAC. INDICATIONS: The patient is a 30-year-old female who presents with a history of gastroesophageal reflux disease with abdominal pain. Benefits and risks of the procedure were described. Informed consent was obtained. DESCRIPTION: The patient was brought into the endoscopy suite and laid in the left lateral decubitus position. After a timeout was confirmed, the procedure was initiated. An Olympus gastroscope was passed into the posterior oropharynx where an upper esophageal stenosis was identified. No larger or abnormal tumors were identified along the posterior oropharynx. The scope was passed down to the distal esophagus. To address the upper esophageal stenosis, rigid dilator over guidewire was selected. Next using an Fijian rigid dilator, a guidewire was placed through the gastroscope. Next the scope was withdrawn. A 51-Turkish rigid Fijian dilator was passed carefully along the posterior oropharynx to 45 cm and left in place for 2-3 minutes stretch. The dilator was withdrawn including the guidewire. The scope was reentered along the posterior oropharynx with no findings of full- thickness tear of the upper esophageal sphincter. Additional findings below. Within the stomach, bile reflux gastritis was identified along the body of the stomach with cold forceps biopsies obtained. The lower esophageal valve was evaluated with Hill grade 3 lower esophageal valve. LA grade B erosive esophagitis was identified. No full-thickness injury was encountered. The GI tract was desufflated. The patient tolerated the procedure well. FINDINGS: Upper esophageal stenosis dilated 51-Turkish rigid dilator Diaphragmatic hiatus at 36 cm from the incisors Squamocolumnar junction 35 cm from the incisors. Bile reflux gastritis along the gastric body and fundus cold forceps biopsies obtained LA grade B erosive esophagitis Hill grade 3 lower esophageal valve. RECOMMENDATIONS: Upper endoscopy as needed Plan - Discharge Summary Discharge Rx Participant: No New Discharge Prescriptions: Continue lamoTRIgine [LaMICtal] 50 mg PO DAILY Omeprazole [PriLOSEC] 20 mg PO HS clonazePAM [Klonopin ODT Wafer] 0.25 mg PO BID PRN PRN Reason: Anxiety Famotidine [Pepcid] 40 mg PO HS Children's Tylenol Powder 3 packet PO DIRECTED PRN PRN Reason: Pain Discharge Medication List Omeprazole [PriLOSEC] 20 mg PO HS 07/22/19 [History] lamoTRIgine [LaMICtal] 50 mg PO DAILY 07/22/19 [History] Famotidine [Pepcid] 40 mg PO HS 01/26/21 [History] clonazePAM [Klonopin ODT Wafer] 0.25 mg PO BID PRN 01/26/21 [History] Children's Tylenol Powder 3 packet PO DIRECTED PRN 02/15/21 [History] Follow up Appointment(s)/Referral(s): Arely Orellana MD [STAFF PHYSICIAN] - 03/13/21 Patient Instructions/Handouts: Esophageal Dilation (DC) Activity/Diet/Wound Care/Special Instructions: Diet as tolerated Discharge Disposition: HOME SELF-CARE
[2021-02-19 10:38] VITALS: BP 103/62; PULSE 72; RESP 16
== END 2021-02-19 11:22 | disposition home or self-care (01) ==
LOC: ORWHC2ENDO 08:55
PROVIDERS: ATTEND Surgery Plastic and Reconstructive Surgery
DX: K21.9 Gastro-esophageal reflux disease without esophagitis (principal); R13.10 Dysphagia, unspecified; K22.2 Esophageal obstruction; K29.50 Unspecified chronic gastritis without bleeding; Z79.899 Other long term (current) drug therapy; F41.9 Anxiety disorder, unspecified; F32.9 Major depressive disorder, single episode, unspecified; E06.3 Autoimmune thyroiditis; K58.9 Irritable bowel syndrome, unspecified
CPT/HCPCS: 88305; 43239; 43249; J2405; J2001; J2704

== ENCOUNTER 2021-06-15 00:49 | Emergency (ER) | payer BC, OTHER ==
--- NOTE | 2021-06-15 01:27 | ED ---
General Adult HPI - General Chief complaint: Vaginal Bleeding Stated complaint: Vaginal Bleeding Time Seen by Provider: 06/15/21 01:13 Source: patient, RN notes reviewed, old records reviewed Mode of arrival: ambulatory Limitations: no limitations - History of Present Illness Initial comments: 31-year-old female presents to the emergency room with complaints of vaginal bleeding that started at 11:00 this evening. Patient states that she had a total hysterectomy 2 years ago. She normally does not have any vaginal bleeding. She does have a history of ovarian cysts. She denies any nausea vomiting or diarrhea. She denies any fevers. She states that she has had an increase in urination over the past 2 days and complains of pelvic pressure with urination. She has history of appendectomy, cholecystectomy and anxiety. -: hour(s) (2) Location: pelvis (Right lower quadrant) Radiation: non-radiation Consistency: intermittent Improves with: none Worsens with: none Associated Symptoms: other (Vaginal bleeding) Treatments Prior to Arrival: none - Related Data Home Medications Medication Instructions Recorded Confirmed Omeprazole [PriLOSEC] 20 mg PO HS 07/22/19 02/19/21 lamoTRIgine [LaMICtal] 50 mg PO DAILY 07/22/19 02/19/21 Famotidine [Pepcid] 40 mg PO HS 01/26/21 02/19/21 clonazePAM [Klonopin ODT Wafer] 0.25 mg PO BID PRN 01/26/21 02/19/21 Children's Tylenol Powder 3 packet PO DIRECTED PRN 02/15/21 02/19/21 Previous Rx's Medication Instructions Recorded Naproxen 500 mg PO BID 30 Days #60 tablet 06/15/21 Allergies Allergy/AdvReac Type Severity Reaction Status Date / Time amoxicillin [From Augmentin] Allergy Unknown Verified 06/15/21 00:54 ciprofloxacin [From Cipro] Allergy Itching Verified 06/15/21 00:54 clavulanic acid Allergy Unknown Verified 06/15/21 00:54 [From Augmentin] codeine Allergy Itching Verified 06/15/21 00:54 nitrofurantoin Allergy Itching Verified 06/15/21 00:54 [From Macrobid] prochlorperazine Allergy Unknown Verified 06/15/21 00:54 [From Compazine] Sulfa (Sulfonamide Allergy Itching Verified 06/15/21 00:54 Antibiotics) sulfamethoxazole Allergy Itching Verified 06/15/21 00:54 [From Bactrim] trimethoprim [From Bactrim] Allergy Itching Verified 06/15/21 00:54 phenazopyridine AdvReac Abdominal Verified 06/15/21 00:54 [From Pyridium] Pain Review of Systems ROS Statement: Those systems with pertinent positive or pertinent negative responses have been documented in the HPI. ROS Other: All systems not noted in ROS Statement are negative. 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 c/o issues swallowing, feels food gets stuck in her throat. Hx tachycardia, poss R/T anxiety History of Any Multi-Drug Resistant Organisms: None Reported Past Surgical History: Appendectomy, Cholecystectomy, Hysterectomy Additional Past Surgical History / Comment(s): EGD x3. [place] teeth Past Anesthesia/Blood Transfusion Reactions: Postoperative Nausea & Vomiting (PONV) Additional Past Anesthesia/Blood Transfusion Reaction / Comment(s): Awakens in panic w/ General Anesthesia. (no hx blood transfusion) Past Psychological History: Anxiety, Depression Smoking Status: Never smoker Past Alcohol Use History: None Reported Past Drug Use History: None Reported - Past Family History Mother Family Medical History: No Reported History General Exam Limitations: no limitations General appearance: alert, in no apparent distress Head exam: Present: atraumatic, normocephalic, normal inspection Eye exam: Present: normal appearance, EOMI ENT exam: Present: normal exam, normal oropharynx, mucous membranes moist Neck exam: Present: normal inspection, full ROM. Absent: tenderness, meningismus, lymphadenopathy Respiratory exam: Present: normal lung sounds bilaterally. Absent: respiratory distress, wheezes, rales, rhonchi, stridor Cardiovascular Exam: Present: regular rate, normal rhythm, normal heart sounds. Absent: systolic murmur, diastolic murmur, rubs, gallop, clicks GI/Abdominal exam: Present: soft. Absent: tenderness (Right lower quadrant with palpation) External exam: Present: normal external exam. Absent: erythema, swelling, lesions, lacerations, ecchymosis Speculum exam: Present: normal speculum exam. Absent: erythema, vaginal discharge, cervical discharge, vaginal bleeding, foreign body, laceration Extremities exam: Present: normal inspection, full ROM, normal capillary refill. Absent: pedal edema Back exam: Present: normal inspection. Absent: full ROM, tenderness, CVA tenderness (R), CVA tenderness (L), rash noted Neurological exam: Present: alert, oriented X3 Psychiatric exam: Present: normal affect, normal mood, anxious Skin exam: Present: warm, dry, intact, normal color. Absent: rash, cyanosis, diaphoretic, pallor Course Vital Signs 06/15/21 00:51 Temperature 98.3 F Pulse Rate 101 H Respiratory 20 Rate Blood Pressure 137/83 O2 Sat by Pulse 100 Oximetry Medical Decision Making - Medical Decision Making Transvaginal ultrasound shows no evidence of ovarian torsion, no pelvic mass and no free fluid. There are small hyperechoic areas within the vaginal cuff with the largest measuring 0.2 x 2.2 x 0.1 cm. urinalysis shows no sign of infection. On speculum exam patient had no vaginal bleeding noted. There is no discharge. She does have right adnexal pain. 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 She was given a prescription for naproxen and directed to use warm compresses for pain. Case discussed with Dr. Fish - Lab Data Lab Results 06/15/21 Range/Units 01:43 Urine Color Yellow Urine Appearance Clear (Clear) Urine pH 5.5 (5.0-8.0) Ur Specific [place] 1.027 (1.001-1.035) Urine Protein Trace H (Negative) Urine Glucose (UA) Negative (Negative) Urine Ketones Negative (Negative) Urine Blood Negative (Negative) Urine Nitrite Negative (Negative) Urine Bilirubin Negative (Negative) Urine Urobilinogen <2.0 (<2.0) mg/dL Ur Leukocyte Esterase Negative (Negative) Disposition Clinical Impression: Dysfunctional uterine bleeding Disposition: HOME SELF-CARE Condition: Good Instructions (If sedation given, give patient instructions): Dysfunctional Uterine Bleeding (ED) Additional Instructions: Ultrasound today shows follicles in the right ovary with no evidence of ovarian torsion or pelvic mass. You can take naproxen every 12 hours as needed for pain. Use a warm compress for pain relief. Follow-up with your primary care doctor or [facility] next week. Return to the emergency room with any new or worsening symptoms. Prescriptions: Naproxen 500 mg PO BID 30 Days #60 tablet Is patient prescribed a controlled substance at d/c from ED?: No Referrals: Agustin Bradley MD [Primary Care Provider] - 1-2 days Maty Spaulding DO [Doctor of Osteopathic Medicine] - 1-2 days Time of Disposition: 03:24
[2021-06-15 02:17] LABS: Appearance,Urine Clear (Clear); Bilirubin,Urine Negative (Negative); Blood,Urine Negative (Negative); Color,Urine Yellow; Glucose,Urine (UA) Negative (Negative); Ketones,Urine Negative (Negative); Leukocyte Esterase,Urine Negative (Negative); Nitrite,Urine Negative (Negative); PH, Urine 5.5 (5.0-8.0); Protein,Urine Trace (Negative); Specific Gravity,Urine 1.027 (1.001-1.035); Urobilinogen,Urine <2.0 mg/dL (<2.0)
--- NOTE | 2021-06-15 02:52 | US ---
EXAMINATION TYPE: US pelvis complete transvag DATE OF EXAM: 06/15/2021 COMPARISON: US, CT CLINICAL HISTORY: rlq pain. RLQ pain, vaginal bleeding. Hx partial hysterectomy. . TECHNIQUE: Transvaginal (TV) and Transabdominal (TA) . Transabdominal sonographic images of the pel vis were acquired and were medically necessary to better assess the following anatomy: ovaries. Date of LMP: EXAM MEASUREMENTS: Uterus: Surgically absent. Right Ovary: 2.7 x 1.5 x 1.4 cm. Left Ovary: 3.9 x 2.2 x 2.2 cm 1. Uterus: Surgically absent. Small hyperechoic areas seen within vaginal cuff, largest measures 0.2 x 0.2 x 0.1 cm. 2. Endometrium: -- 3. Right Ovary: Follicles seen. 4. Left Ovary: Subcentimeter anechoic areas seen. Spectral, color and waveform doppler imaging shows arterial and venous flow within the ovaries. 5. Bilateral Adnexa: Appear wnl. 6. Posterior cul-de-sac: Appears wnl. IMPRESSION: No evidence of ovarian torsion. No evidence of a pelvic mass. No free fluid.
[2021-06-15 03:47] VITALS: BP 120/83; PULSE 72; RESP 18; TEMP 99
== END 2021-06-15 03:46 | disposition home or self-care (01) ==
LOC: EC 00:49
DX: N93.8 Other specified abnormal uterine and vaginal bleeding (principal); K21.9 Gastro-esophageal reflux disease without esophagitis; F32.9 Major depressive disorder, single episode, unspecified; F41.9 Anxiety disorder, unspecified; Z79.1 Long term (current) use of non-steroidal anti-inflammatories (NSAID); Z79.899 Other long term (current) drug therapy; Z88.0 Allergy status to penicillin; Z88.2 Allergy status to sulfonamides; Z88.1 Allergy status to other antibiotic agents; Z88.8 Allergy status to other drugs, medicaments and biological substances; Z90.49 Acquired absence of other specified parts of digestive tract
CPT/HCPCS: 76830; 76856; 81003; 93975; 99284

== ENCOUNTER 2021-06-22 13:41 | Emergency (ER) | payer BC, OTHER ==
[2021-06-22] MEDS ORDERED: LORazepam 1 MG TAB PO STA (14:02)
[2021-06-22] MEDS ORDERED: ACETAMINOPHEN TAB 500 MG TAB PO STA (14:02)
--- NOTE | 2021-06-22 14:04 | ED ---
General Adult HPI - General Chief complaint: Upper Respiratory Infection Stated complaint: COVID Exposure Time Seen by Provider: 06/22/21 13:52 Source: patient, RN notes reviewed Mode of arrival: ambulatory Limitations: no limitations - History of Present Illness Initial comments: Patient is a pleasant 31-year-old female presenting to the emergency department with concerns for COVID-19 infection. Patient's has infection. Patient started with symptoms just today. Patient feels fatigued that is progressing. Patient has minimal cough and chest congestion. No rhinorrhea. No loss of taste or smell. Patient has chills and mild palpitations. Patient feels anxious and requests medications for anxiety. - Related Data Home Medications Medication Instructions Recorded Confirmed Omeprazole [PriLOSEC] 20 mg PO HS 07/22/19 06/22/21 lamoTRIgine [LaMICtal] 50 mg PO DAILY 07/22/19 06/22/21 Famotidine [Pepcid] 40 mg PO HS 01/26/21 06/22/21 clonazePAM [Klonopin ODT Wafer] 0.25 mg PO BID PRN 01/26/21 06/22/21 Children's Tylenol Powder 1,000 mg PO Q6H PRN 02/15/21 06/22/21 Amoxicillin 500 mg PO BID 06/22/21 06/22/21 Naproxen 500 mg PO BID PRN 06/22/21 06/22/21 ondansetron HCL [Zofran] 8 mg PO Q12HR PRN 06/22/21 06/22/21 Allergies Allergy/AdvReac Type Severity Reaction Status Date / Time amoxicillin [From Augmentin] Allergy Unknown Verified 06/22/21 14:25 ciprofloxacin [From Cipro] Allergy Itching Verified 06/22/21 14:25 clavulanic acid Allergy Unknown Verified 06/22/21 14:25 [From Augmentin] codeine Allergy Itching Verified 06/22/21 14:25 nitrofurantoin Allergy Itching Verified 06/22/21 14:25 [From Macrobid] prochlorperazine Allergy Unknown Verified 06/22/21 14:25 [From Compazine] Sulfa (Sulfonamide Allergy Itching Verified 06/22/21 14:25 Antibiotics) sulfamethoxazole Allergy Itching Verified 06/22/21 14:25 [From Bactrim] trimethoprim [From Bactrim] Allergy Itching Verified 06/22/21 14:25 phenazopyridine AdvReac Abdominal Verified 06/22/21 14:25 [From Pyridium] Pain Review of Systems ROS Statement: Those systems with pertinent positive or pertinent negative responses have been documented in the HPI. ROS Other: All systems not noted in ROS Statement are negative. Constitutional: Reports: chills Eyes: Denies: eye pain ENT: Denies: ear pain Respiratory: Reports: cough. Denies: dyspnea Cardiovascular: Denies: chest pain Endocrine: Reports: fatigue Gastrointestinal: Reports: other (Anorexia). 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 c/o issues swallowing, feels food gets stuck in her throat. Hx tachycardia, poss R/T anxiety History of Any Multi-Drug Resistant Organisms: None Reported Past Surgical History: Appendectomy, Cholecystectomy, Hysterectomy Additional Past Surgical History / Comment(s): EGD x3. [place] teeth Past Anesthesia/Blood Transfusion Reactions: Postoperative Nausea & Vomiting (PONV) Additional Past Anesthesia/Blood Transfusion Reaction / Comment(s): Awakens in panic w/ General Anesthesia. (no hx blood transfusion) Past Psychological History: Anxiety, Depression Smoking Status: Never smoker Past Alcohol Use History: None Reported Past Drug Use History: None Reported - Past Family History Mother Family Medical History: No Reported History General Exam Limitations: no limitations General appearance: alert, in no apparent distress Head exam: Present: normocephalic Eye exam: Present: normal appearance Neck exam: Present: normal inspection Respiratory exam: Present: normal lung sounds bilaterally Cardiovascular Exam: Present: tachycardia GI/Abdominal exam: Present: soft. Absent: tenderness Extremities exam: Present: normal inspection Neurological exam: Present: alert Psychiatric exam: Present: normal affect, normal mood Skin exam: Present: normal color Course Vital Signs 06/22/21 06/22/21 13:42 14:47 Temperature 99.1 F Pulse Rate 110 H Respiratory 20 16 Rate Blood Pressure 115/73 O2 Sat by Pulse 100 Oximetry Medical Decision Making - Medical Decision Making Patient positive for COVID-19 infection. Monoclonal antibodies ordered. Patient updated. - Lab Data Lab Results 06/22/21 Range/Units 14:25 Coronavirus (PCR) Detected A (Not Detectd) Disposition Clinical Impression: COVID-19 Disposition: HOME SELF-CARE Condition: Stable Instructions (If sedation given, give patient instructions): Coronavirus Disease 2019 (COVID-19), Fever in Adults (ED) Additional Instructions: Continue to quarantine the CDC guidelines. Lnyr-[id number]-[id number] vitamin C, vitamin D, and zinc. Ljqd-rfi-kmymhtp melatonin. [id number]-[id number] Tylenol as needed for fever. Please follow-up with primary care physician in the next couple days for recheck. Return for difficulty breathing, not tolerating fluids, worsening symptoms or other concerns. Is patient prescribed a controlled substance at d/c from ED?: No Referrals: Agustin Bradley MD [Primary Care Provider] - 1-2 days Time of Disposition: 15:28
[2021-06-22] MEDS ORDERED: ACETAMINOPHEN ORAL SUSP 160 MG/5 ML CUP PO ONE (14:30)
[2021-06-22] MEDS ORDERED: SODIUM CHLORIDE 0.9% 1,000 ML IV STA (15:22)
[2021-06-22] MEDS ORDERED: BAMLANIVIMAB (EUA) 700 MG, ETESEVIMAB (EUA) 1,400 MG in SODIUM CHLORIDE 0.9% 50 ML IVPB ONE (15:45)
[2021-06-22] MEDS ORDERED: LORazepam 2 MG/ML INJ IV STA (16:36)
[2021-06-22 16:47] VITALS: RESP 20
[2021-06-22 18:23] VITALS: BP 110/79; PULSE 109; TEMP 98
== END 2021-06-22 18:23 | disposition home or self-care (01) ==
LOC: EC 13:41
DX: U07.1 COVID-19 (principal); K21.9 Gastro-esophageal reflux disease without esophagitis; F41.9 Anxiety disorder, unspecified; F32.A Depression, unspecified; Z79.899 Other long term (current) drug therapy
CPT/HCPCS: 87635; 99283; 96365; 96361; J2060; J3490

== ENCOUNTER 2021-07-09 14:25 | Emergency (ER) | payer BC, OTHER ==
[2021-07-09 15:14] VITALS: BP 114/77; PULSE 79; RESP 18; TEMP 98.5
[2021-07-09 15:30] LABS: Appearance,Urine Clear (Clear); Bilirubin,Urine Negative (Negative); Blood,Urine Negative (Negative); Color,Urine Light Yellow; Glucose,Urine (UA) Negative (Negative); Ketones,Urine Negative (Negative); Leukocyte Esterase,Urine Negative (Negative); Nitrite,Urine Negative (Negative); Protein,Urine Negative (Negative); Specific Gravity,Urine 1.009 (1.001-1.035); Urobilinogen,Urine <2.0 mg/dL (<2.0)
[2021-07-09 16:18] LABS: Basophils % (A) 0 %; Eosinophils % (A) 0 %; HCT 43.1 % (34.0-46.0); HGB 14.4 gm/dL (11.4-16.0); Lymphocytes # (A) 2.4 k/uL (1.0-4.8); Lymphocytes % (A) 23 %; MCHC 33.5 g/dL (31.0-37.0); MCV 86.6 fL (80.0-100.0); Mean Platelet Volume 8.4; Monocytes # (A) 0.5 k/uL (0-1.0); Monocytes % (A) 4 %; Neutrophils # (A) 7.2 k/uL (1.3-7.7); Neutrophils % (A) 70 %; Platelet Count 341 k/uL (150-450); RBC 4.97 m/uL (3.80-5.40); RDW 14.1 % (11.5-15.5); WBC 10.3 k/uL (3.8-10.6)
--- NOTE | 2021-07-09 16:23 | XR ---
EXAMINATION TYPE: XR KUB DATE OF EXAM: 07/09/2021 4:08 PM CLINICAL HISTORY: Right flank pain. TECHNIQUE: Two Upright KUB images of the abdomen are obtained. COMPARISON: Abdominal x-ray July 21, 2019. CT abdomen and pelvis May 04, 2020. FINDINGS: Gas seen in nondistended stomach bubble. Scattered gas is seen in non-distended small and l arge bowel loops. There is no visceromegaly, pneumoperitoneum, or abnormal calcification appreciated. The lung bases are clear and the osseous structures are intact. IMPRESSION: Overall nonobstructive bowel gas pattern. No definitive nephrolithiasis.
[2021-07-09 16:24] LABS: ALT 19 U/L (4-34); AST 25 U/L (14-36); African American GFR (CKD) >90 (>60 ml/min/1.73 sqM); Albumin 4.7 g/dL (3.5-5.0); Alkaline Phosphatase 85 U/L (38-126); Anion Gap 11 mmol/L; Blood Urea Nitrogen 12 mg/dL (7-17); Calcium 9.7 mg/dL (8.4-10.2); Carbon Dioxide 25 mmol/L (22-30); Chloride 102 mmol/L (98-107); Glucose 88 mg/dL (74-99); Non-African American GFR(CKD) >90 (>60 ml/min/1.73 sqM); Potassium 4.4 mmol/L (3.5-5.1); Sodium 138 mmol/L (137-145); Total Bilirubin 0.7 mg/dL (0.2-1.3); Total Protein 7.6 g/dL (6.3-8.2)
--- NOTE | 2021-07-09 17:00 | ED ---
Recheck HPI - General Chief Complaint: Recheck/Abnormal Lab/Rx Stated Complaint: Side/flank pain Time Seen by Provider: 07/09/21 15:40 Source: patient, RN notes reviewed Mode of arrival: ambulatory Limitations: no limitations - History of Present Illness Initial Comments: Fahad is a 31-year-old female that presents to the emergency department complaining of right flank pain. She notes that radiates to her right lower abdomen. She notes she is currently on amoxicillin for urinary tract infection. She denied any history of kidney stones. Patient notes her pain was approximate 4-5 out of 10 with no relief. She denied the need for any pain medications at this time as it was tolerable. Patient was well-appearing in no pain or distress or pain. She denied chest pain short of breath headache nausea vomiting diarrhea constipation fever fatigue chills. - Related Data Home Medications Medication Instructions Recorded Confirmed Omeprazole [PriLOSEC] 20 mg PO HS 07/22/19 07/09/21 lamoTRIgine [LaMICtal] 50 mg PO QAM 07/22/19 07/09/21 Famotidine [Pepcid] 40 mg PO HS 01/26/21 07/09/21 clonazePAM [Klonopin ODT Wafer] 0.25 mg PO BID PRN 01/26/21 07/09/21 Children's Tylenol Powder 500 mg PO Q6H PRN 02/15/21 07/09/21 Amoxicillin 500 mg PO BID 06/22/21 07/09/21 Previous Rx's Medication Instructions Recorded Ketorolac [Toradol] 10 mg PO Q8HR #15 tab 07/09/21 Tamsulosin [Flomax] 0.4 mg PO DAILY #7 cap 07/09/21 Allergies Allergy/AdvReac Type Severity Reaction Status Date / Time amoxicillin [From Augmentin] Allergy Unknown Verified 07/09/21 15:11 ciprofloxacin [From Cipro] Allergy Itching Verified 07/09/21 15:11 clavulanic acid Allergy Unknown Verified 07/09/21 15:11 [From Augmentin] codeine Allergy Itching Verified 07/09/21 15:11 nitrofurantoin Allergy Itching Verified 07/09/21 15:11 [From Macrobid] prochlorperazine Allergy Unknown Verified 07/09/21 15:11 [From Compazine] Sulfa (Sulfonamide Allergy Itching Verified 07/09/21 15:11 Antibiotics) sulfamethoxazole Allergy Itching Verified 07/09/21 15:11 [From Bactrim] trimethoprim [From Bactrim] Allergy Itching Verified 07/09/21 15:11 phenazopyridine AdvReac Abdominal Verified 07/09/21 15:11 [From Pyridium] Pain Review of Systems ROS Statement: Those systems with pertinent positive or pertinent negative responses have been documented in the HPI. ROS Other: All systems not noted in ROS Statement are negative. 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 c/o issues swallowing, feels food gets stuck in her throat. Hx tachycardia, poss R/T anxiety History of Any Multi-Drug Resistant Organisms: None Reported Past Surgical History: Appendectomy, Cholecystectomy, Hysterectomy Additional Past Surgical History / Comment(s): EGD x3. [place] teeth Past Anesthesia/Blood Transfusion Reactions: Postoperative Nausea & Vomiting (PONV) Additional Past Anesthesia/Blood Transfusion Reaction / Comment(s): Awakens in panic w/ General Anesthesia. (no hx blood transfusion) Past Psychological History: Anxiety, Depression Smoking Status: Never smoker Past Alcohol Use History: None Reported Past Drug Use History: None Reported - Past Family History Mother Family Medical History: No Reported History General Exam Limitations: no limitations General appearance: alert, in no apparent distress, obese Head exam: Present: atraumatic, normocephalic, normal inspection Eye exam: Present: normal appearance, PERRL, EOMI. Absent: scleral icterus, conjunctival injection, periorbital swelling ENT exam: Present: normal exam, mucous membranes moist Neck exam: Present: normal inspection Respiratory exam: Present: normal lung sounds bilaterally. Absent: respiratory distress, wheezes, rales, rhonchi, stridor Cardiovascular Exam: Present: regular rate, normal rhythm, normal heart sounds. Absent: systolic murmur, diastolic murmur, rubs, gallop, clicks GI/Abdominal exam: Present: soft, normal bowel sounds. Absent: distended, tenderness, guarding, rebound, rigid Extremities exam: Present: normal inspection, full ROM, normal capillary refill. Absent: tenderness, pedal edema, joint swelling, calf tenderness Back exam: Present: normal inspection, CVA tenderness (R) Neurological exam: Present: alert, oriented X3 Psychiatric exam: Present: normal affect, normal mood Skin exam: Present: warm, dry, intact, normal color. Absent: rash Course Vital Signs 07/09/21 15:12 Temperature 98.5 F Pulse Rate 79 Respiratory 18 Rate Blood Pressure 114/77 O2 Sat by Pulse 100 Oximetry Medical Decision Making - Medical Decision Making 31-year-old female complaining of right flank pain Labs, KUB ordered. Patient declined the need for pain medication this time. Labs unremarkable, KUB does not show any definitive nephrolithiasis. Given patient's symptoms she most likely has a small kidney stone. Medications sent to pharmacy. Patient was instructed to continue taking her antibiotics and to take these medications as prescribed Case discussed with Dr. Michel, patient can discharge home. - Lab Data Result diagrams: 07/09/21 15:55 07/09/21 15:55 Lab Results 07/09/21 07/09/21 07/09/21 Range/Units 15:19 15:55 15:55 WBC 10.3 (3.8-10.6) k/uL RBC 4.97 (3.80-5.40) m/uL Hgb 14.4 (11.4-16.0) gm/dL Hct 43.1 (34.0-46.0) % MCV 86.6 (80.0-100.0) fL MCH 29.0 (25.0-35.0) pg MCHC 33.5 (31.0-37.0) g/dL RDW 14.1 (11.5-15.5) % Plt Count 341 (150-450) k/uL MPV 8.4 Neutrophils % 70 % Lymphocytes % 23 % Monocytes % 4 % Eosinophils % 0 % Basophils % 0 % Neutrophils # 7.2 (1.3-7.7) k/uL Lymphocytes # 2.4 (1.0-4.8) k/uL Monocytes # 0.5 (0-1.0) k/uL Eosinophils # 0.0 (0-0.7) k/uL Basophils # 0.0 (0-0.2) k/uL Sodium 138 (137-145) mmol/L Potassium 4.4 (3.5-5.1) mmol/L Chloride 102 (98-107) mmol/L Carbon Dioxide 25 (22-30) mmol/L Anion Gap 11 mmol/L BUN 12 (7-17) mg/dL Creatinine 0.63 (0.52-1.04) mg/dL Est GFR (CKD-EPI)AfAm >90 (>60 ml/min/1.73 sqM) Est GFR (CKD-EPI)NonAf >90 (>60 ml/min/1.73 sqM) Glucose 88 (74-99) mg/dL Calcium 9.7 (8.4-10.2) mg/dL Total Bilirubin 0.7 (0.2-1.3) mg/dL AST 25 (14-36) U/L ALT 19 (4-34) U/L Alkaline Phosphatase 85 (38-126) U/L Total Protein 7.6 (6.3-8.2) g/dL Albumin 4.7 (3.5-5.0) g/dL Urine Color Light Yellow Urine Appearance Clear (Clear) Urine pH 6.0 (5.0-8.0) Ur Specific [place] 1.009 (1.001-1.035) Urine Protein Negative (Negative) Urine Glucose (UA) Negative (Negative) Urine Ketones Negative (Negative) Urine Blood Negative (Negative) Urine Nitrite Negative (Negative) Urine Bilirubin Negative (Negative) Urine Urobilinogen <2.0 (<2.0) mg/dL Ur Leukocyte Esterase Negative (Negative) Disposition Clinical Impression: Nephrolithiasis Disposition: HOME SELF-CARE Condition: Stable Instructions (If sedation given, give patient instructions): Kidney Stones (ED) Additional Instructions: Please return to the Emergency Department if symptoms worsen or any other concerns. Take medications as prescribed. Follow-up with primary care 1-2 days. Is patient prescribed a controlled substance at d/c from ED?: No Referrals: Agustin Bradley MD [Primary Care Provider] - 1-2 days Time of Disposition: 17:00
== END 2021-07-09 17:22 | disposition home or self-care (01) ==
LOC: EC 14:25
DX: N20.0 Calculus of kidney (principal); K21.9 Gastro-esophageal reflux disease without esophagitis; F41.9 Anxiety disorder, unspecified; F32.A Depression, unspecified; Z88.1 Allergy status to other antibiotic agents; Z88.5 Allergy status to narcotic agent; Z88.2 Allergy status to sulfonamides; Z90.49 Acquired absence of other specified parts of digestive tract; Z90.710 Acquired absence of both cervix and uterus
CPT/HCPCS: 36415; 74018; 80053; 81003; 85025; 99284

== ENCOUNTER 2021-07-11 07:52 | Day surgery (SDC) | payer BC, OTHER ==
[~2021-07-11 07:52] MED LIST changes: -LACTATED RINGERS 1,000 ML IV SCH
--- NOTE | 2021-07-11 08:07 | P.GSHP ---
History of Present Illness H&P Date: 07/11/21 CHIEF COMPLAINT: GERD HISTORY OF PRESENT ILLNESS: The patient is a 31-year-old female who presents reports gastroesophageal reflux disease. Upper endoscopy was offered for further evaluation and management. PAST MEDICAL HISTORY: Please see list. PAST SURGICAL HISTORY: Please see list. MEDICATIONS: Please see list. ALLERGIES: Please see list. SOCIAL HISTORY: No illicit drug use FAMILY HISTORY: No reports of Crohn disease or ulcerative colitis. REVIEW OF ORGAN SYSTEMS: CONSTITUTIONAL: No reports of fevers or chills. GI: Denies any blood in stools or constipation. PHYSICAL EXAM: VITAL SIGNS: Stable GENERAL: Well-developed and pleasant in no acute distress. HEENT: No scleral icterus. Extraocular movements grossly intact. Moist buccal mucosa. NECK: Supple without lymphadenopathy. CHEST: Unlabored respirations. Equal bilateral excursions. CARDIOVASCULAR: Regular rate and rhythm. Distal 2+ pulses. ABDOMEN: Soft, nondistended. MUSCULOSKELETAL: No clubbing, cyanosis, or edema. ASSESSMENT: 1. Gastroesophageal reflux disease PLAN: 1. Recommend proceeding with an upper endoscopy Past Medical History Past Medical History: GERD/Reflux Additional Past Medical History / Comment(s): IBS-resolved after cholecysectomy. c/o issues swallowing, feels food gets stuck in her throat. Hx tachycardia, poss R/T anxiety History of Any Multi-Drug Resistant Organisms: None Reported Past Surgical History: Appendectomy, Cholecystectomy, Hysterectomy Additional Past Surgical History / Comment(s): EGD x3. [place] teeth Past Anesthesia/Blood Transfusion Reactions: Postoperative Nausea & Vomiting (PONV) Additional Past Anesthesia/Blood Transfusion Reaction / Comment(s): Awakens in panic w/ General Anesthesia. (no hx blood transfusion) Past Psychological History: Anxiety, Depression Smoking Status: Never smoker Past Alcohol Use History: None Reported Past Drug Use History: None Reported - Past Family History Mother Family Medical History: No Reported History Medications and Allergies Home Medications Medication Instructions Recorded Confirmed Type Omeprazole [PriLOSEC] 20 mg PO HS 07/22/19 07/09/21 History lamoTRIgine [LaMICtal] 50 mg PO QAM 07/22/19 07/09/21 History Famotidine [Pepcid] 40 mg PO HS 01/26/21 07/09/21 History clonazePAM [Klonopin ODT Wafer] 0.25 mg PO BID PRN 01/26/21 07/09/21 History Children's Tylenol Powder 500 mg PO Q6H PRN 02/15/21 07/09/21 History Amoxicillin 500 mg PO BID 06/22/21 07/09/21 History Ketorolac [Toradol] 10 mg PO Q8HR #15 tab 07/09/21 Rx Tamsulosin [Flomax] 0.4 mg PO DAILY #7 cap 07/09/21 Rx Allergies Allergy/AdvReac Type Severity Reaction Status Date / Time amoxicillin [From Augmentin] Allergy Unknown Verified 07/11/21 08:06 ciprofloxacin [From Cipro] Allergy Itching Verified 07/11/21 08:06 clavulanic acid Allergy Unknown Verified 07/11/21 08:06 [From Augmentin] codeine Allergy Itching Verified 07/11/21 08:06 nitrofurantoin Allergy Itching Verified 07/11/21 08:06 [From Macrobid] prochlorperazine Allergy Unknown Verified 07/11/21 08:06 [From Compazine] Sulfa (Sulfonamide Allergy Itching Verified 07/11/21 08:06 Antibiotics) sulfamethoxazole Allergy Itching Verified 07/11/21 08:06 [From Bactrim] trimethoprim [From Bactrim] Allergy Itching Verified 07/11/21 08:06 phenazopyridine AdvReac Abdominal Verified 07/11/21 08:06 [From Pyridium] Pain
[2021-07-11 08:16] VITALS: TEMP 97.7
[2021-07-11] MEDS: LACTATED RINGERS 1,000 ML IV SCH ×2 (08:26→08:34)
[2021-07-11] MEDS ORDERED: LIDOCAINE 1% INJ 10MG/ML (20 ML MDV) ONE (08:33)
[2021-07-11] MEDS ORDERED: PROPOFOL 10 MG/ML 20 ML VIAL IV ONE (08:33)
--- NOTE | 2021-07-11 08:54 | P.PCN ---
Date of Procedure: 07/11/21 Description of Procedure: PREOPERATIVE DIAGNOSIS: Gastroesophageal reflux disease Dysphagia Upper esophageal dysmotility POSTOPERATIVE DIAGNOSIS: Upper esophageal stenosis Gastroesophageal reflux disease Dysphagia OPERATION: Esophagogastroduodenoscopy with rigid dilator over the guidewire 57 Fr with yolanda jenkins SURGEON: Arely Orellana MD ANESTHESIA: MAC. INDICATIONS: The patient is a 31-year-old female who presents with upper esophageal stenosis and dysmotility. Benefits and risks of the procedure were described. Informed consent was obtained. DESCRIPTION: The patient was brought into the endoscopy suite and laid in the left lateral decubitus position. After a timeout was confirmed, the procedure was initiated. An Olympus gastroscope was passed into the posterior oropharynx where an upper esophageal stenosis was identified. No larger or abnormal tumors were identified along the posterior oropharynx. The scope was passed down to the distal esophagus into the second portion of the duodenum. No gastric or duodenal ulcers were identified. To address the upper esophageal stenosis, rigid dilator over guidewire was selected. Next using an [place] rigid dilator, a guidewire was placed through the gastroscope. Next the scope was withdrawn. Initially a 60-Thai dilator was attempted however downsized to a 57-Thai rigid [place] dilator was passed carefully along the posterior oropharynx to 45 cm and left in place for 2-3 minutes stretch. The dilator was withdrawn including the guidewire. The scope was reentered along the posterior oropharynx with no findings of full-thickness tear of the upper esophageal sphincter. Additional findings below. No full-thickness injury was encountered. The GI tract was desufflated. The patient tolerated the procedure well. FINDINGS: Upper esophageal stenosis dilated 57-Thai rigid dilator Bile reflux gastritis along the gastric body RECOMMENDATIONS: Upper endoscopy as needed Plan - Discharge Summary Discharge Rx Participant: No New Discharge Prescriptions: Continue lamoTRIgine [LaMICtal] 50 mg PO QAM Omeprazole [PriLOSEC] 20 mg PO HS clonazePAM [Klonopin ODT Wafer] 0.25 mg PO BID PRN PRN Reason: Anxiety Famotidine [Pepcid] 40 mg PO HS Amoxicillin 500 mg PO BID Children's Tylenol Powder 500 mg PO Q6H PRN PRN Reason: Pain Discharge Medication List Omeprazole [PriLOSEC] 20 mg PO HS 07/22/19 [History] lamoTRIgine [LaMICtal] 50 mg PO QAM 07/22/19 [History] Famotidine [Pepcid] 40 mg PO HS 01/26/21 [History] clonazePAM [Klonopin ODT Wafer] 0.25 mg PO BID PRN 01/26/21 [History] Children's Tylenol Powder 500 mg PO Q6H PRN 02/15/21 [History] Amoxicillin 500 mg PO BID 06/22/21 [History] Follow up Appointment(s)/Referral(s): Arely Orellana MD [STAFF PHYSICIAN] - 07/24/21 Patient Instructions/Handouts: Esophageal Dilation (DC) Activity/Diet/Wound Care/Special Instructions: Warm beverages. Soft food diet for 48 hrs, 2 days. Salt water gargle. Discharge Disposition: HOME SELF-CARE
[2021-07-11 09:10] VITALS: BP 103/59; PULSE 82; RESP 16
[2021-07-11] MEDS ORDERED: ACETAMINOPHEN TAB 500 MG TAB ONE (09:31)
== END 2021-07-11 09:39 | disposition home or self-care (01) ==
LOC: ORWHC2ENDO 07:52
PROVIDERS: ATTEND Surgery Plastic and Reconstructive Surgery
DX: K21.9 Gastro-esophageal reflux disease without esophagitis (principal); K22.2 Esophageal obstruction; F41.9 Anxiety disorder, unspecified; E07.9 Disorder of thyroid, unspecified; F32.9 Major depressive disorder, single episode, unspecified; Z79.899 Other long term (current) drug therapy; Z88.1 Allergy status to other antibiotic agents; Z88.0 Allergy status to penicillin; Z88.2 Allergy status to sulfonamides; Z88.8 Allergy status to other drugs, medicaments and biological substances
CPT/HCPCS: 43249; J2001; J2704

== ENCOUNTER 2021-09-10 02:50 | Emergency (ER) | payer BC, OTHER ==
[2021-09-10 03:17] VITALS: BP 115/64; PULSE 81; RESP 16; TEMP 98.5
--- NOTE | 2021-09-10 03:37 | ED ---
ENT HPI - General Chief complaint: ENT Stated complaint: R ear/neck pain Time Seen by Provider: 09/10/21 03:36 Source: patient Mode of arrival: ambulatory - History of Present Illness Initial comments: Hermelinda is a 31yo F since ER today with complaint of pain in her right cervical lymph nodes pain radiating to her ear. Patient has a history of recurrent strep pharyngitis and tonsil stones, she is followed with ENT in the past due to swallowing problems. She reports when she woke up yesterday she had pain in her lymph nodes throughout the day progressively worsening of his pain although into her ear. Mild sore throat. No dental pain or recent infections. - Related Data Home Medications Medication Instructions Recorded Confirmed Omeprazole [PriLOSEC] 20 mg PO HS 07/22/19 07/11/21 lamoTRIgine [LaMICtal] 50 mg PO QAM 07/22/19 07/11/21 Famotidine [Pepcid] 40 mg PO HS 01/26/21 07/11/21 clonazePAM [Klonopin ODT Wafer] 0.25 mg PO BID PRN 01/26/21 07/11/21 Children's Tylenol Powder 500 mg PO Q6H PRN 02/15/21 07/11/21 Amoxicillin 500 mg PO BID 06/22/21 07/11/21 Previous Rx's Medication Instructions Recorded Amoxicillin 500 mg PO BID 10 Days #125 ml 09/10/21 Cephalexin [Keflex] 500 mg PO Q12HR 7 Days #2 cap 09/10/21 Allergies Allergy/AdvReac Type Severity Reaction Status Date / Time amoxicillin [From Augmentin] Allergy Unknown Verified 09/10/21 03:18 ciprofloxacin [From Cipro] Allergy Itching Verified 09/10/21 03:18 clavulanic acid Allergy Unknown Verified 09/10/21 03:18 [From Augmentin] codeine Allergy Itching Verified 09/10/21 03:18 nitrofurantoin Allergy Itching Verified 09/10/21 03:18 [From Macrobid] prochlorperazine Allergy Unknown Verified 09/10/21 03:18 [From Compazine] Sulfa (Sulfonamide Allergy Itching Verified 09/10/21 03:18 Antibiotics) sulfamethoxazole Allergy Itching Verified 09/10/21 03:18 [From Bactrim] trimethoprim [From Bactrim] Allergy Itching Verified 09/10/21 03:18 phenazopyridine AdvReac Abdominal Verified 09/10/21 03:18 [From Pyridium] Pain Review of Systems ROS Statement: Those systems with pertinent positive or pertinent negative responses have been documented in the HPI. ROS Other: All systems not noted in ROS Statement are negative. 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 c/o issues swallowing, feels food gets stuck in her throat. Hx tachycardia, poss R/T anxiety History of Any Multi-Drug Resistant Organisms: None Reported Past Surgical History: Appendectomy, Cholecystectomy, Hysterectomy Additional Past Surgical History / Comment(s): EGD x3. [place] teeth Past Anesthesia/Blood Transfusion Reactions: Postoperative Nausea & Vomiting (PONV) Additional Past Anesthesia/Blood Transfusion Reaction / Comment(s): Awakens in panic w/ General Anesthesia. (no hx blood transfusion) Past Psychological History: Anxiety, Depression Smoking Status: Never smoker Past Alcohol Use History: None Reported Past Drug Use History: None Reported - Past Family History Mother Family Medical History: No Reported History General Exam - General Exam Comments Initial Comments: Physical Exam GENERAL: Patient is well-developed and well-nourished. Patient is nontoxic and well-hydrated and is in no distress. HENT: Normocephalic, Atraumatic. Tender cervical lymphadenopathy R > L TM clear bilaterally, no signs of infection Tonsils enlarged bilaterally, appears to be a possible tonsil stone in right, scant exudate uvula midline EYES: PERRL, EOMI PULMONARY: Unlabored respirations. CARDIOVASCULAR: RRR Warm and well perfused extremities ABDOMEN: Non-distended SKIN: No rashes or bruising : Deferred NEUROLOGIC: Alert and oriented Normal speech Normal gait MUSCULOSKELETAL: Moving all extremities with no apparent injury PSYCHIATRIC: No SI/HI Course Vital Signs 09/10/21 03:05 Temperature 98.5 F Pulse Rate 81 Respiratory 16 Rate Blood Pressure 115/64 O2 Sat by Pulse 100 Oximetry Medical Decision Making - Medical Decision Making Patient seen and evaluated history is obtained from patient, patient appears to have pharyngitis of possible tonsil stone, patient was offered Toradol and steroids however she was on an injection and states that steroids cause her to BE jittery which exacerbate her anxiety she did decline these. Patient has a reported ALLERGY to Augmentin however states that she is usually treated with amoxicillin and tolerates that well. Patient be given amoxicillin she is unable to swallow pills therefore she will be given liquid. Patient referred to local ENT for follow-up. Disposition Clinical Impression: Cervical lymphadenopathy, Pharyngitis Disposition: HOME SELF-CARE Condition: Stable Prescriptions: Amoxicillin 500 mg PO BID 10 Days #125 ml Cephalexin [Keflex] 500 mg PO Q12HR 7 Days #2 cap Is patient prescribed a controlled substance at d/c from ED?: No Referrals: Agustin Bradley MD [Primary Care Provider] - 1-2 days Siddhartha Damon MD [STAFF PHYSICIAN] - 1-2 days
[2021-09-10] MEDS ORDERED: CEPHALEXIN 500MG STARTER PACK 4 CAP BTL PO STA (03:55)
[2021-09-10] MEDS ORDERED: KETOROLAC 15 MG/ML 1 ML VIAL IM STA (03:56)
[2021-09-10] MEDS: AMOXICILLIN 250 MG/5 ML 80 ML BOTTLE PO ONE ×2 (04:37→04:39)
== END 2021-09-10 04:50 | disposition home or self-care (01) ==
LOC: EC 02:50
DX: R59.0 Localized enlarged lymph nodes (principal); J02.9 Acute pharyngitis, unspecified; K21.9 Gastro-esophageal reflux disease without esophagitis; F41.9 Anxiety disorder, unspecified; F32.A Depression, unspecified; Z88.5 Allergy status to narcotic agent; Z88.2 Allergy status to sulfonamides; Z88.1 Allergy status to other antibiotic agents; Z90.49 Acquired absence of other specified parts of digestive tract; Z90.710 Acquired absence of both cervix and uterus
CPT/HCPCS: 99283

== ENCOUNTER → 2022-11-21 | Outpatient (CLI) | payer BC, OTHER ==
[2022-11-21 20:58] LABS: Basophils # (A) 0.05 X 10*3/uL (0.00-0.10); Basophils % (A) 0.6 %; Eosinophils # (A) 0.08 X 10*3/uL (0.04-0.35); Eosinophils % (A) 0.9 %; HCT 43.5 % (37.2-46.3); HGB 13.6 g/dL (12.0-15.0); Immature Grans, Automated 0.4 %; Lymphocytes # (A) 2.36 X 10*3/uL (0.90-5.00); Lymphocytes % (A) 27.7 %; MCH 29.1 pg (27.0-32.0); MCHC 31.3 g/dL (32.0-37.0); MCV 92.9 fL (80.0-97.0); Mean Platelet Volume 10.5 fL (9.5-12.2); Monocytes # (A) 0.57 X 10*3/uL (0.20-1.00); Monocytes % (A) 6.7 %; NRBC Per 100 WBC 0 /100 WBCS (0.0-0.0); Neutrophils # (A) 5.43 X 10*3/uL (1.80-7.70); Neutrophils % (A) 63.7 %; Platelet Count 358 X 10*3/uL (140-440); RBC 4.68 X 10*6/uL (4.10-5.20); RDW 13.4 % (11.5-14.5); WBC 8.52 X 10*3/uL (4.50-10.00)
[2022-11-21 21:59] LABS: ALT 17 U/L (8-44); AST 15 U/L (13-35); African American GFR (CKD) 135.9 (60.0-200.0); Albumin 4.2 g/dL (3.8-4.9); Albumin/Globulin Ratio 1.78 (1.60-3.17); Alkaline Phosphatase 75 U/L (41-126); BUN/Creat Ratio 12.77 Ratio (12.00-20.00); Blood Urea Nitrogen 8.5 mg/dL (9.0-27.0); Calcium 9.2 mg/dL (8.7-10.3); Carbon Dioxide 26.6 mmol/L (20.0-27.5); Chloride 109 mmol/L (96-109); Globulin 2.4 g/dL (1.6-3.3); Glucose 88 mg/dL (70-110); Non-African American GFR(CKD) 117.2 (60.0-200.0); Potassium 4.2 mmol/L (3.5-5.5); Sodium 144 mmol/L (135-145); Total Protein 6.6 g/dL (6.2-8.2)
== END | disposition home or self-care (01) ==
LOC: LABWHC1 13:25
PROVIDERS: ATTEND Nurse Practitioner Family
DX: E66.9 Obesity, unspecified (principal); R07.9 Chest pain, unspecified; R53.83 Other fatigue
CPT/HCPCS: 36415; 80053; 84443; 85025

== ENCOUNTER 2023-06-19 09:36 | Emergency (ER) | payer BC, OTHER ==
[2023-06-19] MEDS ORDERED: SODIUM CHLORIDE 0.9% 1,000 ML IV STA (10:08)
--- NOTE | 2023-06-19 10:34 | ED ---
Chest Pain HPI - General Chief Complaint: Chest Pain Stated Complaint: Palpitations Time Seen by Provider: 06/19/23 10:02 Source: patient, RN notes reviewed Mode of arrival: ambulatory Limitations: no limitations - History of Present Illness Initial Comments: This is a 33-year-old female who presents to the emergency department for chest pain and palpitations. States that last night she felt like her heart was beating very quickly and she had a burning sensation in her chest. Also states that she had some shortness of breath last night. She has also developed right shoulder pain. The chest pain has started to improve, however she continues to have right shoulder pain. Denies any injuries. Chest pain is not worse with inhalation. Denies any personal or family cardiac history. MD Complaint: chest pain - Related Data Home Medications Medication Instructions Recorded Confirmed Omeprazole [PriLOSEC] 20 mg PO HS 07/22/19 07/11/21 lamoTRIgine [LaMICtal] 50 mg PO QAM 07/22/19 07/11/21 Famotidine [Pepcid] 40 mg PO HS 01/26/21 07/11/21 clonazePAM [Klonopin ODT Wafer] 0.25 mg PO BID PRN 01/26/21 07/11/21 Children's Tylenol Powder 500 mg PO Q6H PRN 02/15/21 07/11/21 Amoxicillin 500 mg PO BID 06/22/21 07/11/21 Previous Rx's Medication Instructions Recorded Amoxicillin 500 mg PO BID 10 Days #125 ml 09/10/21 Cephalexin [Keflex] 500 mg PO Q12HR 7 Days #2 cap 09/10/21 cephALEXin [Keflex Susp] 500 mg PO BID 10 Days #200 ml 09/10/21 Allergies Allergy/AdvReac Type Severity Reaction Status Date / Time amoxicillin [From Augmentin] Allergy Unknown Verified 06/19/23 09:53 ciprofloxacin [From Cipro] Allergy Itching Verified 06/19/23 09:53 clavulanic acid Allergy Unknown Verified 06/19/23 09:53 [From Augmentin] codeine Allergy Itching Verified 06/19/23 09:53 nitrofurantoin Allergy Itching Verified 06/19/23 09:53 [From Macrobid] prochlorperazine Allergy Unknown Verified 06/19/23 09:53 [From Compazine] Sulfa (Sulfonamide Allergy Itching Verified 06/19/23 09:53 Antibiotics) sulfamethoxazole Allergy Itching Verified 06/19/23 09:53 [From Bactrim] trimethoprim [From Bactrim] Allergy Itching Verified 06/19/23 09:53 phenazopyridine AdvReac Abdominal Verified 06/19/23 09:53 [From Pyridium] Pain Review of Systems ROS Statement: Those systems with pertinent positive or pertinent negative responses have been documented in the HPI. ROS Other: All systems not noted in ROS Statement are negative. 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 c/o issues swallowing, feels food gets stuck in her throat. Hx tachycardia, poss R/T anxiety History of Any Multi-Drug Resistant Organisms: None Reported Past Surgical History: Appendectomy, Cholecystectomy, Hysterectomy Additional Past Surgical History / Comment(s): EGD x3. [place] teeth Past Anesthesia/Blood Transfusion Reactions: Postoperative Nausea & Vomiting ( PONV) Additional Past Anesthesia/Blood Transfusion Reaction / Comment(s): Awakens in panic w/ General Anesthesia. (no hx blood transfusion) Past Psychological History: Anxiety, Depression Smoking Status: Never smoker Past Alcohol Use History: None Reported Past Drug Use History: None Reported - Past Family History Mother Family Medical History: No Reported History General Exam Limitations: no limitations General appearance: alert, in no apparent distress Head exam: Present: atraumatic, normocephalic, normal inspection Respiratory exam: Present: normal lung sounds bilaterally. Absent: respiratory distress, wheezes, rales, rhonchi, stridor, chest wall tenderness Cardiovascular Exam: Present: regular rate, normal rhythm, normal heart sounds. Absent: systolic murmur, diastolic murmur, rubs, gallop, clicks Extremities exam: Present: normal inspection, full ROM. Absent: tenderness Neurological exam: Present: alert, oriented X3, CN II-XII intact Psychiatric exam: Present: normal affect, normal mood Skin exam: Present: warm, dry, intact, normal color. 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 Was pt. sent in by a medical professional or institution? @ -No Did you speak to anyone other than the patient for history? @ -No Did you review nursing and triage notes? @ -Yes, and I agree, it is accurate with regards to the patient's symptoms. Were old charts reviewed? @ -No Differential Diagnosis? @ -Differential Chest Pain: Stable Angina, Unstable Angina, STEMI, NSTEMI Aortic Dissection, Pneumothorax, Musculoskeletal, Esophageal Spasm GERD, Cholecystitis, Pancreatitis, Zoster, this is not meant to be an all-inclusive list. EKG interpreted by me (3pts min.)? @ -EKG interpreted by me demonstrating the following: Sinus rhythm. Ventricular rate 92 bpm, LA interval 177 ms, QRS duration 78 ms, QTC 404 ms. X-rays interpreted by me (1pt min.)? @ -Chest x-ray obtained, my interpretation identifies no localized consolidations or infiltrates. CT interpreted by me (1pt min.)? @ -Not obtained U/S interpreted by me (1pt. min.)? @ -Not obtained What testing was considered but not performed? (CT, X-rays, U/S, labs)? Why? @ -None What meds were considered but not given? Why? @ -None Did you discuss the management of the patient with other professionals? @ -No Did you reconcile home meds? @ -No Was smoking cessation discussed for >3mins.? @ -No Was critical care preformed (if so, how long)? @ -No Were there social determinants of health that impacted care today? How? (Homelessness, low income, unemployed, alcoholism, drug addiction, transportation, low edu. Level, literacy, decrease access to med. care, [place] [facility], rehab)? @ -No Was there de-escalation of care discussed even if they declined? (Discuss DNR or withdrawal of care, Hospice)? @ -No What co-morbidities impacted this encounter? (DM, HTN, Smoking, COPD, CAD, Can cer, CVA, Hep., AIDS, mental health diagnosis, sleep apnea, morbid obesity)? @ -None Was patient admitted / discharged? @ -Discharged. Lab work obtained and found to be nonactionable, including a negative troponin and negative d-dimer. Chest x-ray reveals no acute process. She was no longer experiencing chest pain or shortness of breath and at this point only had some pain to the right shoulder. This was worse with range of motion. Heart score is 0-1. Based on her heart score and unremarkable workup, patient discharged home in stable condition with instructions to follow up with her primary care provider. Advised ibuprofen and Tylenol as needed for pain relief. Undiagnosed new problem with uncertain prognosis? @ -None Drug Therapy requiring intensive monitoring for toxicity (Heparin, Nitro, Insulin, Cardizem)? @ -None Were any procedures done? @ -None Diagnosis/symptom? @ -Atypical chest pain Acute, or Chronic, or Acute on Chronic? @ -Acute Uncomplicated (without systemic symptoms) or Complicated (systemic symptoms)? @ -Uncomplicated Side effects of treatment? @ -None Exacerbation, Progression, or Severe Exacerbation] @ -Not applicable Poses a threat to life or bodily function? @ -Unlikely Return precautions reviewed in depth, the patient is instructed to return to the emergency department with any new, worsening, or concerning symptoms. Patient verbalized understanding. This case was discussed in detail with the attending ED physician, Dr. Harris. Presentation, findings, and treatment plan discussed in detail as well. Disposition Clinical Impression: Atypical chest pain, Right shoulder pain Disposition: HOME SELF-CARE Instructions (If sedation given, give patient instructions): Chest Pain (ED) Additional Instructions: Return to the emergency department with any new, worsening, or concerning symptoms. Follow up with your primary care provider in 1-2 days. Is patient prescribed a controlled substance at d/c from ED?: No Referrals: Daniel Shell MD [Primary Care Provider] - 1-2 days
[2023-06-19 10:41] LABS: Basophils % (A) 0 %; Eosinophils # (A) 0.1 k/uL (0-0.7); Eosinophils % (A) 1 %; HGB 14.3 gm/dL (11.4-16.0); Lymphocytes # (A) 2.5 k/uL (1.0-4.8); Lymphocytes % (A) 24 %; MCH 29.2 pg (25.0-35.0); MCHC 33.3 g/dL (31.0-37.0); MCV 87.6 fL (80.0-100.0); Mean Platelet Volume 7.8; Monocytes # (A) 0.3 k/uL (0-1.0); Monocytes % (A) 3 %; Neutrophils # (A) 7.3 k/uL (1.3-7.7); Neutrophils % (A) 70 %; Platelet Count 318 k/uL (150-450); RBC 4.91 m/uL (3.80-5.40); RDW 13.2 % (11.5-15.5); WBC 10.4 k/uL (3.8-10.6)
[2023-06-19 10:50] LABS: HCG,Qualitative Serum Not Detected
[2023-06-19 10:57] LABS: INR 0.8 (<1.2); Partial Thromboplastin Time 24.3 sec (22.0-30.0); Prothrombin Time 9.6 sec (10.0-12.5)
--- NOTE | 2023-06-19 11:00 | XR ---
EXAMINATION TYPE: XR chest 2V DATE OF EXAM: 06/19/2023 COMPARISON: 01/26/2021 TECHNIQUE: PA and lateral views submitted. HISTORY: Pain FINDINGS: The lungs are clear and there is no pneumothorax, pleural effusion, or focal pneumonia. Heart size normal and no overt failure. Osseous structures demonstrate hypertrophic and degenerative changes of the spine. IMPRESSION: 1. No acute process.
[2023-06-19 11:40] LABS: ALT 28 U/L (4-34); African American GFR (CKD) >90 (>60 ml/min/1.73 sqM); Albumin 4.4 g/dL (3.5-5.0); Anion Gap 14 mmol/L; Blood Urea Nitrogen 12 mg/dL (7-17); Calcium 9.2 mg/dL (8.4-10.2); Carbon Dioxide 17 mmol/L (22-30); Chloride 108 mmol/L (98-107); Glucose 94 mg/dL (74-99); Non-African American GFR(CKD) >90 (>60 ml/min/1.73 sqM); Sodium 139 mmol/L (137-145); Total Bilirubin 0.6 mg/dL (0.2-1.3); Total Protein 7.6 g/dL (6.3-8.2)
[2023-06-19 11:41] LABS: Potassium 4.8 mmol/L (3.5-5.1)
[2023-06-19 11:42] LABS: AST 34 U/L (14-36); Alkaline Phosphatase 65 U/L (38-126); Magnesium 1.9 mg/dL (1.6-2.3)
[2023-06-19 12:13] VITALS: BP 121/78; PULSE 101; RESP 18; TEMP 98
== END 2023-06-19 12:22 | disposition home or self-care (01) ==
LOC: EC 09:36
DX: R07.89 Other chest pain (principal); M25.511 Pain in right shoulder; K21.9 Gastro-esophageal reflux disease without esophagitis; F41.9 Anxiety disorder, unspecified; F32.A Depression, unspecified; Z79.899 Other long term (current) drug therapy; Z88.0 Allergy status to penicillin; Z88.1 Allergy status to other antibiotic agents; Z88.2 Allergy status to sulfonamides; Z88.5 Allergy status to narcotic agent; Z88.8 Allergy status to other drugs, medicaments and biological substances; Z90.49 Acquired absence of other specified parts of digestive tract
CPT/HCPCS: 36415; 71046; 80053; 83735; 84484; 84703; 85025; 85379; 85610; 85730; 93005; 96360; 99285

== ENCOUNTER 2024-08-26 23:55 | Emergency (ER) | payer BC, OTHER ==
--- NOTE | 2024-08-27 00:16 | ED ---
Abdominal Pain HPI - General Chief Complaint: Abdominal Pain Stated Complaint: Anxiety Time Seen by Provider: 08/26/24 23:59 Source: patient, EMS, RN notes reviewed Mode of arrival: EMS Limitations: no limitations - History of Present Illness Initial Comments: This is a 34-year-old female who presents to the emergency department for acid reflux. States that she woke up from her sleep with a royal of acid in her chest and feeling like her abdomen is "full". She took 4 Tums without much relief. She is on omeprazole daily, but states that she has never had a large amount of acid like this before. States that she ate chicken last night for dinner. States that she is also very anxious and concerned she is going to have a panic attack. She does have a history of anxiety. She is supposed to take Klonopin, but states that the thought of that also makes her anxious so she often does not take it. Denies any changes in bowel/bladder habits. She does not currently feel nauseous. MD Complaint: abdominal pain - Related Data Home Medications Medication Instructions Recorded Confirmed Omeprazole [PriLOSEC] 20 mg PO HS 07/22/19 07/11/21 lamoTRIgine [LaMICtal] 50 mg PO QAM 07/22/19 07/11/21 Famotidine [Pepcid] 40 mg PO HS 01/26/21 07/11/21 clonazePAM [Klonopin ODT Wafer] 0.25 mg PO BID PRN 01/26/21 07/11/21 Children's Tylenol Powder 500 mg PO Q6H PRN 02/15/21 07/11/21 Amoxicillin 500 mg PO BID 06/22/21 07/11/21 Previous Rx's Medication Instructions Recorded Amoxicillin 500 mg PO BID 10 Days #125 ml 09/10/21 Cephalexin [Keflex] 500 mg PO Q12HR 7 Days #2 cap 09/10/21 cephALEXin [Keflex Susp] 500 mg PO BID 10 Days #200 ml 09/10/21 Famotidine 40 mg PO BID 7 Days #100 ml 08/27/24 Allergies Allergy/AdvReac Type Severity Reaction Status Date / Time amoxicillin [From Augmentin] Allergy Unknown Verified 08/27/24 00:10 ciprofloxacin [From Cipro] Allergy Itching Verified 08/27/24 00:10 clavulanic acid Allergy Unknown Verified 08/27/24 00:10 [From Augmentin] codeine Allergy Itching Verified 08/27/24 00:10 nitrofurantoin Allergy Itching Verified 08/27/24 00:10 [From Macrobid] prochlorperazine Allergy Unknown Verified 08/27/24 00:10 [From Compazine] Sulfa (Sulfonamide Allergy Itching Verified 08/27/24 00:10 Antibiotics) sulfamethoxazole Allergy Itching Verified 08/27/24 00:10 [From Bactrim] trimethoprim [From Bactrim] Allergy Itching Verified 08/27/24 00:10 phenazopyridine AdvReac Abdominal Verified 08/27/24 00:10 [From Pyridium] Pain Review of Systems ROS Statement: Those systems with pertinent positive or pertinent negative responses have been documented in the HPI. ROS Other: All systems not noted in ROS Statement are negative. 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 c/o issues swallowing, feels food gets stuck in her throat. Hx tachycardia, poss R/T anxiety History of Any Multi-Drug Resistant Organisms: None Reported Past Surgical History: Appendectomy, Cholecystectomy, Hysterectomy Additional Past Surgical History / Comment(s): EGD x3. [place] teeth Past Anesthesia/Blood Transfusion Reactions: Postoperative Nausea & Vomiting (PONV) Additional Past Anesthesia/Blood Transfusion Reaction / Comment(s): Awakens in panic w/ General Anesthesia. (no hx blood transfusion) Past Psychological History: Anxiety, Depression Smoking Status: Never smoker Past Alcohol Use History: None Reported Past Drug Use History: None Reported - Past Family History Mother Family Medical History: No Reported History General Exam Limitations: no limitations General appearance: alert, anxious Head exam: Present: atraumatic, normocephalic, normal inspection Respiratory exam: Present: normal lung sounds bilaterally. Absent: respiratory distress, wheezes, rales, rhonchi, stridor Cardiovascular Exam: Present: regular rate, normal rhythm, normal heart sounds. Absent: systolic murmur, diastolic murmur, rubs, gallop, clicks GI/Abdominal exam: Present: soft, normal bowel sounds. Absent: distended, tenderness Neurological exam: Present: alert, oriented X3, CN II-XII intact Psychiatric exam: Present: normal affect, normal mood Skin exam: Present: warm, dry, intact, normal color. Absent: rash Course Vital Signs 08/27/24 08/27/24 08/27/24 00:05 03:26 04:06 Temperature 98.7 F 98.1 F 98.2 F Pulse Rate 107 H 125 H 103 H Respiratory 18 20 18 Rate Blood Pressure 135/94 125/80 116/73 O2 Sat by Pulse 100 100 97 Oximetry Medical Decision Making - Medical Decision Making This is a 34-year-old female who presents to the emergency department for abdominal pain. Was pt. sent in by a medical professional or institution? @ -No Did you speak to anyone other than the patient for history? @ -No Did you review nursing and triage notes? @ -Yes, and I agree, it is accurate with regards to the patient's symptoms. Were old charts reviewed? @ -No Differential Diagnosis? @ -Differential Abdominal Pain Women: Appendicitis, Cholecystitis, diverticulosis, ischemic bowel, pancreatitis, hepatitis, UTI, gastroenteritis, AAA, incarcerated hernia, bowel obstruction, constipation, inflammatory bowel, hepatitis, peptic ulcer disease, splenic infarction, perforated viscus, vulvitis, ovarian torsion, PID, kidney stone, placenta abruption, this is not meant to be an all-inclusive list EKG interpreted by me (3pts min.)? @ -EKG interpreted by me demonstrating the following: Sinus tachycardia. Ventricular rate 120 bpm, OR interval 168 ms, QRS duration 76 ms, QTc 394 ms. X-rays interpreted by me (1pt min.)? @ -KUB x-ray obtained. My interpretation identifies no dilation of the bowel loops. CT interpreted by me (1pt min.)? @ -Not obtained U/S interpreted by me (1pt. min.)? @ -Not obtained What testing was considered but not performed? (CT, X-rays, U/S, labs)? Why? @ -CT scan of the abdomen and pelvis, however patient declined as her pain had settled down. What meds were considered but not given? Why? @ -Levsin, however patient was too scared to take it. Famotidine, however she could not swallow the pills. Did you discuss the management of the patient with other professionals? @ -No Did you reconcile home meds? @ -No Was smoking cessation discussed for >3mins.? @ -No Was critical care preformed (if so, how long)? @ -No Were there social determinants of health that impacted care today? How? (Homelessness, low income, unemployed, alcoholism, drug addiction, transportation, low edu. Level, literacy, decrease access to med. care, long term, rehab)? @ -No Was there de-escalation of care discussed even if they declined? (Discuss DNR or withdrawal of care, Hospice)? @ -No What co-morbidities impacted this encounter? (DM, HTN, Smoking, COPD, CAD, Cancer, CVA, Hep., AIDS, mental health diagnosis, sleep apnea, morbid obesity)? @ -Anxiety, GERD Was patient admitted / discharged? @ -Discharged. Lab work demonstrates leukocytosis with a white blood cell count of 16.9 and was otherwise unremarkable. KUB x-ray reveals no acute process. States that she has had a sensation of acid reflux and some "pressure" near the top of her abdomen, but denies any severe pain. I did offer a CT scan of the abdomen and pelvis due to the leukocytosis, however she declined as her pain was not severe and is more of the acid reflux sensation. She was given Maalox with some improvement. We were going to give her the Levsin with this, however she refused because she is very sensitive to medication. She was later agreeable to a dose of famotidine, however the pharmacy here only carries the pills which she could not swallow, so she ended up declining this. She continued to be very anxious throughout her visit here. She was given a dose of Ativan with only some improvement and was then afraid to take more anxiety medication. We did end up getting her symptoms to a controllable level in terms of the reflux and anxiety. Prescription for 7-day course of famotidine provided to take with the omeprazole for further management of the reflux. Advised she otherwise follow back up with her primary care provider. Patient discharged home in stable condition. Case discussed with ED attending Dr. Frederick. Return precautions reviewed in depth, the patient is instructed to return to the emergency department with any new, worsening, or concerning symptoms. Patient verbalized understanding. Undiagnosed new problem with uncertain prognosis? @ -None Drug Therapy requiring intensive monitoring for toxicity (Heparin, Nitro, Insulin, Cardizem)? @ -None Were any procedures done? @ -None Diagnosis/symptom? @ -Esophageal reflux, panic attack Acute, or Chronic, or Acute on Chronic? @ -Acute Uncomplicated (without systemic symptoms) or Complicated (systemic symptoms)? @ -Uncomplicated Side effects of treatment? @ None Exacerbation, Progression, or Severe Exacerbation] @ -Not applicable Poses a threat to life or bodily function? @ -No - Lab Data Result diagrams: 08/27/24 00:24 08/27/24 00:24 Lab Results 08/27/24 08/27/24 08/27/24 Range/Units 00:11 00:24 00:24 WBC 16.9 H (3.8-10.6) k/uL RBC 4.90 (3.80-5.40) m/uL Hgb 13.8 (11.4-16.0) gm/dL Hct 42.7 (34.0-46.0) % MCV 87.2 (80.0-100.0) fL MCH 28.3 (25.0-35.0) pg MCHC 32.4 (31.0-37.0) g/dL RDW 13.6 (11.5-15.5) % Plt Count 431 (150-450) k/uL MPV 8.0 Neutrophils % 88 % Lymphocytes % 9 % Monocytes % 3 % Eosinophils % 0 % Basophils % 0 % Neutrophils # 14.9 H (1.3-7.7) k/uL Lymphocytes # 1.5 (1.0-4.8) k/uL Monocytes # 0.4 (0-1.0) k/uL Eosinophils # 0.0 (0-0.7) k/uL Basophils # 0.0 (0-0.2) k/uL Sodium 139 (137-145) mmol/L Potassium 4.2 (3.5-5.1) mmol/L Chloride 106 (98-107) mmol/L Carbon Dioxide 21 L (22-30) mmol/L Anion Gap 12 mmol/L BUN 14 (7-17) mg/dL Creatinine 0.52 (0.52-1.04) mg/dL Est GFR (CKD-EPI)AfAm >90 (>60 ml/min/1.73 sqM) Est GFR (CKD-EPI)NonAf >90 (>60 ml/min/1.73 sqM) Glucose 167 H (74-99) mg/dL Plasma Lactic Acid [place] (0.7-2.0) mmol/L Calcium 9.7 (8.4-10.2) mg/dL Total Bilirubin 0.4 (0.2-1.3) mg/dL AST 19 (14-36) U/L ALT 24 (4-34) U/L Alkaline Phosphatase 73 (38-126) U/L Total Protein 7.4 (6.3-8.2) g/dL Albumin 4.5 (3.5-5.0) g/dL Amylase 66 (30-110) U/L Lipase 253 (23-300) U/L Urine Color Colorless Urine Appearance Clear (Clear) Urine pH 6.5 (5.0-8.0) Ur Specific [place] 1.014 (1.001-1.035) Urine Protein Negative (Negative) Urine Glucose (UA) Negative (Negative) Urine Ketones Negative (Negative) Urine Blood Negative (Negative) Urine Nitrite Negative (Negative) Urine Bilirubin Negative (Negative) Urine Urobilinogen <2.0 (<2.0) mg/dL Ur Leukocyte Esterase Small H (Negative) Urine WBC 3 (0-5) /hpf Ur Squamous Epith Cells 9 H (0-4) /hpf Amorphous Sediment Rare H (None) /hpf Urine Mucus Occasional H (None) /hpf 08/27/ Range/Units 00:24 WBC (3.8-10.6) k/uL RBC (3.80-5.40) m/uL Hgb (11.4-16.0) gm/dL Hct (34.0-46.0) % MCV (80.0-100.0) fL MCH (25.0-35.0) pg MCHC (31.0-37.0) g/dL RDW (11.5-15.5) % Plt Count (150-450) k/uL MPV Neutrophils % % Lymphocytes % % Monocytes % % Eosinophils % % Basophils % % Neutrophils # (1.3-7.7) k/uL Lymphocytes # (1.0-4.8) k/uL Monocytes # (0-1.0) k/uL Eosinophils # (0-0.7) k/uL Basophils # (0-0.2) k/uL Sodium (137-145) mmol/L Potassium (3.5-5.1) mmol/L Chloride (98-107) mmol/L Carbon Dioxide (22-30) mmol/L Anion Gap mmol/L BUN (7-17) mg/dL Creatinine (0.52-1.04) mg/dL Est GFR (CKD-EPI)AfAm (>60 ml/min/1.73 sqM) Est GFR (CKD-EPI)NonAf (>60 ml/min/1.73 sqM) Glucose (74-99) mg/dL Plasma Lactic Acid [place]ino[place] 1.9 (0.7-2.0) mmol/L Calcium (8.4-10.2) mg/dL Total Bilirubin (0.2-1.3) mg/dL AST (14-36) U/L ALT (4-34) U/L Alkaline Phosphatase (38-126) U/L Total Protein (6.3-8.2) g/dL Albumin (3.5-5.0) g/dL Amylase (30-110) U/L Lipase (23-300) U/L Urine Color Urine Appearance (Clear) Urine pH (5.0-8.0) Ur Specific [place] (1.001-1.035) Urine Protein (Negative) Urine Glucose (UA) (Negative) Urine Ketones (Negative) Urine Blood (Negative) Urine Nitrite (Negative) Urine Bilirubin (Negative) Urine Urobilinogen (<2.0) mg/dL Ur Leukocyte Esterase (Negative) Urine WBC (0-5) /hpf Ur Squamous Epith Cells (0-4) /hpf Amorphous Sediment (None) /hpf Urine Mucus (None) /hpf - Radiology Data Radiology results: report reviewed, image reviewed Disposition Clinical Impression: Esophageal reflux, Anxiety Disposition: HOME SELF-CARE Instructions (If sedation given, give patient instructions): Diet for Stomach Ulcers and Gastritis (ED), GERD (Gastroesophageal Reflux Disease) (ED) Additional Instructions: Return to the emergency department with any new, worsening, or concerning symptoms. Continue taking your omeprazole and begin taking the famotidine twice daily for the next week. You can also continue to use Tums as needed for breakthrough symptoms. Follow up with your primary care provider in 1-2 days. Prescriptions: Famotidine 40 mg PO BID 7 Days #100 ml Is patient prescribed a controlled substance at d/c from ED?: No Referrals: Daniel Shell MD [Primary Care Provider] - 1-2 days Time of Disposition: 03:48
[2024-08-27] MEDS: LORazepam 2 MG/ML INJ IV STA ×2 (00:29→03:25)
[2024-08-27 01:03] LABS: Amorphous Sediment,Urine Rare /hpf; Appearance,Urine Clear (Clear); Bilirubin,Urine Negative (Negative); Blood,Urine Negative (Negative); Color,Urine Colorless; Glucose,Urine (UA) Negative (Negative); Ketones,Urine Negative (Negative); Leukocyte Esterase,Urine Small (Negative); Mucus,Urine Occasional /hpf; Nitrite,Urine Negative (Negative); PH, Urine 6.5 (5.0-8.0); Protein,Urine Negative (Negative); Specific Gravity,Urine 1.014 (1.001-1.035); Squamous Epithelial Cell,Urine 9 /hpf (0-4); Urobilinogen,Urine <2.0 mg/dL (<2.0); WBC,Urine 3 /hpf (0-5)
--- NOTE | 2024-08-27 02:00 | XR ---
EXAM: XR Abdomen, 1 View CLINICAL HISTORY: Pt presents to ER via EMS. Pt states she awoke out of her sleep, "coughing up acid." Pt states she continues to feel this way upon arrival in ER.: abdominal pain TECHNIQUE: Frontal supine view of the abdomen/pelvis. COMPARISON: 07/09/21 FINDINGS: Gastrointestinal tract: Unremarkable. No dilation. Bones/joints: No fracture or dislocation. IMPRESSION: Normal abdominal x-ray.
[2024-08-27] MEDS: MAG HYDROX/AL HYDROX/SIMETH 30 ML CUP PO STA (02:16)
[2024-08-27] MEDS: SODIUM CHLORIDE 0.9% 1,000 ML IV STA (02:16)
[2024-08-27] MEDS: HYOSCYAMINE ELIXIR 250 MCG/10 ML BTL PO STA (02:16)
[2024-08-27 03:03] LABS: Basophils % (A) 0 %; Eosinophils % (A) 0 %; HCT 42.7 % (34.0-46.0); HGB 13.8 gm/dL (11.4-16.0); Lymphocytes # (A) 1.5 k/uL (1.0-4.8); Lymphocytes % (A) 9 %; MCH 28.3 pg (25.0-35.0); MCHC 32.4 g/dL (31.0-37.0); MCV 87.2 fL (80.0-100.0); Monocytes # (A) 0.4 k/uL (0-1.0); Monocytes % (A) 3 %; Neutrophils # (A) 14.9 k/uL (1.3-7.7); Neutrophils % (A) 88 %; Platelet Count 431 k/uL (150-450); RDW 13.6 % (11.5-15.5); WBC 16.9 k/uL (3.8-10.6)
[2024-08-27 03:31] LABS: ALT 24 U/L (4-34); AST 19 U/L (14-36); African American GFR (CKD) >90 (>60 ml/min/1.73 sqM); Albumin 4.5 g/dL (3.5-5.0); Alkaline Phosphatase 73 U/L (38-126); Amylase 66 U/L (30-110); Anion Gap 12 mmol/L; Blood Urea Nitrogen 14 mg/dL (7-17); Calcium 9.7 mg/dL (8.4-10.2); Carbon Dioxide 21 mmol/L (22-30); Chloride 106 mmol/L (98-107); Glucose 167 mg/dL (74-99); Lipase 253 U/L (23-300); Non-African American GFR(CKD) >90 (>60 ml/min/1.73 sqM); Potassium 4.2 mmol/L (3.5-5.1); Sodium 139 mmol/L (137-145); Total Bilirubin 0.4 mg/dL (0.2-1.3); Total Protein 7.4 g/dL (6.3-8.2)
[2024-08-27] MEDS: FAMOTIDINE 20 MG TAB PO STA ×2 (03:57→04:08)
[2024-08-27 04:08] VITALS: BP 116/73; PULSE 103; RESP 18; TEMP 98.2
== END 2024-08-27 04:06 | disposition home or self-care (01) ==
LOC: EC 23:55
DX: K21.9 Gastro-esophageal reflux disease without esophagitis (principal); F41.9 Anxiety disorder, unspecified; Z88.2 Allergy status to sulfonamides; Z88.1 Allergy status to other antibiotic agents; Z88.0 Allergy status to penicillin; Z88.8 Allergy status to other drugs, medicaments and biological substances
CPT/HCPCS: 36415; 93005; 80053; 82150; 83605; 83690; 85025; 81001; 74018; 99284; 96374; 96376; 96361 ×2; J2060